=== PATIENT | female | born 1950 | race African-American/Black ===

== ENCOUNTER 2017-06-13 06:32 | Inpatient (IN) | payer OTHER ==
[~2017-06-13] VITALS: Ht 160 cm; Wt 68.0 kg
[~2017-06-13 06:32] MED LIST: ALLO300T PO; ASCO500T2 PO; CHOL400T2 PO; CIPR500T94 PO; FOLI1TAB16 PO; GABA-585 PO; LISI1TAB3 PO; OMEP20CA9 PO; OMEP40CA5 PO; VITA400C36 PO
[2017-06-13] MEDS ORDERED: IV NORMAL SALINE 1000ML BAG 1,000 ML IV SCH (06:44)
[2017-06-13] MEDS ORDERED: ONDANSETRON PF 4 MG/2 ML VIAL. IV ONE (06:45)
[2017-06-13 07:00] LABS: BASO % 0 % (0-3); EOS % 0 % (0-3); HEMATOCRIT 40.3 % (36.0-47.0); HEMOGLOBIN 14.3 g/dL (12.0-15.5); LYMPH # 0.4 x10^3/uL (1.0-4.8); LYMPH % 5 % (24-48); MEAN CORPUSCULAR HEMOGLOBIN 34 pg (25-35); MEAN CORPUSCULAR HGB CONC 36 g/dL (31-37); MEAN CORPUSCULAR VOLUME 96 fL (79-100); MONO % 9 % (0-9); NEUT % 85 % (31-73); PLATELET COUNT 353 x10^3/uL (140-400); RED BLOOD COUNT 4.21 x10^6/uL (3.50-5.40); RED CELL DISTRIBUTION WIDTH 14.7 % (11.5-14.5); WHITE BLOOD COUNT 8.3 x10^3/uL (4.0-11.0)
[2017-06-13] MEDS: fentaNYL PF VIAL 100 MCG/2 ML VIAL IV PRN ×6 (07:07→15:23)
[2017-06-13 07:26] LABS: CALCIUM 9.6 mg/dL (8.5-10.1); GFR 67.5; POTASSIUM 3.6 mmol/L (3.5-5.1)
[2017-06-13 07:38] LABS: ALBUMIN 3.7 g/dL (3.4-5.0); ALBUMIN/GLOBULIN RATIO 0.8 (1.0-1.7); TOTAL BILIRUBIN 0.6 mg/dL (0.2-1.0); TOTAL PROTEIN 8.3 g/dL (6.4-8.2)
[2017-06-13] MEDS ORDERED: IOHEXOL 300 MG/ML 75 ML VIAL IV ONE (07:45)
[2017-06-13] MEDS ORDERED: CONTRAST GIVEN MC PRN (08:00)
--- NOTE | 2017-06-13 08:15 | PHYS DOC ---
Past Medical History Past Medical History: Anemia, GERD, Hypertension, Unknown Additional Past Medical Histor: ULCERS, NEUROPATHY Past Surgical History: Hysterectomy Additional Past Surgical Histo: LAP Alcohol Use: Occasionally Drug Use: None Adult General Chief Complaint Chief Complaint: ABDOMINAL PAIN HPI HPI Patient is a 66 year old female brought to the ED by EMS from home with the complaint of abdominal pain and nausea and vomiting. Patient attributes this to eating [place] food. She doesn't remember when she ate it, she thinks yesterday for lunch. She thinks her stomach started hurting first. She has vomited about 3 times. No blood in the vomit. She's had no diarrhea "but I feel it coming on" . Patient had an episode like this once before and was hospitalized here [place]. It has not been a recurrent problem for her. She has no history of bowel obstruction. Patient does have a history of laparotomy for a perforated ulcer in the past. She has had a hysterectomy but she still has her gallbladder and appendix. In terms of alcohol, the patient states she does drink beer. She is not able to quantify how much better she drinks but they buy it in 30 packs. The patient states she wakes up about 11:00 and she has her first beer about 11:30 and she drinks off and on all day long but doesn't get drunk. PCP in [place] Review of Systems Review of Systems Constitutional: Denies fever or chills [] Respiratory: Denies cough or shortness of breath [] Cardiovascular: No additional information not addressed in HPI [] GI: As in history of present illness : Denies dysuria or hematuria [] Musculoskeletal: Denies back pain or joint pain [] Integument: Denies rash or skin lesions [] Current Medications Current Medications Current Medications Medications (Trade) Dose Ordered Sig/Suhas Start Time Stop Time Status Last Admin Dose Admin Fentanyl Citrate (Fentanyl 2ml Vial) 50 mcg PRN Q15MIN PRN 06/13/17 06:45 06/14/17 06:44 06/13/17 08:29 50 MCG Info (Do NOT chart on this entry -- for MONITORING) 1 each PRN DAILY PRN 06/13/17 08:00 06/15/17 07:59 Iohexol (Omnipaque 300 Mg/ml) 75 ml 1X ONCE 06/13/17 07:45 06/13/17 07:47 DC 06/13/17 07:53 75 ML Ondansetron HCl (Zofran) 4 mg 1X ONCE 06/13/17 06:45 06/13/17 06:48 DC 06/13/17 07:05 4 MG Sodium Chloride 1,000 ml @ 1,000 mls/hr Q1H 06/13/17 06:44 06/13/17 07:43 DC 06/13/17 07:05 1,000 MLS/HR Allergies Allergies Allergies Coded Allergies Type Severity Reaction Last Updated Verified No Known Medication Allergies Allergy Unknown 02/16/16 Yes aspirin Adverse Reaction Intermediate HX OF PERFORATED ULCERS 02/16/16 Yes Physical Exam Physical Exam Constitutional: Well developed, well nourished, alert, mentating normally, warm and dry, appears uncomfortable, writhing about on the cart. HENT: Normocephalic, atraumatic, bilateral external ears normal, nose normal. [ ] Eyes: conjunctiva normal, no discharge. [] Neck: Normal range of motion, no stridor. [] Cardiovascular:Heart rate regular rhythm, no murmur [] Lungs & Thorax: Bilateral breath sounds clear to auscultation [] Abdomen: Soft, nondistended, no increased tympany. Bowel sounds are present. The abdomen is diffusely tender to light palpation. Most tenderness is periumbilical and supraumbilical. No rebound or guarding. No mass, no pulsatile mass. Skin: Warm, dry, no erythema, no rash. [] Extremities: No tenderness, no cyanosis, no clubbing, ROM intact, no edema. [] Neurologic: Alert and oriented X 3, normal motor function, no focal deficits noted. [] Current Patient Data Vital Signs Vital Signs Date Time Temp Pulse Resp B/P (MAP) Pulse Ox O2 Delivery O2 Flow Rate FiO2 06/13/17 08:00 82 206/103 (137) 06/13/17 07:30 15 92 Room Air 06/13/17 06:37 98.2 98.2 Lab Values Laboratory Tests Test 06/13/17 06:50 White Blood Count 8.3 x10^3/uL (4.0-11.0) Red Blood Count 4.21 x10^6/uL (3.50-5.40) Hemoglobin 14.3 g/dL (12.0-15.5) Hematocrit 40.3 % (36.0-47.0) Mean Corpuscular Volume 96 fL (79-100) Mean Corpuscular Hemoglobin 34 pg (25-35) Mean Corpuscular Hemoglobin Concent 36 g/dL (31-37) Red Cell Distribution Width 14.7 % (11.5-14.5) H Platelet Count 353 x10^3/uL (140-400) Neutrophils (%) (Auto) 85 % (31-73) H Lymphocytes (%) (Auto) 5 % (24-48) L Monocytes (%) (Auto) 9 % (0-9) Eosinophils (%) (Auto) 0 % (0-3) Basophils (%) (Auto) 0 % (0-3) Neutrophils # (Auto) 7.1 x10^3uL (1.8-7.7) Lymphocytes # (Auto) 0.4 x10^3/uL (1.0-4.8) L Monocytes # (Auto) 0.7 x10^3/uL (0.0-1.1) Eosinophils # (Auto) 0.0 x10^3/uL (0.0-0.7) Basophils # (Auto) 0.0 x10^3/uL (0.0-0.2) Platelet Estimate Pending Sodium Level 121 mmol/L (136-145) L Potassium Level 3.6 mmol/L (3.5-5.1) Chloride Level 82 mmol/L (98-107) L Carbon Dioxide Level 29 mmol/L (21-32) Anion Gap 10 (6-14) Blood Urea Nitrogen 10 mg/dL (7-20) Creatinine 1.0 mg/dL (0.6-1.0) Estimated GFR (Cockcroft-Gault) 67.5 BUN/Creatinine Ratio 10 (6-20) Glucose Level 158 mg/dL (70-99) H Calcium Level 9.6 mg/dL (8.5-10.1) Total Bilirubin 0.6 mg/dL (0.2-1.0) Aspartate Amino Transferase (AST) 22 U/L (15-37) Alanine Aminotransferase (ALT) 28 U/L (14-59) Alkaline Phosphatase 169 U/L (46-116) H Total Protein 8.3 g/dL (6.4-8.2) H Albumin 3.7 g/dL (3.4-5.0) Albumin/Globulin Ratio 0.8 (1.0-1.7) L Lipase 1721 U/L (73-393) H Laboratory Tests 06/13/17 06:50 Laboratory Tests 06/13/17 06:50 EKG EKG [] Radiology/Procedures Radiology/Procedures [] Course & Med Decision Making Course & Med Decision Making Pertinent Labs and Imaging studies reviewed. (See chart for details) 66-year-old female who is in good general health presents with acute onset yesterday of abdominal pain with 3 episodes of vomiting. I discussed with the patient we will start some IV fluids, IV pain and nausea medication. She is agreeable to that plan. I reviewed her chart. She was seen here last year for similar episode and recovered quickly. At that time her lipase was just above the upper limit of normal. There is a possible pancreas abnormality on the CT scan that recommended follow-up with her primary care physician. I discussed with the patient and she states that she has had a couple of scan since then. They check it about every 6 months. As far she know she believes it is stable. Today, she has acute pancreatitis. Also hyponatremia. I discussed the case with Dr. Liang, [facility]. He will admit the patient. I wrote bridge orders. [] Dragon Disclaimer Dragon Disclaimer This electronic medical record was generated, in whole or in part, using a voice recognition dictation system. Departure Departure Impression: Primary Impression: Acute pancreatitis Disposition: ADMITTED INPATIENT Admitting Physician: Yelena Liang Condition: STABLE Referrals: JENARO TOWNSEND (PCP) REG QURESHI MD Jun 13, 2017 08:15
[2017-06-13] MEDS ORDERED: ONDANSETRON PF 4 MG/2 ML VIAL. IV PRN (08:30)
--- NOTE | 2017-06-13 08:47 | RAD ---
CT of the abdomen and pelvis with contrast, 06/13/2017: History: Abdominal pain, nausea and vomiting Multidetector CT imaging was performed following an IV bolus injection of iodinated contrast material. No oral contrast material was administered for this study. Comparison is made to a study from 02/17/2016. There are mild streaky opacities in both lung bases compatible with atelectasis. There is no evidence of a hepatic mass or bile duct dilatation. The gallbladder is unremarkable. The pancreatic head cannot be clearly from the unopacified duodenum, however, it appears to be mildly enlarged. It demonstrates heterogeneously decreased density relative to the pancreatic body. On the previous study there was a cystic lesion at this level, no longer visible. There is a new 3 cm cystic structure related to the pancreatic tail adjacent to the splenic hilum. There was no mass or unusual cystic structure in this region on the previous CT study. There is minimal streaky increased density in the adjacent pancreatic compatible with inflammation. The findings suggest chronic or recurrent pancreatitis with pseudocyst formation. The spleen shows no intrinsic abnormality. There is a small adjacent accessory splenule. There are several small cysts in the kidneys. The kidneys show no evidence of obstruction. There is moderate aortoiliac calcific plaquing with slight unchanged dilatation of the infrarenal abdominal aorta. The uterus is surgically absent. No abdominal or pelvic adenopathy is detected. The bowel loops are not dilated. A portion of the appendix is visualized and it shows no abnormality. There appears to be mild mural thickening involving the distal aspect of the stomach, although lack of gastric distention may be contributing to this appearance. No free air is present in the abdomen. There is a small amount of free fluid in the deep pelvis, increased since the previous study. Again noted is a small ventral hernia along superior aspect of the umbilicus, containing only fat. IMPRESSION: 1. Abnormal pancreas with a new cyst in the pancreatic tail and mild adjacent peripancreatic inflammation. The previously seen cyst in the pancreatic head has resolved with residual abnormal heterogeneity in the pancreatic head. The findings suggest recurrent anchored tightness with pseudocyst formation. A pancreatic head neoplasm cannot be entirely excluded and follow-up imaging is suggested. 2. Mild mural thickening involving the distal stomach suggesting nonspecific gastritis. 3. Small amount of free fluid in the pelvis. 4. Ventral hernia containing only fat. PQRS Compliance Statement: One or more of the following individualized dose reduction techniques were utilized for this examination: 1. Automated exposure control 2. Adjustment of the mA and/or kV according to patient size 3. Use of iterative reconstruction technique
[2017-06-13 09:36] LABS: PLT ESTIMATE ADEQUATE (ADEQUATE)
[2017-06-13] MEDS ORDERED: cloNIDine HCL 0.2 MG TABLET PO PRN (10:00)
[2017-06-13] MEDS ORDERED: cloNIDine HCL 0.3 MG TABLET PO STA (10:03)
[2017-06-13] MEDS: IV NORMAL SALINE 1000ML BAG 1,000 ML IV SCH ×2 (10:26→21:56)
--- NOTE | 2017-06-13 11:22 | HP ---
ADMIT DATE: 06/13/2017 CHIEF COMPLAINT: Abdominal pain. HISTORY OF PRESENT ILLNESS: The patient is a pleasant 66-year-old female who presents to the ER with abdominal pain. We checked some enzymes, her lipase is high. We suspect she has pancreatitis. She rates her symptoms at 9/10, worse with food, better with sitting still. I discussed the case with the ER physician. We are going to admit the patient with alcoholic pancreatitis. PAST MEDICAL HISTORY: Probable alcoholism. She states she drinks beer daily, anemia, GERD, hypertension, peptic ulcer disease, neuropathy, laparoscopic exploration. ALLERGIES: ASPIRIN. FAMILY HISTORY: Diabetes. SOCIAL HISTORY: She does smoke and she drinks daily. MEDICATIONS: Reviewed. REVIEW OF SYSTEMS: GENERAL: No history of weight change, weakness or fevers. SKIN: No bruising, hair changes or rashes. EYES: No blurred, double or loss of vision. NOSE AND THROAT: No history of nosebleeds, hoarseness or sore throat. HEART: No history of palpitations, chest pain or shortness of breath on exertion. LUNGS: Denies cough, hemoptysis, wheezing or shortness of breath. GASTROINTESTINAL: She complains of abdominal pain. GENITOURINARY: No history of frequency, urgency, hesitancy or nocturia. NEUROLOGIC: Denies history of numbness, tingling, tremor or weakness. PSYCHIATRIC: No history of panic, anxiety or depression. ENDOCRINE: No history of heat or cold intolerance, polyuria or polydipsia. EXTREMITIES: Denies muscle weakness, joint pain, pain on walking or stiffness. PHYSICAL EXAMINATION: VITAL SIGNS: Temperature afebrile, pulse 74, respirations 18, blood pressure 217/90. GENERAL: She is alert, cooperative. HEART: Normal S1, S2. LUNGS: Clear. ABDOMEN: Soft. Decreased bowel sounds, tender. EXTREMITIES: No edema. SKIN: No rashes. PSYCHIATRIC: She is depressed. VASCULAR: Good capillary refill. ENDOCRINE: No thyromegaly. LYMPHATICS: No cervical nodes. HEMATOPOIETIC: No bruising. LABORATORY DATA: Reviewed. ASSESSMENT AND PLAN: Alcoholic pancreatitis and hypertensive emergency. The patient is being admitted. We will give her p.r.n. , alcohol withdrawal protocol, n.p.o., IV fluids. Continue home medicines. YEISONL Jose Alfredo UPTON DO DR: Elizabeth JOB#: [id number] / [id number]
[2017-06-13 11:26] VITALS: BP 179/90
[2017-06-13] MEDS ORDERED: MULT1TAB52 PO (11:28)
[2017-06-13] MEDS ORDERED: COD1CAPS2 PO (11:28)
[2017-06-13] MEDS ORDERED: CYAN1TAB50 SL (11:28)
[2017-06-13] MEDS ORDERED: LISI1TAB7 PO (11:28)
[2017-06-13] MEDS ORDERED: BLAC80CA PO (11:28)
[2017-06-13] MEDS ORDERED: BIOT5000 PO (11:28)
[2017-06-13] MEDS ORDERED: MULT-658 PO (11:28)
[2017-06-13 11:31] VITALS: BP 179/90
[2017-06-13 11:59] LABS: BARBITURATES NEG (NEG); BENZODIAZEPINES NEG (NEG); CANNABINOIDS NEG (NEG); COCAINE NEG (NEG); METHADONE NEG (NEG); OPIATES NEG (NEG); PHENCYCLIDINE NEG (NEG)
[2017-06-13] MEDS: FAMOTIDINE 20 MG/2 ML VIAL IVP SCH ×2 (12:20→21:56)
--- NOTE | 2017-06-13 12:50 | PDOC2 ---
GI CONSULT Reason For Consult: Acute pancreatitis HPI: HPI: 66 y/o female admitted through ER. Tripped and fell on 06/09, has had some upper abd and chest pain since then; however pain became worse and complicated w / nausea after eating [place] food a few times over the weekend (first at the buffet, then leftovers at home). Thinks she has food poisoning. No vomiting or diarrhea. H/o GERD controlled w/ omeprazole QD, additional h/o gastric ulcer (thought to be NSAID related) requiring laparotomy (). Unclear if has had EGD since. No diarrhea, constipation, hematochezia, or melena. Last colonoscopy >10 years ago, recalls as normal. Had previous admission for abd pain and borderline elevated lipase. No gallbladder or liver history although drinks significantly, currently 8 beers daily. No NSAIDs. Workup here shows elevated lipase and abnormal CT w/ abnormal pancreas w/ new cyst in pancreatic tail and mild adjacent peripancreatic inflammation. Tox screen neg, Alk Phos 169, Na 121. RN called earlier - pt requesting omeprazole; was started on IV H2 jason. PMH: PMH: HTN, peripheral neuropathy, GERD, PUD, pancreatitis, OA, gout, UTIs, hysterectomy, laparotomy for FH: Family History: Cancer (leukemia), CVA, DM, Hypertension, Thyroid dysfunction Social History: Smoke: <1 pack per day ALCOHOL: heavy (currently about 8 cans of beer daily) Drugs: None ROS: GEN: Denies fevers, chills, sweats HEENT: Denies blurred vision, sore throat CV: Denies chest pain RESP: Denies shortness of air, cough GI: Per HPI : Denies hematuria, dysuria ENDO: Denies weight changes NEURO: Denies confusion, dizziness MSK: Denies weakness, joint pain/swelling SKIN: Denies jaundice, pruritus Vitals: Vitals: Vital Signs Date Time Temp Pulse Resp B/P (MAP) Pulse Ox O2 Delivery O2 Flow Rate FiO2 06/13/17 11:54 96 06/13/17 11:31 98.6 74 179/90 (119) 98.6 06/13/17 11:26 19 Room Air Labs: Labs: Laboratory Tests Test 06/13/17 06:50 06/13/17 08:21 White Blood Count 8.3 x10^3/uL (4.0-11.0) Red Blood Count 4.21 x10^6/uL (3.50-5.40) Hemoglobin 14.3 g/dL (12.0-15.5) Hematocrit 40.3 % (36.0-47.0) Mean Corpuscular Volume 96 fL (79-100) Mean Corpuscular Hemoglobin 34 pg (25-35) Mean Corpuscular Hemoglobin Concent 36 g/dL (31-37) Red Cell Distribution Width 14.7 % (11.5-14.5) Platelet Count 353 x10^3/uL (140-400) Neutrophils (%) (Auto) 85 % (31-73) Lymphocytes (%) (Auto) 5 % (24-48) Monocytes (%) (Auto) 9 % (0-9) Eosinophils (%) (Auto) 0 % (0-3) Basophils (%) (Auto) 0 % (0-3) Neutrophils # (Auto) 7.1 x10^3uL (1.8-7.7) Lymphocytes # (Auto) 0.4 x10^3/uL (1.0-4.8) Monocytes # (Auto) 0.7 x10^3/uL (0.0-1.1) Eosinophils # (Auto) 0.0 x10^3/uL (0.0-0.7) Basophils # (Auto) 0.0 x10^3/uL (0.0-0.2) Segmented Neutrophils % 92 % (35-66) Lymphocytes % 5 % (24-48) Monocytes % 3 % (0-10) Platelet Estimate Adequate (ADEQUATE) Sodium Level 121 mmol/L (136-145) Potassium Level 3.6 mmol/L (3.5-5.1) Chloride Level 82 mmol/L (98-107) Carbon Dioxide Level 29 mmol/L (21-32) Anion Gap 10 (6-14) Blood Urea Nitrogen 10 mg/dL (7-20) Creatinine 1.0 mg/dL (0.6-1.0) Estimated GFR (Cockcroft-Gault) 67.5 BUN/Creatinine Ratio 10 (6-20) Glucose Level 158 mg/dL (70-99) Calcium Level 9.6 mg/dL (8.5-10.1) Total Bilirubin 0.6 mg/dL (0.2-1.0) Aspartate Amino Transf (AST/SGOT) 22 U/L (15-37) Alanine Aminotransferase (ALT/SGPT) 28 U/L (14-59) Alkaline Phosphatase 169 U/L (46-116) Total Protein 8.3 g/dL (6.4-8.2) Albumin 3.7 g/dL (3.4-5.0) Albumin/Globulin Ratio 0.8 (1.0-1.7) Lipase 1721 U/L (73-393) Urine Opiates Screen Neg (NEG) Urine Methadone Screen Neg (NEG) Urine Barbiturates Neg (NEG) Urine Phencyclidine Screen Neg (NEG) Urine Amphetamine/Methamphetamine Neg (NEG) Urine Benzodiazepines Screen Neg (NEG) Urine Cocaine Screen Neg (NEG) Urine Cannabinoids Screen Neg (NEG) Urine Ethyl Alcohol Neg (NEG) Allergies: Coded Allergies: No Known Medication Allergies (Verified Allergy, Unknown, 02/16/16) aspirin (Verified Adverse Reaction, Intermediate, HX OF PERFORATED ULCERS , 02/16/16) Medications: Current Medications Medications (Trade) Dose Ordered Sig/Suhas Route PRN Reason Start Time Stop Time Status Last Admin Dose Admin Fentanyl Citrate (Fentanyl 2ml Vial) 50 mcg PRN Q15MIN PRN IV PAIN GREATER THAN 3/10 06/13/17 06:45 06/14/17 06:44 06/13/17 09:26 Sodium Chloride 1,000 ml @ 1,000 mls/hr Q1H IV 06/13/17 06:44 06/13/17 07:43 DC 06/13/17 07:05 Ondansetron HCl (Zofran) 4 mg 1X ONCE IV 06/13/17 06:45 06/13/17 06:48 DC 06/13/17 07:05 Iohexol (Omnipaque 300 Mg/ml) 75 ml 1X ONCE IV 06/13/17 07:45 06/13/17 07:47 DC 06/13/17 07:53 Ondansetron HCl (Zofran) 4 mg PRN Q8HRS PRN IV NAUSEA/VOMITING 06/13/17 08:30 06/14/17 08:29 06/13/17 10:26 Fentanyl Citrate (Fentanyl 2ml Vial) 50 mcg PRN Q2HR PRN IV PAIN 06/13/17 08:30 06/14/17 08:29 06/13/17 10:27 Sodium Chloride 1,000 ml @ 125 mls/hr Q8H IV 06/13/17 08:16 06/14/17 08:15 06/13/17 10:26 Clonidine HCl (Catapres) 0.3 mg 1X STAT PO 06/13/17 10:03 06/13/17 10:04 DC 06/13/17 10:22 Famotidine (Pepcid) 20 mg BID IVP 06/13/17 12:30 06/13/17 12:20 Imaging: Imaging: CT A/P IMPRESSION: 1. Abnormal pancreas with a new cyst in the pancreatic tail and mild adjacent peripancreatic inflammation. The previously seen cyst in the pancreatic head has resolved with residual abnormal heterogeneity in the pancreatic head. The findings suggest recurrent anchored tightness with pseudocyst formation. A pancreatic head neoplasm cannot be entirely excluded and follow-up imaging is suggested. 2. Mild mural thickening involving the distal stomach suggesting nonspecific gastritis. 3. Small amount of free fluid in the pelvis. 4. Ventral hernia containing only fat. PE: GEN: looks uncomfortable HEENT: Atraumatic, PERRL LUNGS: CTAB HEART: RRR ABD: epigastric and RUQ pain worst, some periumbilical, BS+ EXTREMITY: No edema SKIN: No rashes, no jaundice NEURO/PSYCH: A & O 3 A/P: A/P: Upper abd and chest pain, nausea Elevated lipase (1721), h/o pancreatitis, heavy alcohol use, abnormal CT -abnormal pancreas w/ new cyst in pancreatic tail and mild adjacent peripancreatic inflammation GERD, h/o requiring laparotomy -on PPI QD CRC screen -colonoscopy >10 years ago HTN Hyponatremia -- Likely alcohol-induced pancreatitis. NPO, supportive care. Empiric IV H2 jason. Defer hyponatremia to primary. Recent fall - ?CXR GLORIA KOHLI Jun 13, 2017 12:50
[2017-06-13 13:04] LABS: BILIRUBIN,URINE NEGATIVE (NEG); GLUCOSE,URINE 100 mg/dL (NEG); NITRITE,URINE NEGATIVE (NEG); PROTEIN,URINE NEGATIVE (NEG-TRACE); UROBILINOGEN,URINE 0.2 mg/dL (0.2 mg/dL)
[2017-06-13 13:27] LABS: BACTERIA,URINE FEW /HPF (0-FEW); RBC,URINE OCC /HPF (0-2); SQUAMOUS EPITHELIAL CELL,UR FEW /LPF; WBC,URINE OCC /HPF (0-4)
[2017-06-13 15:23] VITALS: BP 173/87
[2017-06-13 19:49] VITALS: BP 185/95
[2017-06-13 23:52] VITALS: BP 182/88
[2017-06-14 03:25] VITALS: BP 175/81
[2017-06-14 06:52] VITALS: BP 171/92
[2017-06-14] MEDS: FAMOTIDINE 20 MG/2 ML VIAL IVP SCH ×2 (09:18→20:26)
--- NOTE | 2017-06-14 09:49 | PDOC ---
Subjective: Subjective: Abd feels better, would like to try drinking. Biggest complaint is chest wall pain w/ breathing and moving. Feels SOA. Objective: Vital Signs: Vital Signs Date Time Temp Pulse Resp B/P (MAP) Pulse Ox O2 Delivery O2 Flow Rate FiO2 06/14/17 06:52 98.6 89 20 171/92 (118) 98 Room Air 98.6 Labs: No labs today. PE: GEN: NAD, sitting up in bed, was talking on phone LUNGS: clear HEART: chest wall tenderness ABD: less discomfort NEURO/PSYCH: A & O 3 A/P: Chest wall pain, SOA -fell last week at home Abd pain, nausea - improved Elevated lipase (1721), h/o pancreatitis, heavy alcohol use, abnormal CT -abnormal pancreas w/ new cyst in pancreatic tail and mild adjacent peripancreatic inflammation GERD, h/o requiring laparotomy -on PPI QD Hyponatremia -- Recheck basic labs and lipase. Try clears. Defer chest pain to primary. GLORIA KOHLI Jun 14, 2017 09:49
[2017-06-14 10:06] LABS: BASO % 0 % (0-3); EOS % 0 % (0-3); HEMATOCRIT 40.3 % (36.0-47.0); HEMOGLOBIN 13.8 g/dL (12.0-15.5); LYMPH # 0.6 x10^3/uL (1.0-4.8); LYMPH % 6 % (24-48); MEAN CORPUSCULAR HEMOGLOBIN 34 pg (25-35); MEAN CORPUSCULAR HGB CONC 34 g/dL (31-37); MEAN CORPUSCULAR VOLUME 99 fL (79-100); MONO % 13 % (0-9); NEUT % 81 % (31-73); PLATELET COUNT 322 x10^3/uL (140-400); RED BLOOD COUNT 4.08 x10^6/uL (3.50-5.40); WHITE BLOOD COUNT 10.8 x10^3/uL (4.0-11.0)
[2017-06-14 10:25] LABS: ALBUMIN 3.5 g/dL (3.4-5.0); ALBUMIN/GLOBULIN RATIO 0.9 (1.0-1.7); CALCIUM 9.1 mg/dL (8.5-10.1); CREATININE 1.1 mg/dL (0.6-1.0); GFR 60.5; POTASSIUM 3.4 mmol/L (3.5-5.1); TOTAL BILIRUBIN 0.7 mg/dL (0.2-1.0); TOTAL PROTEIN 7.4 g/dL (6.4-8.2)
--- NOTE | 2017-06-14 10:55 | PDOC ---
PROGRESS NOTES Chief Complaint Chief Complaint Abdominal pain Pancreatitis PMH: Alcoholism Anemia HTN GERD PUD Neuropathy History of Present Illness History of Present Illness Pt was laying in bed and conversant. She was pleasant and making jokes. She appears to be in mild pain but no new other complaints. She repeatedly mentions she will no longer be drinking any alcohol. Discussed plan of care including letting her pancreas rest and supportive measures. GI - alcoholic pancreatitis -NPO, supportive measures, H2 jason -Possible CXR due to recent fall CT abdomen - abnormal pancreas with new cyst located in the pancreatic tail Vitals Vitals Vital Signs Date Time Temp Pulse Resp B/P (MAP) Pulse Ox O2 Delivery O2 Flow Rate FiO2 06/14/17 06:52 98.6 89 20 171/92 (118) 98 Room Air 98.6 Physical Exam General: Alert, Oriented X3, Cooperative, mild distress Heart: Regular rate, Normal S1, Normal S2 Lungs: Clear Abdomen: Normal bowel sounds, Other (TTP) Extremities: No clubbing, No cyanosis Skin: No rashes, No breakdown Labs LABS Laboratory Tests Test 06/14/17 09:23 White Blood Count 10.8 x10^3/uL (4.0-11.0) Red Blood Count 4.08 x10^6/uL (3.50-5.40) Hemoglobin 13.8 g/dL (12.0-15.5) Hematocrit 40.3 % (36.0-47.0) Mean Corpuscular Volume 99 fL (79-100) Mean Corpuscular Hemoglobin 34 pg (25-35) Mean Corpuscular Hemoglobin Concent 34 g/dL (31-37) Red Cell Distribution Width 15.0 % (11.5-14.5) Platelet Count 322 x10^3/uL (140-400) Neutrophils (%) (Auto) 81 % (31-73) Lymphocytes (%) (Auto) 6 % (24-48) Monocytes (%) (Auto) 13 % (0-9) Eosinophils (%) (Auto) 0 % (0-3) Basophils (%) (Auto) 0 % (0-3) Neutrophils # (Auto) 8.8 x10^3uL (1.8-7.7) Lymphocytes # (Auto) 0.6 x10^3/uL (1.0-4.8) Monocytes # (Auto) 1.4 x10^3/uL (0.0-1.1) Eosinophils # (Auto) 0.0 x10^3/uL (0.0-0.7) Basophils # (Auto) 0.0 x10^3/uL (0.0-0.2) Sodium Level 126 mmol/L (136-145) Potassium Level 3.4 mmol/L (3.5-5.1) Chloride Level 88 mmol/L (98-107) Carbon Dioxide Level 29 mmol/L (21-32) Anion Gap 9 (6-14) Blood Urea Nitrogen 11 mg/dL (7-20) Creatinine 1.1 mg/dL (0.6-1.0) Estimated GFR (Cockcroft-Gault) 60.5 BUN/Creatinine Ratio 10 (6-20) Glucose Level 110 mg/dL (70-99) Calcium Level 9.1 mg/dL (8.5-10.1) Total Bilirubin 0.7 mg/dL (0.2-1.0) Aspartate Amino Transf (AST/SGOT) 17 U/L (15-37) Alanine Aminotransferase (ALT/SGPT) 22 U/L (14-59) Alkaline Phosphatase 138 U/L (46-116) Total Protein 7.4 g/dL (6.4-8.2) Albumin 3.5 g/dL (3.4-5.0) Albumin/Globulin Ratio 0.9 (1.0-1.7) Lipase 1331 U/L (73-393) Review of Systems Review of Systems Pt complains of ab pain Pt fatigued Assessment and Plan Assessmemt and Plan Problems Medical Problems: (1) Acute pancreatitis Status: Acute Abdominal pain Pancreatitis PMH: Alcoholism Anemia HTN GERD PUD Neuropathy Plan: NPO IVF pain management possible CXR - per GI Appreciate subspecialists input recheck labs PT/OT Problems: Comment Review of Relevant I have reviewed the following items patrizia (where applicable) has been applied. Labs Laboratory Tests Test 06/13/17 06:50 06/13/17 08:21 06/14/17 09:23 White Blood Count 8.3 x10^3/uL (4.0-11.0) 10.8 x10^3/uL (4.0-11.0) Red Blood Count 4.21 x10^6/uL (3.50-5.40) 4.08 x10^6/uL (3.50-5.40) Hemoglobin 14.3 g/dL (12.0-15.5) 13.8 g/dL (12.0-15.5) Hematocrit 40.3 % (36.0-47.0) 40.3 % (36.0-47.0) Mean Corpuscular Volume 96 fL (79-100) 99 fL (79-100) Mean Corpuscular Hemoglobin 34 pg (25-35) 34 pg (25-35) Mean Corpuscular Hemoglobin Concent 36 g/dL (31-37) 34 g/dL (31-37) Red Cell Distribution Width 14.7 % (11.5-14.5) 15.0 % (11.5-14.5) Platelet Count 353 x10^3/uL (140-400) 322 x10^3/uL (140-400) Neutrophils (%) (Auto) 85 % (31-73) 81 % (31-73) Lymphocytes (%) (Auto) 5 % (24-48) 6 % (24-48) Monocytes (%) (Auto) 9 % (0-9) 13 % (0-9) Eosinophils (%) (Auto) 0 % (0-3) 0 % (0-3) Basophils (%) (Auto) 0 % (0-3) 0 % (0-3) Neutrophils # (Auto) 7.1 x10^3uL (1.8-7.7) 8.8 x10^3uL (1.8-7.7) Lymphocytes # (Auto) 0.4 x10^3/uL (1.0-4.8) 0.6 x10^3/uL (1.0-4.8) Monocytes # (Auto) 0.7 x10^3/uL (0.0-1.1) 1.4 x10^3/uL (0.0-1.1) Eosinophils # (Auto) 0.0 x10^3/uL (0.0-0.7) 0.0 x10^3/uL (0.0-0.7) Basophils # (Auto) 0.0 x10^3/uL (0.0-0.2) 0.0 x10^3/uL (0.0-0.2) Segmented Neutrophils % 92 % (35-66) Lymphocytes % 5 % (24-48) Monocytes % 3 % (0-10) Platelet Estimate Adequate (ADEQUATE) Sodium Level 121 mmol/L (136-145) 126 mmol/L (136-145) Potassium Level 3.6 mmol/L (3.5-5.1) 3.4 mmol/L (3.5-5.1) Chloride Level 82 mmol/L (98-107) 88 mmol/L (98-107) Carbon Dioxide Level 29 mmol/L (21-32) 29 mmol/L (21-32) Anion Gap 10 (6-14) 9 (6-14) Blood Urea Nitrogen 10 mg/dL (7-20) 11 mg/dL (7-20) Creatinine 1.0 mg/dL (0.6-1.0) 1.1 mg/dL (0.6-1.0) Estimated GFR (Cockcroft-Gault) 67.5 60.5 BUN/Creatinine Ratio 10 (6-20) 10 (6-20) Glucose Level 158 mg/dL (70-99) 110 mg/dL (70-99) Calcium Level 9.6 mg/dL (8.5-10.1) 9.1 mg/dL (8.5-10.1) Total Bilirubin 0.6 mg/dL (0.2-1.0) 0.7 mg/dL (0.2-1.0) Aspartate Amino Transf (AST/SGOT) 22 U/L (15-37) 17 U/L (15-37) Alanine Aminotransferase (ALT/SGPT) 28 U/L (14-59) 22 U/L (14-59) Alkaline Phosphatase 169 U/L (46-116) 138 U/L (46-116) Total Protein 8.3 g/dL (6.4-8.2) 7.4 g/dL (6.4-8.2) Albumin 3.7 g/dL (3.4-5.0) 3.5 g/dL (3.4-5.0) Albumin/Globulin Ratio 0.8 (1.0-1.7) 0.9 (1.0-1.7) Lipase 1721 U/L (73-393) 1331 U/L (73-393) Urine Collection Type Unknown Urine Color Yellow Urine Clarity Clear Urine pH 7.0 Urine Specific [place] 1.020 Urine Protein Negative mg/dL (NEG-TRACE) Urine Glucose (UA) 100 mg/dL (NEG) Urine Ketones (Stick) Trace mg/dL (NEG) Urine Blood Negative (NEG) Urine Nitrite Negative (NEG) Urine Bilirubin Negative (NEG) Urine Urobilinogen Dipstick 0.2 mg/dL (0.2 mg/dL) Urine Leukocyte Esterase Negative (NEG) Urine RBC Occ /HPF (0-2) Urine WBC Occ /HPF (0-4) Urine Squamous Epithelial Cells Few /LPF Urine Bacteria Few /HPF (0-FEW) Urine Hyaline Casts Few /HPF Urine Opiates Screen Neg (NEG) Urine Methadone Screen Neg (NEG) Urine Barbiturates Neg (NEG) Urine Phencyclidine Screen Neg (NEG) Urine Amphetamine/Methamphetamine Neg (NEG) Urine Benzodiazepines Screen Neg (NEG) Urine Cocaine Screen Neg (NEG) Urine Cannabinoids Screen Neg (NEG) Urine Ethyl Alcohol Neg (NEG) Laboratory Tests Test 06/14/17 09:23 White Blood Count 10.8 x10^3/uL (4.0-11.0) Red Blood Count 4.08 x10^6/uL (3.50-5.40) Hemoglobin 13.8 g/dL (12.0-15.5) Hematocrit 40.3 % (36.0-47.0) Mean Corpuscular Volume 99 fL (79-100) Mean Corpuscular Hemoglobin 34 pg (25-35) Mean Corpuscular Hemoglobin Concent 34 g/dL (31-37) Red Cell Distribution Width 15.0 % (11.5-14.5) Platelet Count 322 x10^3/uL (140-400) Neutrophils (%) (Auto) 81 % (31-73) Lymphocytes (%) (Auto) 6 % (24-48) Monocytes (%) (Auto) 13 % (0-9) Eosinophils (%) (Auto) 0 % (0-3) Basophils (%) (Auto) 0 % (0-3) Neutrophils # (Auto) 8.8 x10^3uL (1.8-7.7) Lymphocytes # (Auto) 0.6 x10^3/uL (1.0-4.8) Monocytes # (Auto) 1.4 x10^3/uL (0.0-1.1) Eosinophils # (Auto) 0.0 x10^3/uL (0.0-0.7) Basophils # (Auto) 0.0 x10^3/uL (0.0-0.2) Sodium Level 126 mmol/L (136-145) Potassium Level 3.4 mmol/L (3.5-5.1) Chloride Level 88 mmol/L (98-107) Carbon Dioxide Level 29 mmol/L (21-32) Anion Gap 9 (6-14) Blood Urea Nitrogen 11 mg/dL (7-20) Creatinine 1.1 mg/dL (0.6-1.0) Estimated GFR (Cockcroft-Gault) 60.5 BUN/Creatinine Ratio 10 (6-20) Glucose Level 110 mg/dL (70-99) Calcium Level 9.1 mg/dL (8.5-10.1) Total Bilirubin 0.7 mg/dL (0.2-1.0) Aspartate Amino Transf (AST/SGOT) 17 U/L (15-37) Alanine Aminotransferase (ALT/SGPT) 22 U/L (14-59) Alkaline Phosphatase 138 U/L (46-116) Total Protein 7.4 g/dL (6.4-8.2) Albumin 3.5 g/dL (3.4-5.0) Albumin/Globulin Ratio 0.9 (1.0-1.7) Lipase 1331 U/L (73-393) Medications Current Medications Fentanyl Citrate (Fentanyl 2ml Vial) 50 mcg PRN Q15MIN PRN IV PAIN GREATER THAN 3/10 Last administered on 06/13/17 09:26; Start 06/13/17 at 06:45; Stop 06/14/17 at 06:44; Status DC Sodium Chloride 1,000 ml @ 1,000 mls/hr Q1H IV Last administered on 06/13/17 07:05; Start 06/13/17 at 06:44; Stop 06/13/17 at 07:43; Status DC Ondansetron HCl (Zofran) 4 mg 1X ONCE IV Last administered on 06/13/17 07:05 ; Start 06/13/17 at 06:45; Stop 06/13/17 at 06:48; Status DC Iohexol (Omnipaque 300 Mg/ml) 75 ml 1X ONCE IV Last administered on 06/13/17 07:53; Start 06/13/17 at 07:45; Stop 06/13/17 at 07:47; Status DC Info (Do NOT chart on this entry -- for MONITORING) 1 each PRN DAILY PRN MC SEE COMMENTS; Start 06/13/17 at 08:00; Stop 06/15/17 at 07:59 Ondansetron HCl (Zofran) 4 mg PRN Q8HRS PRN IV NAUSEA/VOMITING Last administered on 06/13/17 10:26; Start 06/13/17 at 08:30; Stop 06/14/17 at 08:29 ; Status DC Fentanyl Citrate (Fentanyl 2ml Vial) 50 mcg PRN Q2HR PRN IV PAIN Last administered on 06/13/17 15:23; Start 06/13/17 at 08:30; Stop 06/14/17 at 08:29 ; Status DC Sodium Chloride 1,000 ml @ 125 mls/hr Q8H IV Last administered on 06/13/17 21 :56; Start 06/13/17 at 08:16; Stop 06/14/17 at 08:15; Status DC Clonidine HCl (Catapres) 0.3 mg 1X STAT PO Last administered on 06/13/17 10: 22; Start 06/13/17 at 10:03; Stop 06/13/17 at 10:04; Status DC Clonidine HCl (Catapres) 0.2 mg PRN Q4HRS PRN PO ELEVATED BP, SEE COMMENTS; Start 06/13/17 at 10:00 Famotidine (Pepcid) 20 mg BID IVP Last administered on 06/14/17 09:18; Start 06/13/17 at 12:30 Active Scripts Active Omeprazole 40 Mg Capsule. 1 Cap PO DAILY Reported Cod Liver Oil 1 Each Capsule 1 Each PO DAILY Biotin 5,000 Mcg Tab.rapdis 5,000 Mcg PO DAILY Black Cohosh Extract (Black Cohosh Root Extract) 80 Mg Capsule 40 Mg PO PRN PRN Centrum Silver Tablet (Multivits-Min/Fa/Lycopene/Lut) 1 Each Tablet 1 Each PO DAILY Vitamin B-12 5,000 Mcg Tab Sl (Cyanocobalamin/Cobamamide) 1 Each Tab.subl 1 Each SL Multivitamins (Multivitamin) 1 Each Tablet 1 Tab PO DAILY Lisinopril-Hctz 20-25 Mg Tab (Lisinopril/Hydrochlorothiazide) 1 Each Tablet 1 Tab PO DAILY Vitamin E (Vitamin E Mixed) 400 Unit Capsule 400 Unit PO DAILY Vitamin C (Ascorbic Acid) 500 Mg Tablet 500 Mg PO DAILY Vitamin D3 (Cholecalciferol (Vitamin D3)) 400 Unit Tablet 400 Unit PO DAILY Folic Acid 1 Mg Tablet 1 Tab PO DAILY Gabapentin 100 Mg Capsule 300 Mg PO BID Vitals/I & O Vital Sign - Last 24 Hours 06/13/17 06/13/17 06/13/17 06/13/17 11:16 11:26 11:31 11:53 Temp 98.6 98.6 98.6 98.6 Pulse 74 74 Resp 19 B/P (MAP) 179/90 (119) 179/90 (119) Pulse Ox 96 96 96 O2 Delivery Room Air Room Air 06/13/17 06/13/17 06/13/17 06/13/17 12:37 15:23 15:23 17:11 Temp 98.3 98.3 Pulse 72 Resp 19 B/P (MAP) 173/87 (115) Pulse Ox 96 96 96 96 O2 Delivery Room Air Room Air Room Air Room Air 06/13/17 06/13/17 06/13/17 06/14/17 19:49 20:00 23:52 03:25 Temp 98.1 98.3 98.2 98.1 98.3 98.2 Pulse 77 75 68 Resp 18 18 16 B/P (MAP) 185/95 (125) 182/88 (119) 175/81 (112) Pulse Ox 100 100 97 O2 Delivery Room Air Room Air Room Air Room Air 06/14/17 06:52 Temp 98.6 98.6 Pulse 89 Resp 20 B/P (MAP) 171/92 (118) Pulse Ox 98 O2 Delivery Room Air IRMA UPTON III DO Jun 14, 2017 10:55
[2017-06-14 10:58] VITALS: BP 153/83
[2017-06-14] MEDS: IV NORMAL SALINE 1000ML BAG 1,000 ML IV SCH (14:16)
[2017-06-14 14:41] VITALS: BP 129/90
[2017-06-14 19:41] VITALS: BP 163/85
[2017-06-14 23:07] VITALS: BP 125/68
[2017-06-15 03:26] VITALS: BP 127/67
[2017-06-15 07:16] LABS: BASO % 0 % (0-3); EOS % 0 % (0-3); HEMATOCRIT 34.4 % (36.0-47.0); HEMOGLOBIN 11.5 g/dL (12.0-15.5); LYMPH % 9 % (24-48); MEAN CORPUSCULAR HEMOGLOBIN 33 pg (25-35); MEAN CORPUSCULAR HGB CONC 34 g/dL (31-37); MEAN CORPUSCULAR VOLUME 99 fL (79-100); MONO % 15 % (0-9); NEUT % 76 % (31-73); PLATELET COUNT 220 x10^3/uL (140-400); RED BLOOD COUNT 3.47 x10^6/uL (3.50-5.40); RED CELL DISTRIBUTION WIDTH 14.8 % (11.5-14.5); WHITE BLOOD COUNT 11.4 x10^3/uL (4.0-11.0)
[2017-06-15 07:26] LABS: CALCIUM 9.2 mg/dL (8.5-10.1); CREATININE 0.9 mg/dL (0.6-1.0); GFR 76.3; POTASSIUM 3.3 mmol/L (3.5-5.1)
[2017-06-15 07:32] VITALS: BP 116/64
[2017-06-15] MEDS ORDERED: [UNRECOGNIZED DRUG - OTHER] PO PRN (08:15)
[2017-06-15] MEDS ORDERED: ACETAMINOPHEN 325 MG TABLET. PO PRN (08:30)
[2017-06-15] MEDS ORDERED: POTASSIUM CHLORIDE 20MEQ 50 ML IV SCH (08:45)
[2017-06-15] MEDS ORDERED: NON FORMULARY ITEM (Biotin 5,000 MCG) PO SCH (09:00)
[2017-06-15] MEDS ORDERED: NON FORMULARY ITEM (Multivits-Min/Fa/Lycopene/Lut (Centrum Silver Tablet) 1 EACH) PO SCH (09:00)
[2017-06-15] MEDS ORDERED: NON FORMULARY ITEM (Cod Liver Oil 1 EACH) PO SCH (09:00)
[2017-06-15] MEDS: MULTIVITAMIN with MINERAL TABLET. PO SCH (09:26)
[2017-06-15] MEDS: PANTOPRAZOLE 40 MG TABLET.DR. PO SCH (09:26)
[2017-06-15] MEDS: CHOLECALCIFEROL (VITAMIN D3) 1,000 UNIT TABLET PO SCH (09:27)
[2017-06-15] MEDS: LISINOPRIL 20 MG TABLET PO SCH (09:27)
[2017-06-15] MEDS: GABAPENTIN 300 MG CAPSULE. PO SCH ×2 (09:27→20:40)
[2017-06-15] MEDS: ASCORBIC ACID 500 MG TABLET PO SCH (09:28)
[2017-06-15] MEDS: FOLIC ACID 1 MG TABLET. PO SCH (09:28)
[2017-06-15] MEDS: FAMOTIDINE 20 MG/2 ML VIAL IVP SCH (09:28)
[2017-06-15] MEDS: hydroCHLOROthiazide 25 MG TABLET PO SCH (09:28)
[2017-06-15] MEDS: VITAMIN E 200 UNIT CAPSULE. PO SCH (09:35)
[2017-06-15] MEDS: POTASSIUM CHLORIDE 10MEQ 100 ML IV SCH ×4 (09:36→13:38)
[2017-06-15] MEDS ORDERED: IV NORMAL SALINE 1000ML BAG 1,000 ML IV SCH (10:15)
--- NOTE | 2017-06-15 10:41 | PDOC ---
Objective: Objective: Tmax 100.4, some tachycardia Vital Signs: Vital Signs Date Time Temp Pulse Resp B/P (MAP) Pulse Ox O2 Delivery O2 Flow Rate FiO2 06/15/17 09:27 78 116/64 06/15/17 08:00 Room Air 06/15/17 07:32 99.0 18 95 99.0 Labs: Laboratory Tests Test 06/15/17 06:50 White Blood Count 11.4 x10^3/uL Red Blood Count 3.47 x10^6/uL Hemoglobin 11.5 g/dL Hematocrit 34.4 % Mean Corpuscular Volume 99 fL Mean Corpuscular Hemoglobin 33 pg Mean Corpuscular Hemoglobin Concent 34 g/dL Red Cell Distribution Width 14.8 % Platelet Count 220 x10^3/uL Neutrophils (%) (Auto) 76 % Lymphocytes (%) (Auto) 9 % Monocytes (%) (Auto) 15 % Eosinophils (%) (Auto) 0 % Basophils (%) (Auto) 0 % Neutrophils # (Auto) 8.7 x10^3uL Lymphocytes # (Auto) 1.0 x10^3/uL Monocytes # (Auto) 1.7 x10^3/uL Eosinophils # (Auto) 0.0 x10^3/uL Basophils # (Auto) 0.0 x10^3/uL Sodium Level 126 mmol/L Potassium Level 3.3 mmol/L Chloride Level 91 mmol/L Carbon Dioxide Level 27 mmol/L Anion Gap 8 Blood Urea Nitrogen 14 mg/dL Creatinine 0.9 mg/dL Estimated GFR (Cockcroft-Gault) 76.3 Glucose Level 81 mg/dL Calcium Level 9.2 mg/dL Lipase 377 U/L PE: GEN: NAD HEENT: Atraumatic, PERRLA LUNGS: CTAB HEART: RRR, no murmurs ABD: NABS, S/ND/NT, no masses EXTREMITY: No edema SKIN: No rashes, no jaundice NEURO/PSYCH: A & O 3 A/P: Abd pain, nausea - resolved Pancreatitis (lipase now WNL) -some leukocytosis, mild fever, tachycardia GERD, h/o requiring laparotomy -on PPI QD -- ADAT. Stop IV H2 jason. Continue PPI. Hyponatremia per primary. GLORIA KOHLI Jun 15, 2017 10:40
[2017-06-15 10:47] VITALS: BP 117/64
--- NOTE | 2017-06-15 11:46 | PDOC ---
PROGRESS NOTES Chief Complaint Chief Complaint Abdominal pain Pancreatitis PMH: Alcoholism Anemia HTN GERD PUD Neuropathy History of Present Illness History of Present Illness Pt seen at bedside. She appears well and is in no acute distress. She continues to improve. Lipase down to 377. Fever overnight at 104 down to 99 this AM. Will continue to monitor. Will continue to advance diet as tolerated. She reports that her abd pain is improving. No nausea or vomiting at this time. No acute complaints. Will continue to monitor for now. Appreciate subspecialty input. CT abdomen - abnormal pancreas with new cyst located in the pancreatic tail Vitals Vitals Vital Signs Date Time Temp Pulse Resp B/P (MAP) Pulse Ox O2 Delivery O2 Flow Rate FiO2 06/15/17 10:47 98.5 68 18 117/64 (81) 94 Room Air 98.5 Physical Exam General: Alert, Oriented X3, Cooperative, No acute distress Heart: Regular rate, Normal S1, Normal S2 Lungs: Clear Abdomen: Normal bowel sounds, No masses, Other (mild epigastric TTP) Extremities: No clubbing, No cyanosis, Normal pulses Skin: No rashes, No breakdown Labs LABS Laboratory Tests Test 06/15/17 06:50 White Blood Count 11.4 x10^3/uL (4.0-11.0) Red Blood Count 3.47 x10^6/uL (3.50-5.40) Hemoglobin 11.5 g/dL (12.0-15.5) Hematocrit 34.4 % (36.0-47.0) Mean Corpuscular Volume 99 fL (79-100) Mean Corpuscular Hemoglobin 33 pg (25-35) Mean Corpuscular Hemoglobin Concent 34 g/dL (31-37) Red Cell Distribution Width 14.8 % (11.5-14.5) Platelet Count 220 x10^3/uL (140-400) Neutrophils (%) (Auto) 76 % (31-73) Lymphocytes (%) (Auto) 9 % (24-48) Monocytes (%) (Auto) 15 % (0-9) Eosinophils (%) (Auto) 0 % (0-3) Basophils (%) (Auto) 0 % (0-3) Neutrophils # (Auto) 8.7 x10^3uL (1.8-7.7) Lymphocytes # (Auto) 1.0 x10^3/uL (1.0-4.8) Monocytes # (Auto) 1.7 x10^3/uL (0.0-1.1) Eosinophils # (Auto) 0.0 x10^3/uL (0.0-0.7) Basophils # (Auto) 0.0 x10^3/uL (0.0-0.2) Sodium Level 126 mmol/L (136-145) Potassium Level 3.3 mmol/L (3.5-5.1) Chloride Level 91 mmol/L (98-107) Carbon Dioxide Level 27 mmol/L (21-32) Anion Gap 8 (6-14) Blood Urea Nitrogen 14 mg/dL (7-20) Creatinine 0.9 mg/dL (0.6-1.0) Estimated GFR (Cockcroft-Gault) 76.3 Glucose Level 81 mg/dL (70-99) Calcium Level 9.2 mg/dL (8.5-10.1) Lipase 377 U/L (73-393) Review of Systems Review of Systems Gen: + fevers, + chills, + fatigue CV: No CP or palpitations Resp: No SOB or wheezing GI: + mild epigastric pain, No N/V/D Assessment and Plan Assessmemt and Plan Problems Medical Problems: (1) Acute pancreatitis Status: Acute Assessment: Pancreatitis EtOH abuse Hyponatremia Hypokalemia HTN GERD PUD Neuropathy Plan: Ordered NS @ 75 cc/hr IV Potassium Advancing diet at tolerating recheck labs reviewed imaging prn pain control PT/OT GI following Probable d/c to home tomorrow if afebrile and cleared by subspecialty Problems: Comment Review of Relevant I have reviewed the following items patrizia (where applicable) has been applied. Labs Laboratory Tests Test 06/14/17 09:23 06/15/17 06:50 White Blood Count 10.8 x10^3/uL (4.0-11.0) 11.4 x10^3/uL (4.0-11.0) Red Blood Count 4.08 x10^6/uL (3.50-5.40) 3.47 x10^6/uL (3.50-5.40) Hemoglobin 13.8 g/dL (12.0-15.5) 11.5 g/dL (12.0-15.5) Hematocrit 40.3 % (36.0-47.0) 34.4 % (36.0-47.0) Mean Corpuscular Volume 99 fL (79-100) 99 fL (79-100) Mean Corpuscular Hemoglobin 34 pg (25-35) 33 pg (25-35) Mean Corpuscular Hemoglobin Concent 34 g/dL (31-37) 34 g/dL (31-37) Red Cell Distribution Width 15.0 % (11.5-14.5) 14.8 % (11.5-14.5) Platelet Count 322 x10^3/uL (140-400) 220 x10^3/uL (140-400) Neutrophils (%) (Auto) 81 % (31-73) 76 % (31-73) Lymphocytes (%) (Auto) 6 % (24-48) 9 % (24-48) Monocytes (%) (Auto) 13 % (0-9) 15 % (0-9) Eosinophils (%) (Auto) 0 % (0-3) 0 % (0-3) Basophils (%) (Auto) 0 % (0-3) 0 % (0-3) Neutrophils # (Auto) 8.8 x10^3uL (1.8-7.7) 8.7 x10^3uL (1.8-7.7) Lymphocytes # (Auto) 0.6 x10^3/uL (1.0-4.8) 1.0 x10^3/uL (1.0-4.8) Monocytes # (Auto) 1.4 x10^3/uL (0.0-1.1) 1.7 x10^3/uL (0.0-1.1) Eosinophils # (Auto) 0.0 x10^3/uL (0.0-0.7) 0.0 x10^3/uL (0.0-0.7) Basophils # (Auto) 0.0 x10^3/uL (0.0-0.2) 0.0 x10^3/uL (0.0-0.2) Sodium Level 126 mmol/L (136-145) 126 mmol/L (136-145) Potassium Level 3.4 mmol/L (3.5-5.1) 3.3 mmol/L (3.5-5.1) Chloride Level 88 mmol/L (98-107) 91 mmol/L (98-107) Carbon Dioxide Level 29 mmol/L (21-32) 27 mmol/L (21-32) Anion Gap 9 (6-14) 8 (6-14) Blood Urea Nitrogen 11 mg/dL (7-20) 14 mg/dL (7-20) Creatinine 1.1 mg/dL (0.6-1.0) 0.9 mg/dL (0.6-1.0) Estimated GFR (Cockcroft-Gault) 60.5 76.3 BUN/Creatinine Ratio 10 (6-20) Glucose Level 110 mg/dL (70-99) 81 mg/dL (70-99) Calcium Level 9.1 mg/dL (8.5-10.1) 9.2 mg/dL (8.5-10.1) Total Bilirubin 0.7 mg/dL (0.2-1.0) Aspartate Amino Transf (AST/SGOT) 17 U/L (15-37) Alanine Aminotransferase (ALT/SGPT) 22 U/L (14-59) Alkaline Phosphatase 138 U/L (46-116) Total Protein 7.4 g/dL (6.4-8.2) Albumin 3.5 g/dL (3.4-5.0) Albumin/Globulin Ratio 0.9 (1.0-1.7) Lipase 1331 U/L (73-393) 377 U/L (73-393) Laboratory Tests Test 06/15/17 06:50 White Blood Count 11.4 x10^3/uL (4.0-11.0) Red Blood Count 3.47 x10^6/uL (3.50-5.40) Hemoglobin 11.5 g/dL (12.0-15.5) Hematocrit 34.4 % (36.0-47.0) Mean Corpuscular Volume 99 fL (79-100) Mean Corpuscular Hemoglobin 33 pg (25-35) Mean Corpuscular Hemoglobin Concent 34 g/dL (31-37) Red Cell Distribution Width 14.8 % (11.5-14.5) Platelet Count 220 x10^3/uL (140-400) Neutrophils (%) (Auto) 76 % (31-73) Lymphocytes (%) (Auto) 9 % (24-48) Monocytes (%) (Auto) 15 % (0-9) Eosinophils (%) (Auto) 0 % (0-3) Basophils (%) (Auto) 0 % (0-3) Neutrophils # (Auto) 8.7 x10^3uL (1.8-7.7) Lymphocytes # (Auto) 1.0 x10^3/uL (1.0-4.8) Monocytes # (Auto) 1.7 x10^3/uL (0.0-1.1) Eosinophils # (Auto) 0.0 x10^3/uL (0.0-0.7) Basophils # (Auto) 0.0 x10^3/uL (0.0-0.2) Sodium Level 126 mmol/L (136-145) Potassium Level 3.3 mmol/L (3.5-5.1) Chloride Level 91 mmol/L (98-107) Carbon Dioxide Level 27 mmol/L (21-32) Anion Gap 8 (6-14) Blood Urea Nitrogen 14 mg/dL (7-20) Creatinine 0.9 mg/dL (0.6-1.0) Estimated GFR (Cockcroft-Gault) 76.3 Glucose Level 81 mg/dL (70-99) Calcium Level 9.2 mg/dL (8.5-10.1) Lipase 377 U/L (73-393) Medications Current Medications Fentanyl Citrate (Fentanyl 2ml Vial) 50 mcg PRN Q15MIN PRN IV PAIN GREATER THAN 3/10 Last administered on 06/13/17 09:26; Start 06/13/17 at 06:45; Stop 06/14/17 at 06:44; Status DC Sodium Chloride 1,000 ml @ 1,000 mls/hr Q1H IV Last administered on 06/13/17 07:05; Start 06/13/17 at 06:44; Stop 06/13/17 at 07:43; Status DC Ondansetron HCl (Zofran) 4 mg 1X ONCE IV Last administered on 06/13/17 07:05 ; Start 06/13/17 at 06:45; Stop 06/13/17 at 06:48; Status DC Iohexol (Omnipaque 300 Mg/ml) 75 ml 1X ONCE IV Last administered on 06/13/17 07:53; Start 06/13/17 at 07:45; Stop 06/13/17 at 07:47; Status DC Info (Do NOT chart on this entry -- for MONITORING) 1 each PRN DAILY PRN MC SEE COMMENTS; Start 06/13/17 at 08:00; Stop 06/15/17 at 07:59; Status DC Ondansetron HCl (Zofran) 4 mg PRN Q8HRS PRN IV NAUSEA/VOMITING Last administered on 06/13/17 10:26; Start 06/13/17 at 08:30; Stop 06/14/17 at 08:29 ; Status DC Fentanyl Citrate (Fentanyl 2ml Vial) 50 mcg PRN Q2HR PRN IV PAIN Last administered on 06/13/17 15:23; Start 06/13/17 at 08:30; Stop 06/14/17 at 08:29 ; Status DC Sodium Chloride 1,000 ml @ 125 mls/hr Q8H IV Last administered on 06/14/17 14 :16; Start 06/13/17 at 08:16; Stop 06/14/17 at 08:15; Status DC Clonidine HCl (Catapres) 0.3 mg 1X STAT PO Last administered on 06/13/17 10: 22; Start 06/13/17 at 10:03; Stop 06/13/17 at 10:04; Status DC Clonidine HCl (Catapres) 0.2 mg PRN Q4HRS PRN PO ELEVATED BP, SEE COMMENTS Last administered on 06/14/17 20:20; Start 06/13/17 at 10:00 Famotidine (Pepcid) 20 mg BID IVP Last administered on 06/15/17 09:28; Start 06/13/17 at 12:30; Stop 06/15/17 at 10:40; Status DC Ascorbic Acid (Vitamin C) 500 mg DAILY PO Last administered on 06/15/17 09:28 ; Start 06/15/17 at 09:00 Folic Acid (Folic Acid) 1 mg DAILY PO Last administered on 06/15/17 09:28; Start 06/15/17 at 09:00 Gabapentin (Neurontin) 300 mg BID PO Last administered on 06/15/17 09:27; Start 06/15/17 at 09:00 Non-Formulary Medication 5,000 mcg DAILY PO ; Start 06/15/17 at 09:00; Status UNV Non-Formulary Medication 40 mg PRN PRN PO SHIVERING; Start 06/15/17 at 08:15; Status UNV Vitamin D (Vitamin D3) 500 unit DAILY PO Last administered on 06/15/17 09:27; Start 06/15/17 at 09:00 Non-Formulary Medication 1 each DAILY PO ; Start 06/15/17 at 09:00; Status UNV Lisinopril (Prinivil) 20 mg DAILY PO Last administered on 06/15/17 09:27; Start 06/15/17 at 09:00 Multivitamins (Thera M Plus) 1 tab DAILY PO Last administered on 06/15/17 09: 26; Start 06/15/17 at 09:00 Non-Formulary Medication 1 each DAILY PO ; Start 06/15/17 at 09:00; Status UNV Pantoprazole Sodium (Protonix) 40 mg DAILYAC PO Last administered on 06/15/17 09:26; Start 06/15/17 at 09:00 Vitamin E 400 unit DAILY PO Last administered on 06/15/17 09:35; Start at 09:00 Hydrochlorothiazide (Hydrodiuril) 25 mg DAILY PO Last administered on 09:28; Start 06/15/17 at 09:00 Acetaminophen (Tylenol) 650 mg PRN Q6HRS PRN PO FEVER Last administered on 06/15 09:26; Start 06/15/17 at 08:30 Potassium Chloride 50 ml @ 50 mls/hr Q1H IV ; Start 06/15/17 at 08:45; Stop 06/15/17 at 10:44; Status UNV Potassium Chloride 100 ml @ 100 mls/hr Q1H IV Last administered on 06/15/17 11:11; Start 06/15/17 at 09:00; Stop 06/15/17 at 12:59 Sodium Chloride 1,000 ml @ 125 mls/hr Q8H IV Last administered on 06/15/17 10 :15; Start 06/15/17 at 10:15 Active Scripts Active Omeprazole 40 Mg Capsule.dr 1 Cap PO DAILY Reported Cod Liver Oil 1 Each Capsule 1 Each PO DAILY Biotin 5,000 Mcg Tab.rapdis 5,000 Mcg PO DAILY Black Cohosh Extract (Black Cohosh Root Extract) 80 Mg Capsule 40 Mg PO PRN PRN Centrum Silver Tablet (Multivits-Min/Fa/Lycopene/Lut) 1 Each Tablet 1 Each PO DAILY Vitamin B-12 5,000 Mcg Tab Sl (Cyanocobalamin/Cobamamide) 1 Each Tab.subl 1 Each SL Multivitamins (Multivitamin) 1 Each Tablet 1 Tab PO DAILY Lisinopril-Hctz 20-25 Mg Tab (Lisinopril/Hydrochlorothiazide) 1 Each Tablet 1 Tab PO DAILY Vitamin E (Vitamin E Mixed) 400 Unit Capsule 400 Unit PO DAILY Vitamin C (Ascorbic Acid) 500 Mg Tablet 500 Mg PO DAILY Vitamin D3 (Cholecalciferol (Vitamin D3)) 400 Unit Tablet 400 Unit PO DAILY Folic Acid 1 Mg Tablet 1 Tab PO DAILY Gabapentin 100 Mg Capsule 300 Mg PO BID Vitals/I & O Vital Sign - Last 24 Hours 06/14/17 06/14/17 06/14/17 06/14/17 14:41 19:41 20:00 20:20 Temp 98.9 100.4 98.9 100.4 Pulse 77 78 78 Resp 20 18 B/P (MAP) 129/90 (103) 163/85 (111) 163/85 Pulse Ox 94 94 O2 Delivery Room Air Room Air Room Air 06/14/17 06/15/17 06/15/17 06/15/17 23:07 03:26 07:32 08:00 Temp 99.8 99.9 99.0 99.8 99.9 99.0 Pulse 85 94 78 Resp 18 18 18 B/P (MAP) 125/68 (87) 127/67 (87) 116/64 (81) Pulse Ox 94 94 95 O2 Delivery Room Air Room Air Room Air Room Air 06/15/17 06/15/17 09:27 10:47 Temp 98.5 98.5 Pulse 78 68 Resp 18 B/P (MAP) 116/64 117/64 (81) Pulse Ox 94 O2 Delivery Room Air IRMA UPTON III DO Jun 15, 2017 11:46
[2017-06-15] MEDS: IV NORMAL SALINE 1000ML BAG 1,000 ML IV SCH (13:38)
[2017-06-15 14:35] VITALS: BP 135/71
[2017-06-15 19:49] VITALS: BP 119/65
[2017-06-15 23:27] VITALS: BP 138/69
[2017-06-16] MEDS: IV NORMAL SALINE 1000ML BAG 1,000 ML IV SCH (01:20)
[2017-06-16 03:31] VITALS: BP 108/61
[2017-06-16 07:05] VITALS: BP 146/90
[2017-06-16] MEDS: GABAPENTIN 300 MG CAPSULE. PO SCH ×2 (08:18→20:09)
[2017-06-16] MEDS: hydroCHLOROthiazide 25 MG TABLET PO SCH (08:18)
[2017-06-16] MEDS: PANTOPRAZOLE 40 MG TABLET.DR. PO SCH (08:19)
[2017-06-16] MEDS: ASCORBIC ACID 500 MG TABLET PO SCH (08:19)
[2017-06-16] MEDS: CHOLECALCIFEROL (VITAMIN D3) 1,000 UNIT TABLET PO SCH (08:19)
[2017-06-16] MEDS: LISINOPRIL 20 MG TABLET PO SCH (08:20)
[2017-06-16] MEDS: VITAMIN E 200 UNIT CAPSULE. PO SCH (08:20)
[2017-06-16] MEDS: FOLIC ACID 1 MG TABLET. PO SCH (08:20)
[2017-06-16] MEDS: MULTIVITAMIN with MINERAL TABLET. PO SCH (08:20)
--- NOTE | 2017-06-16 09:07 | PDOC ---
PROGRESS NOTES Chief Complaint Chief Complaint Abdominal pain Pancreatitis ASSESSMENT AND PLAN: 1. Pancreatitis: resolved by sx and labs. 2. Hyponatremia: worsening with NS IVF. suspect med ASE vs SIADH. stop HCTZ , fluid restriction, urine lytes 3. Hypokalemia: replete orally. check Mg 4. Alcoholism: no signs of W/D 5. GERD?PUD: on PPI 6. Anemia: mild, macrocytic; 2/2 EtOH. check B12 7. HTN: well controlled on current regimen 8. Neuropathy: on gabapentin History of Present Illness History of Present Illness feels fine, eager to go home. denies Abd pain, nausea, tremors, agitation Vitals Vitals Vital Signs Date Time Temp Pulse Resp B/P (MAP) Pulse Ox O2 Delivery O2 Flow Rate FiO2 06/16/17 08:22 Room Air 06/16/17 08:20 71 146/90 06/16/17 07:05 98.4 18 96 98.4 Physical Exam General: Alert, Oriented X3, Cooperative, No acute distress Heart: Regular rate Lungs: Clear Abdomen: Normal bowel sounds, Soft, No tenderness Extremities: No clubbing, No edema Skin: No rashes JUAN ADORNO MD Jun 16, 2017 09:07
[2017-06-16 10:16] LABS: BASO % 1 % (0-3); EOS % 0 % (0-3); HEMATOCRIT 34.6 % (36.0-47.0); HEMOGLOBIN 11.5 g/dL (12.0-15.5); LYMPH # 0.7 x10^3/uL (1.0-4.8); LYMPH % 8 % (24-48); MEAN CORPUSCULAR HEMOGLOBIN 33 pg (25-35); MEAN CORPUSCULAR HGB CONC 33 g/dL (31-37); MEAN CORPUSCULAR VOLUME 100 fL (79-100); MONO % 15 % (0-9); NEUT % 77 % (31-73); PLATELET COUNT 241 x10^3/uL (140-400); RED BLOOD COUNT 3.47 x10^6/uL (3.50-5.40); RED CELL DISTRIBUTION WIDTH 14.4 % (11.5-14.5); WHITE BLOOD COUNT 9.4 x10^3/uL (4.0-11.0)
[2017-06-16 10:32] VITALS: BP 132/73
[2017-06-16 10:35] LABS: CALCIUM 8.8 mg/dL (8.5-10.1); GFR 67.5; POTASSIUM 3.1 mmol/L (3.5-5.1)
--- NOTE | 2017-06-16 10:46 | PDOC ---
Subjective: Subjective: Feeling much better. No issues w/ eating. Denies abd pain. Objective: Objective: Tmax 99.9 Vital Signs: Vital Signs Date Time Temp Pulse Resp B/P (MAP) Pulse Ox O2 Delivery O2 Flow Rate FiO2 06/16/17 10:32 98.2 57 18 132/73 (92) 100 Room Air 98.2 Labs: Laboratory Tests Test 06/16/17 10:05 White Blood Count 9.4 x10^3/uL Red Blood Count 3.47 x10^6/uL Hemoglobin 11.5 g/dL Hematocrit 34.6 % Mean Corpuscular Volume 100 fL Mean Corpuscular Hemoglobin 33 pg Mean Corpuscular Hemoglobin Concent 33 g/dL Red Cell Distribution Width 14.4 % Platelet Count 241 x10^3/uL Neutrophils (%) (Auto) 77 % Lymphocytes (%) (Auto) 8 % Monocytes (%) (Auto) 15 % Eosinophils (%) (Auto) 0 % Basophils (%) (Auto) 1 % Neutrophils # (Auto) 7.2 x10^3uL Lymphocytes # (Auto) 0.7 x10^3/uL Monocytes # (Auto) 1.4 x10^3/uL Eosinophils # (Auto) 0.0 x10^3/uL Basophils # (Auto) 0.0 x10^3/uL Sodium Level 124 mmol/L Potassium Level 3.1 mmol/L Chloride Level 90 mmol/L Carbon Dioxide Level 28 mmol/L Anion Gap 6 Blood Urea Nitrogen 14 mg/dL Creatinine 1.0 mg/dL Estimated GFR (Cockcroft-Gault) 67.5 Glucose Level 151 mg/dL Calcium Level 8.8 mg/dL PE: GEN: NAD LUNGS: clear HEART: RRR ABD: S/ND/NT NEURO/PSYCH: A & O 3 A/P: Abd pain, nausea - resolved Pancreatitis (lipase now WNL) GERD, h/o requiring laparotomy -on PPI QD Leukocytosis (resolved), hyponatremia (persists), hypokalemia -per primary -- GI-mclaughlin is improved. Continue PPI, avoid alcohol. TSH pending. GLORIA KOHLI Jun 16, 2017 10:46
[2017-06-16 11:20] LABS: ALBUMIN 2.6 g/dL (3.4-5.0); ALBUMIN/GLOBULIN RATIO 0.6 (1.0-1.7); CALCIUM 8.9 mg/dL (8.5-10.1); GFR 67.5; MAGNESIUM 1.4 mg/dL (1.8-2.4); POTASSIUM 3.1 mmol/L (3.5-5.1); TOTAL BILIRUBIN 0.4 mg/dL (0.2-1.0); TOTAL PROTEIN 6.7 g/dL (6.4-8.2)
[2017-06-16 11:28] LABS: VITAMIN-B12 1759 pg/mL (247-911)
[2017-06-16] MEDS ORDERED: POTASSIUM CHLORIDE 20 MEQ TABLET.ER. PO ONE (11:30)
[2017-06-16 11:34] LABS: FOLATE > 24.00 ng/ml (3.2-20.0)
[2017-06-16 14:49] VITALS: BP 142/66
[2017-06-16] MEDS: POLYETHYLENE GLYCOL 3350 17 GM PACKET. PO SCH (17:30)
[2017-06-16 19:00] VITALS: BP 166/79
[2017-06-16 23:05] VITALS: BP 164/68
[2017-06-17 03:05] VITALS: BP 144/71
[2017-06-17 06:38] LABS: BASO % 0 % (0-3); EOS % 1 % (0-3); HEMATOCRIT 33.7 % (36.0-47.0); HEMOGLOBIN 11.4 g/dL (12.0-15.5); LYMPH # 0.8 x10^3/uL (1.0-4.8); LYMPH % 10 % (24-48); MEAN CORPUSCULAR HEMOGLOBIN 33 pg (25-35); MEAN CORPUSCULAR HGB CONC 34 g/dL (31-37); MEAN CORPUSCULAR VOLUME 98 fL (79-100); MONO % 20 % (0-9); NEUT % 68 % (31-73); PLATELET COUNT 257 x10^3/uL (140-400); RED BLOOD COUNT 3.43 x10^6/uL (3.50-5.40); RED CELL DISTRIBUTION WIDTH 14.6 % (11.5-14.5); WHITE BLOOD COUNT 7.8 x10^3/uL (4.0-11.0)
[2017-06-17 07:00] VITALS: BP 153/80
[2017-06-17 07:51] LABS: CALCIUM 9.4 mg/dL (8.5-10.1); CREATININE 0.8 mg/dL (0.6-1.0); GFR 87.4; POTASSIUM 3.8 mmol/L (3.5-5.1)
[2017-06-17] MEDS: GABAPENTIN 300 MG CAPSULE. PO SCH (09:07)
[2017-06-17] MEDS: PANTOPRAZOLE 40 MG TABLET.DR. PO SCH (09:07)
[2017-06-17] MEDS: ASCORBIC ACID 500 MG TABLET PO SCH (09:09)
[2017-06-17] MEDS: LISINOPRIL 20 MG TABLET PO SCH (09:09)
[2017-06-17] MEDS: POLYETHYLENE GLYCOL 3350 17 GM PACKET. PO SCH (09:09)
[2017-06-17] MEDS: VITAMIN E 200 UNIT CAPSULE. PO SCH (09:09)
[2017-06-17] MEDS: MULTIVITAMIN with MINERAL TABLET. PO SCH (09:09)
[2017-06-17] MEDS: FOLIC ACID 1 MG TABLET. PO SCH (09:09)
[2017-06-17] MEDS: CHOLECALCIFEROL (VITAMIN D3) 1,000 UNIT TABLET PO SCH (09:17)
[2017-06-17 10:14] LABS: % EOS 2 % (0-5); PLT ESTIMATE ADEQUATE (ADEQUATE)
[2017-06-17 10:48] VITALS: BP 144/75
[2017-06-17] MEDS ORDERED: LISI-334 PO (12:08)
[2017-06-17 21:09] LABS: SODIUM, URINE <60 mmol/L (Not Estab.)
--- NOTE | 2017-06-19 16:19 | DS ---
DATE OF DISCHARGE: 06/17/2017 CHIEF COMPLAINT: Pancreatitis. HOSPITAL COURSE: The patient is a 66-year-old woman with alcoholism who presented with mid abdominal pain, which was diagnosed as pancreatitis by labs and x-rays. She was admitted to the hospital with bowel rest. With improvement in her symptoms, p.o. intake was initiated with clear fluids and advanced as tolerated. The patient actually recovered very quickly. Holding up her discharge was severe hyponatremia, which actually worsened during hospitalization. Her hydrochlorothiazide was held with improvement of her numbers. She was therefore discharged to home with advice to follow up with PCP for lab work LEON. PHYSICAL EXAMINATION: VITAL SIGNS: Show blood pressure of 144/75, heart rate of 89, respiratory rate at 18. She is afebrile. GENERAL: This is a well-nourished 66-year-old woman, alert and oriented, no acute distress. LUNGS: Clear. HEART: Regular rate and rhythm. ABDOMEN: Has positive bowel sounds, soft, nontender. EXTREMITIES: Show no edema. DISCHARGE DATE: 06/17/2017. DISCHARGE DIAGNOSES: Pancreatitis, hypokalemia. DISCHARGE DISPOSITION: To home. DISCHARGE CONDITION: Improved. DISCHARGE MEDICATIONS: Please refer to MAR. DISCHARGE INSTRUCTIONS: The patient will follow up with PCP in 1 week for lab draw. JUAN ADORNO MD DR: SOHEILA/nts JOB#: [id number] / [id number] JENARO Singletary
== END 2017-06-17 12:30 | disposition home or self-care (01) | DRG 304 ==
LOC: ER 06:32 → 6 SOUTH 08:10
PROVIDERS: ADMIT Internal Medicine; ATTEND Internal Medicine
DX: I16.1 Hypertensive emergency (principal); K85.20 Alcohol induced acute pancreatitis without necrosis or infection; E87.1 Hypo-osmolality and hyponatremia; G62.9 Polyneuropathy, unspecified; K86.0 Alcohol-induced chronic pancreatitis; F10.288 Alcohol dependence with other alcohol-induced disorder; K27.9 Peptic ulcer, site unspecified, unspecified as acute or chronic, without hemorrhage or perforation; I10 Essential (primary) hypertension; D64.9 Anemia, unspecified; E87.6 Hypokalemia; F17.210 Nicotine dependence, cigarettes, uncomplicated; K21.9 Gastro-esophageal reflux disease without esophagitis; K43.9 Ventral hernia without obstruction or gangrene; M10.9 Gout, unspecified; Z80.6 Family history of leukemia; Z82.3 Family history of stroke; Z82.49 Family history of ischemic heart disease and other diseases of the circulatory system; Z83.3 Family history of diabetes mellitus; Z87.11 Personal history of peptic ulcer disease; Z90.710 Acquired absence of both cervix and uterus; Z88.8 Allergy status to other drugs, medicaments and biological substances; R07.89 Other chest pain
CPT/HCPCS: 36415; 74177; 80048; 80053; 80307; 81001; 82436; 82607; 82746; 83690; 83735; 84133; 84300; 84443; 85007; 85025; 96361; 96374; 96375; 96376; J2405; J3010; J3480; J7030; Q9967; S0028; 97116; 97535; 99285-25; G0479

== ENCOUNTER 2017-07-03 11:36 | Inpatient (IN) | payer OTHER ==
[~2017-07-03] VITALS: Ht 162.6 cm; Wt 69.5 kg
[~2017-07-03 11:36] MED LIST changes: +BIOT5000 PO; +BLAC80CA PO; +COD1CAPS2 PO; +CYAN1TAB50 SL; +LISI-334 PO; +LISI1TAB7 PO; +MULT-658 PO; +MULT1TAB52 PO
[2017-07-03] MEDS ORDERED: IV NORMAL SALINE 1000ML BAG 1,000 ML IV SCH (11:56)
[2017-07-03] MEDS ORDERED: 0.9 % SODIUM CHLORIDE 10 ML DISP.SYRIN. IV PRN (12:00)
[2017-07-03] MEDS ORDERED: ONDANSETRON PF 4 MG/2 ML VIAL. IV ONE (12:00)
[2017-07-03] MEDS ORDERED: HYDROmorphone 2 MG/ML VIAL IV/SQ PRN (12:00)
--- NOTE | 2017-07-03 12:07 | PHYS DOC ---
Past Medical History Past Medical History: Anemia, GERD, Hypertension, Unknown Additional Past Medical Histor: ULCERS, NEUROPATHY Past Surgical History: Hysterectomy Additional Past Surgical Histo: LAP Smoking: Cigarettes, Greater than 1 pack/day Alcohol Use: Occasionally Drug Use: None Adult General Chief Complaint Chief Complaint: ABDOMINAL PAIN HPI HPI This patient is a pleasant 66-year-old female with a known history of hypertension and prior history of pancreatitis secondary to alcohol consumption presents with chest pain and abdominal pain that began yesterday. Patient was at rest watching Rogelio again having chest pain of her left breast. There is described as dull and achy with radiation to the back. It is not radiating to the shoulder or arm or neck. She described lasting for about 15 -20 minutes while at rest and it did return ever so slightly with exertion across the room when she walked. Patient denies any shortness of breath or cough , URI symptoms or fevers. Does admit she's had nausea without vomiting only retching. She also has had one episode of loose stool yesterday. She believes she was exposed to her grandchildren who had similar symptoms yesterday and she is coming down with the same symptoms. She admits she's never had chest pain like this in the past. sHe admits she actually had a fall where she accidentally landed on a toy on her chest wall and the left chest wall where she is complaining of discomfort with this chest pain he experiences new. She denies any lightheaded dizziness with this chest pain. Denies any recent change in medications, travel outside the country, or changes in pain with chest wall movement or arm movement. Patient also complains of abdominal pain that began yesterday as well in the epigastric region she is worried she is having another episode of pancreatitis. She admits that she's been in trying to abstain from alcohol for the last 3 weeks since her last pancreatic attack but admits she's been cheating. She has had some nausea without vomiting no diarrhea or loose stools save one episode today. She denies any dark tarry stools or melena she has grandchildren with similar symptoms and she believes this with their calls from. Review of Systems Review of Systems Constitutional: Denies fever or chills [] Eyes: Denies change in visual acuity, redness, or eye pain [] HENT: Denies nasal congestion or sore throat [] Respiratory: Denies cough or shortness of breath [] Cardiovascular: No additional information not addressed in HPI [] GI: She does live abdominal pain with nausea and diarrhea and retching without vomiting or bloody stools : Denies dysuria or hematuria [] Musculoskeletal: Denies back pain or joint pain [] Integument: Denies rash or skin lesions [] Neurologic: Denies headache, focal weakness or sensory changes [] Endocrine: Denies polyuria or polydipsia [] Current Medications Current Medications Current Medications Medications (Trade) Dose Ordered Sig/Suhas Start Time Stop Time Status Last Admin Dose Admin Acetaminophen (Tylenol) 650 mg PRN Q4HRS PRN 07/03/17 14:45 07/04/17 14:44 Fentanyl Citrate (Fentanyl 2ml Vial) 50 mcg PRN Q1HR PRN 07/03/17 14:45 07/04/17 14:44 Hydromorphone HCl (Dilaudid) 1 mg PRN Q15MIN PRN 07/03/17 12:00 07/04/17 11:59 07/03/17 12:29 1 MG Ondansetron HCl (Zofran) 4 mg PRN Q8HRS PRN 07/03/17 14:45 07/04/17 14:44 Sodium Chloride 1,000 ml @ 1,435 mls/hr Q42M 07/03/17 15:00 07/03/17 16:00 Sodium Chloride (Normal Saline Flush) 10 ml QSHIFT PRN 07/03/17 12:00 Allergies Allergies Allergies Coded Allergies Type Severity Reaction Last Updated Verified No Known Medication Allergies Allergy Unknown 07/03/17 Yes aspirin Adverse Reaction Intermediate HX OF PERFORATED ULCERS 07/03/17 Yes Physical Exam Physical Exam Vital signs recorded on the chart they're within normal limits Constitutional: Well developed, well nourished, patient obviously uncomfortable but nontoxic in appearance HENT: Normocephalic, atraumatic, bilateral external ears normal, mucous membranes are dry, no oral exudates, nose normal. [] Eyes: PERRLA, EOMI, conjunctiva normal, no discharge. [] Neck: Normal range of motion, no tenderness, supple, no stridor. [] Cardiovascular: Regular irregular heart rhythm with no murmurs Rubs. Lungs & Thorax: Bilateral breath sounds clear to auscultation she does have marked chest wall tenderness to palpation over the left breast with no obvious signs of deformity fractures or abnormal chest wall movement. Abdomen: Bowel sounds normal, soft, she does have tenderness over the epigastric region and the right upper quadrant with some increased reaction to pressure. Patient has no guarding rebound or organomegaly no Fay's or McBurney's point tenderness to palpation Skin: Warm, dry, no erythema, no rash. [] Back: No tenderness, no CVA tenderness. [] Extremities: No tenderness, no cyanosis, no clubbing, ROM intact, no edema. [] Neurologic: Alert and oriented X 3, normal motor function, normal sensory function, no focal deficits noted. [] Psychologic: Patient mildly anxious but has normal judgment Current Patient Data Vital Signs Vital Signs Date Time Temp Pulse Resp B/P (MAP) Pulse Ox O2 Delivery O2 Flow Rate FiO2 07/03/17 14:00 84 24 118/59 (78) 93 Room Air 07/03/17 12:00 98.3 98.3 Lab Values Laboratory Tests Test 07/03/17 12:25 White Blood Count 15.8 x10^3/uL (4.0-11.0) H Red Blood Count 3.37 x10^6/uL (3.50-5.40) L Hemoglobin 11.4 g/dL (12.0-15.5) L Hematocrit 33.0 % (36.0-47.0) L Mean Corpuscular Volume 98 fL (79-100) Mean Corpuscular Hemoglobin 34 pg (25-35) Mean Corpuscular Hemoglobin Concent 34 g/dL (31-37) Red Cell Distribution Width 15.1 % (11.5-14.5) H Platelet Count 397 x10^3/uL (140-400) Neutrophils (%) (Auto) 81 % (31-73) H Lymphocytes (%) (Auto) 6 % (24-48) L Monocytes (%) (Auto) 13 % (0-9) H Eosinophils (%) (Auto) 0 % (0-3) Basophils (%) (Auto) 0 % (0-3) Neutrophils # (Auto) 12.8 x10^3uL (1.8-7.7) H Lymphocytes # (Auto) 0.9 x10^3/uL (1.0-4.8) L Monocytes # (Auto) 2.1 x10^3/uL (0.0-1.1) H Eosinophils # (Auto) 0.0 x10^3/uL (0.0-0.7) Basophils # (Auto) 0.1 x10^3/uL (0.0-0.2) Segmented Neutrophils % 79 % (35-66) H Band Neutrophils % 2 % (0-9) Lymphocytes % 9 % (24-48) L Monocytes % 10 % (0-10) Toxic Vacuolation Slight Platelet Estimate Adequate (ADEQUATE) Giant Platelets Occ Polychromasia Slight Anisocytosis Slight Sodium Level 133 mmol/L (136-145) L Potassium Level 3.4 mmol/L (3.5-5.1) L Chloride Level 95 mmol/L (98-107) L Carbon Dioxide Level 29 mmol/L (21-32) Anion Gap 9 (6-14) Blood Urea Nitrogen 17 mg/dL (7-20) Creatinine 1.0 mg/dL (0.6-1.0) Estimated GFR (Cockcroft-Gault) 67.5 BUN/Creatinine Ratio 17 (6-20) Glucose Level 126 mg/dL (70-99) H Calcium Level 9.3 mg/dL (8.5-10.1) Magnesium Level 1.8 mg/dL (1.8-2.4) Total Bilirubin 0.5 mg/dL (0.2-1.0) Aspartate Amino Transferase (AST) 13 U/L (15-37) L Alanine Aminotransferase (ALT) 10 U/L (14-59) L Alkaline Phosphatase 121 U/L (46-116) H Creatine Kinase 23 U/L (26-192) L Creatine Kinase MB (Mass) < 0.5 ng/mL (0.0-3.6) Creatine Kinase MB Relative Index % (0-4) Troponin I Quantitative < 0.017 ng/mL (0.000-0.055) UB-Exf-T-Type Natriuretic Peptide 318 pg/mL (0-124) H Total Protein 7.6 g/dL (6.4-8.2) Albumin 2.6 g/dL (3.4-5.0) L Albumin/Globulin Ratio 0.5 (1.0-1.7) L Lipase 1310 U/L (73-393) H Thyroid Stimulating Hormone (TSH) 0.383 uIU/mL (0.358-3.74) Laboratory Tests 07/03/17 12:25 Laboratory Tests 07/03/17 12:25 EKG EKG EKG timed 11:54 AM 07/03/2017 read by me demonstrated P Lyly QRS normal sinus rhythm with a heart rate of 93. Intervals normal at 124 QRS interval was 84 2 normal QTC which is 438 which is also normal. Patient has some T-wave inversions in V1 and V2 no evidence of ST segment or T-wave changes consistent with acute cardiac ischemia does have occasional PVC as well[] Radiology/Procedures Radiology/Procedures [] [facility] [address] [place] [address] IMAGING REPORT Signed PATIENT: JOCELYNE HARRIS ACCOUNT: [id number] : 1950 LOCATION: ER AGE: 66 SEX: F EXAM STATUS: REG ER ORD. PHYSICIAN: KAYLA JOHNSON MD REASON: ab pain epigastrim PROCEDURE: CT ABDOMEN PELVIS WO CONTRAST INDICATION: Abdominal pain and nausea COMPARISON: 06/13/2017 TECHNIQUE: Axial CT images were obtained through the abdomen and pelvis without intravenous contrast. Coronal reformations were processed. FINDINGS: Mild cystic changes at partially visualized lung bases. Linear opacity left lung base. Trace pericardial fluid. Moderate calcific atherosclerosis. No definite intrahepatic bile duct dilation. Edema with infiltration of fat adjacent to the pancreatic body/tail. At the pancreatic tail there is a fluid collection identified measuring up to about 51 x 41 mm. This is increased in size from prior. Spleen is not grossly enlarged. Fullness in the left suprarenal region appears increased from prior measuring up to about 23 x 47 mm. Low-attenuation lesions of the bilateral kidneys again seen. These were better evaluated on prior CT with contrast. No definite hydronephrosis. Urinary bladder is largely decompressed. Colonic diverticulosis. Fat-containing ventral abdominal wall hernia. Multilevel degenerative changes of the spine with disc protrusions and facet hypertrophy with central canal and neural foraminal stenosis IMPRESSION: 1. Inflammatory changes as well as a small amount of free fluid is seen adjacent to the pancreatic tail and body. Could be from pancreatitis. In addition the previously identified cystic lesion at the pancreatic tail appears increased in size from prior. Could be secondary to interval increase in pseudocyst formation but a fluid collection is also within the differential. Given the interim increase would also consider obtaining a follow-up examination at a later time to ensure that this decreases in size to ensure that there is not an alternative cystic neoplastic etiology. 2. Fullness in the left suprarenal region. A portion of this is likely secondary to an adrenal nodule and a portion could be secondary to inflammatory changes or enlarged lymph nodes given the adjacent pancreatic process. 3. Low-density lesions of the bilateral kidneys are again seen and not well evaluated on this noncontrast examination. PQRS Compliance Statement: One or more of the following individualized dose reduction techniques were utilized for this examination: 1. Automated exposure control 2. Adjustment of the mA and/or kV according to patient size 3. Use of iterative reconstruction technique DICTATED and SIGNED BY: AMY OROZCO MD DATE: 07/03/17 1233 CC: KAYLA JOHNSON MD; JENARO TOWNSEND Course & Med Decision Making Course & Med Decision Making Pertinent Labs and Imaging studies reviewed. (See chart for details) She presents with a new onset of chest pain that is short in nature but unfortunate with her comorbidities is concerning for possible cardiac source of chest pain. Differential diagnosis for chest pain: Pericarditis, myocarditis, endocarditis, pneumothorax, pneumonia, aortic dissection, esophageal spasm, esophagitis, peptic ulcer disease, acute coronary syndrome, mediastinitis, Boerhaave syndrome, musculoskeletal chest wall pain, costochondritis, intercostal strain, rib fracture, pulmonary contusion, pneumonitis, pleural effusion, pericardial effusion, pericardial tamponode, and pleurisy. Was considered when this patient first arrived and EKG was performed immediately. There is no obvious signs of acute coronary syndrome at that time patient had a chest x-ray also completed. Time is now 1 PM patient feels markedly better awaiting laboratory work. Patient began fluids antiemetics and IV pain medications without aspirin as she is allergic to aspirin. Time is now 1:50 PM patient's laboratory work were completed patient demonstrates evidence of pancreatic tightness. Her lipase is 1300 her white blood cell count is 15,800 she shows mild anemia with an H&H of 11 and 33. Patient is put the count of 397 which is normal, BUn and CR, troponin negative , CK-MB negative. . Laboratory Tests Test 07/03/17 12:25 White Blood Count 15.8 x10^3/uL (4.0-11.0) Red Blood Count 3.37 x10^6/uL (3.50-5.40) Hemoglobin 11.4 g/dL (12.0-15.5) Hematocrit 33.0 % (36.0-47.0) Mean Corpuscular Volume 98 fL (79-100) Mean Corpuscular Hemoglobin 34 pg (25-35) Mean Corpuscular Hemoglobin Concent 34 g/dL (31-37) Red Cell Distribution Width 15.1 % (11.5-14.5) Platelet Count 397 x10^3/uL (140-400) Neutrophils (%) (Auto) 81 % (31-73) Lymphocytes (%) (Auto) 6 % (24-48) Monocytes (%) (Auto) 13 % (0-9) Eosinophils (%) (Auto) 0 % (0-3) Basophils (%) (Auto) 0 % (0-3) Neutrophils # (Auto) 12.8 x10^3uL (1.8-7.7) Lymphocytes # (Auto) 0.9 x10^3/uL (1.0-4.8) Monocytes # (Auto) 2.1 x10^3/uL (0.0-1.1) Eosinophils # (Auto) 0.0 x10^3/uL (0.0-0.7) Basophils # (Auto) 0.1 x10^3/uL (0.0-0.2) Segmented Neutrophils % 79 % (35-66) Band Neutrophils % 2 % (0-9) Lymphocytes % 9 % (24-48) Monocytes % 10 % (0-10) Toxic Vacuolation Slight Platelet Estimate Adequate (ADEQUATE) Giant Platelets Occ Polychromasia Slight Anisocytosis Slight Sodium Level 133 mmol/L (136-145) Chloride Level 95 mmol/L (98-107) Carbon Dioxide Level 29 mmol/L (21-32) Anion Gap 9 (6-14) Blood Urea Nitrogen 17 mg/dL (7-20) Estimated GFR (Cockcroft-Gault) 67.5 BUN/Creatinine Ratio 17 (6-20) Glucose Level 126 mg/dL (70-99) Calcium Level 9.3 mg/dL (8.5-10.1) Total Bilirubin 0.5 mg/dL (0.2-1.0) Aspartate Amino Transf (AST/SGOT) 13 U/L (15-37) Alkaline Phosphatase 121 U/L (46-116) Creatine Kinase 23 U/L (26-192) Creatine Kinase MB (Mass) < 0.5 ng/mL (0.0-3.6) Creatine Kinase MB Relative Index % (0-4) Troponin I Quantitative < 0.017 ng/mL (0.000-0.055) Total Protein 7.6 g/dL (6.4-8.2) Albumin 2.6 g/dL (3.4-5.0) Albumin/Globulin Ratio 0.5 (1.0-1.7) Lipase 1310 U/L (73-393) []Carding Utility Tender note: Medicine service paged to a 2:05 PM Carding Utility Tender called at of the service returned at 2:09 PM Consult called back at Discussed the case I presented and they agreed with admission. Time of acceptance 2:09 PM Impression: Chest pain unclear etiology we'll continue to evaluate with serial troponins and EKGs. Impression: Pancreatic tightness likely secondary to alcohol consumption will continue with fluid therapy antiemetics and pain control keep the patient nothing by mouth. At this point she has not exhibited any vomiting in the ER and no nasal gastric tube was placed Dragon Disclaimer Dragon Disclaimer This electronic medical record was generated, in whole or in part, using a voice recognition dictation system. Departure Departure Impression: Primary Impression: Chest pain Additional Impression: Pancreatitis Disposition: ADMITTED INPATIENT Admitting Physician: Daysi Hidalgo Condition: GUARDED Referrals: JENARO TOWNSEND (PCP) Problem Qualifiers KAYLA JOHNSON MD Jul 03, 2017 12:07
[2017-07-03 12:40] LABS: BASO # 0.1 x10^3/uL (0.0-0.2); BASO % 0 % (0-3); EOS % 0 % (0-3); HEMOGLOBIN 11.4 g/dL (12.0-15.5); LYMPH # 0.9 x10^3/uL (1.0-4.8); LYMPH % 6 % (24-48); MEAN CORPUSCULAR HEMOGLOBIN 34 pg (25-35); MEAN CORPUSCULAR HGB CONC 34 g/dL (31-37); MEAN CORPUSCULAR VOLUME 98 fL (79-100); MONO % 13 % (0-9); NEUT % 81 % (31-73); PLATELET COUNT 397 x10^3/uL (140-400); RED BLOOD COUNT 3.37 x10^6/uL (3.50-5.40); RED CELL DISTRIBUTION WIDTH 15.1 % (11.5-14.5); WHITE BLOOD COUNT 15.8 x10^3/uL (4.0-11.0)
[2017-07-03 12:54] LABS: MAGNESIUM 1.8 mg/dL (1.8-2.4)
--- NOTE | 2017-07-03 12:56 | RAD ---
INDICATION: Abdominal pain and nausea COMPARISON: 06/13/2017 TECHNIQUE: Axial CT images were obtained through the abdomen and pelvis without intravenous contrast. Coronal reformations were processed. FINDINGS: Mild cystic changes at partially visualized lung bases. Linear opacity left lung base. Trace pericardial fluid. Moderate calcific atherosclerosis. No definite intrahepatic bile duct dilation. Edema with infiltration of fat adjacent to the pancreatic body/tail. At the pancreatic tail there is a fluid collection identified measuring up to about 51 x 41 mm. This is increased in size from prior. Spleen is not grossly enlarged. Fullness in the left suprarenal region appears increased from prior measuring up to about 23 x 47 mm. Low-attenuation lesions of the bilateral kidneys again seen. These were better evaluated on prior CT with contrast. No definite hydronephrosis. Urinary bladder is largely decompressed. Colonic diverticulosis. Fat-containing ventral abdominal wall hernia. Multilevel degenerative changes of the spine with disc protrusions and facet hypertrophy with central canal and neural foraminal stenosis IMPRESSION: 1. Inflammatory changes as well as a small amount of free fluid is seen adjacent to the pancreatic tail and body. Could be from pancreatitis. In addition the previously identified cystic lesion at the pancreatic tail appears increased in size from prior. Could be secondary to interval increase in pseudocyst formation but a fluid collection is also within the differential. Given the interim increase would also consider obtaining a follow-up examination at a later time to ensure that this decreases in size to ensure that there is not an alternative cystic neoplastic etiology. 2. Fullness in the left suprarenal region. A portion of this is likely secondary to an adrenal nodule and a portion could be secondary to inflammatory changes or enlarged lymph nodes given the adjacent pancreatic process. 3. Low-density lesions of the bilateral kidneys are again seen and not well evaluated on this noncontrast examination. PQRS Compliance Statement: One or more of the following individualized dose reduction techniques were utilized for this examination: 1. Automated exposure control 2. Adjustment of the mA and/or kV according to patient size 3. Use of iterative reconstruction technique
[2017-07-03 13:01] LABS: ALBUMIN 2.6 g/dL (3.4-5.0); ALBUMIN/GLOBULIN RATIO 0.5 (1.0-1.7); CALCIUM 9.3 mg/dL (8.5-10.1); GFR 67.5; POTASSIUM 3.4 mmol/L (3.5-5.1); TOTAL BILIRUBIN 0.5 mg/dL (0.2-1.0); TOTAL PROTEIN 7.6 g/dL (6.4-8.2)
[2017-07-03 13:21] LABS: CREATINE KINASE 23 U/L (26-192)
[2017-07-03 13:22] LABS: CKMB MASS < 0.5 ng/mL (0.0-3.6)
[2017-07-03 13:23] LABS: ANISOCYTOSIS SLIGHT; PLT ESTIMATE ADEQUATE (ADEQUATE); POLYCHROMASIA SLIGHT; TOXIC VACUOLATION SLIGHT
--- NOTE | 2017-07-03 13:24 | RAD ---
INDICATION: chest pain COMPARISON: None. FINDINGS: Single view of chest obtained. Mild linear opacity left lung base without definite focal airspace consolidation elsewhere in the lungs. Calcific atherosclerosis. Degenerative changes spine. IMPRESSION: Mild linear opacity left lung base. Given the morphology this could be secondary to a region of atelectasis but if there is high clinical concern for infection an early infiltrate is not excluded.
[2017-07-03] MEDS ORDERED: IV NORMAL SALINE 1000ML BAG 1,000 ML IV STA (14:35)
[2017-07-03] MEDS ORDERED: ACETAMINOPHEN 325 MG TABLET. PO PRN ×2 (14:45→15:15)
[2017-07-03] MEDS ORDERED: ONDANSETRON PF 4 MG/2 ML VIAL. IV PRN ×2 (14:45→15:15)
[2017-07-03] MEDS ORDERED: fentaNYL PF VIAL 100 MCG/2 ML VIAL IV PRN (14:45)
--- NOTE | 2017-07-03 14:54 | EKG ---
[facility] [address] [place] [address] Test Date: 2017-07-03 Test Time: 11:54:57 Pat Name: JOCELYNE HARRIS Department: Room: Gender: F Medical Staff Credentialing Coordinator: : 1950 Requested By: KAYLA JOHNSON Order Number: [id number] Reading MD: Crystal Daley Measurements Intervals [place] Rate: 93 P: 26 SD: 124 QRS: 17 QRSD: 84 T: 54 QT: 350 QTc: 438 Interpretive Statements SINUS RHYTHM ATRIAL PREMATURE COMPLEX(ES) QRS(T) CONTOUR ABNORMALITY CONSIDER ANTEROSEPTAL MYOCARDIAL DAMAGE Electronically Signed On 07-04-2017 19:31:17 CDT by Crystal Daley
[2017-07-03] MEDS: IV NORMAL SALINE 1000ML BAG 1,000 ML IV SCH ×3 (15:00→17:24)
[2017-07-03] MEDS ORDERED: DOCUSATE SODIUM 100 MG CAPSULE. PO PRN (15:15)
[2017-07-03] MEDS ORDERED: hydrALAZINE 20 MG/ML VIAL. IVP PRN (15:15)
[2017-07-03] MEDS ORDERED: ALBUTEROL SULFATE 2.5 MG/3 ML NEBU. NEB PRN (15:15)
[2017-07-03] MEDS ORDERED: MORPHINE SULFATE 2 MG/ML DISP.SYRIN. IV PRN (15:15)
--- NOTE | 2017-07-03 15:31 | PDOC1 ---
History and Physical Date of Admission Date of Admission 07/03/17 Identification/Chief Complaint Chief Complaint chest pain, abd pain Problems: Source Source: Chart review, Patient History of Present Illness History of Present Illness HPI This patient is a pleasant 66-year-old female with a known history of hypertension and prior history of pancreatitis secondary to alcohol consumption presents with chest pain and abdominal pain. i didnot know she was just DCed from here 2 weeks ago till i came back to check previous notes. pt said last time drinking was 2 weeks ago 4-5 cans of beer, denies daily drink. 2 days after drinking, she started to have abd pain, intermittent, no radiation , with some nausea, no vomiting, no fever, chills, till yesterday, feels the abd pain got worse, 06/20. also had one time loose BM, not bloody. She started to fell left side chest pain last night, squeeze like, severe, lasting for hours, but never goes away, with some sob, no diaphoresis, no radiation, now is better. She actually was hit by her grand grand kid's toy to her middle chest pain, with severe tenderness. Troponin, EKG neg for now. She dose smoke, has some cough, no sputum. as per ERP, she was still drinking after dc 2 weeks ago, but when i asked her, she denies. CT showed At the pancreatic tail there is a fluid collection identified measuring up to about 51 x 41 mm. This is increased in size from prior. Fullness in the left suprarenal region appears increased from prior measuring up to about 23 x 47 mm. Past Medical History Cardiovascular: HTN CENTRAL NERVOUS SYSTEM: Periperal neuropathy Rheumatologic: Gout Infectious disease: Other Past Surgical History Past Surgical History: Hysterectomy, Other Family History Family History: Cancer, Diabetes, Hypertension, Stroke, Other Social History Smoke: <1 pack per day ALCOHOL: heavy Drugs: None Current Problem List Problem List Problems Medical Problems: (1) Chest pain Status: Acute (2) Pancreatitis Status: Acute Current Medications Current Medications Current Medications Medications (Trade) Dose Ordered Sig/Suhas Start Time Stop Time Status Last Admin Dose Admin Acetaminophen (Tylenol) 650 mg PRN Q6HRS PRN 07/03/17 15:15 UNV Albuterol Sulfate (Ventolin Neb Soln) 2.5 mg PRN Q4HRS PRN 07/03/17 15:15 UNV Docusate Sodium (Colace) 100 mg PRN DAILY PRN 07/03/17 15:15 UNV Fentanyl Citrate (Fentanyl 2ml Vial) 50 mcg PRN Q1HR PRN 07/03/17 14:45 07/04/17 14:44 Folic Acid (Folic Acid) 1 mg DAILY 07/04/17 09:00 UNV Gabapentin (Neurontin) 300 mg BID 07/03/17 21:00 UNV Guaifenesin (Robitussin) 200 mg PRN Q4HRS PRN 07/03/17 15:15 UNV Hydralazine HCl (Apresoline Inj) 10 mg PRN Q4HRS PRN 07/03/17 15:15 UNV Hydromorphone HCl (Dilaudid) 1 mg PRN Q15MIN PRN 07/03/17 12:00 07/04/17 11:59 07/03/17 12:29 1 MG Lisinopril (Prinivil) 20 mg DAILY 07/04/17 09:00 UNV Morphine Sulfate 2 mg PRN Q2HR PRN 07/03/17 15:15 UNV Non-Formulary Medication 1 cap DAILY 07/04/17 09:00 UNV Ondansetron HCl (Zofran) 4 mg PRN Q6HRS PRN 07/03/17 15:15 UNV Sodium Chloride 1,000 ml @ 125 mls/hr DAILY 07/03/17 16:00 UNV Sodium Chloride (Normal Saline Flush) 10 ml QSHIFT PRN 07/03/17 12:00 Tramadol HCl (Ultram) 50 mg PRN Q6HRS PRN 07/03/17 15:15 UNV Allergies Allergies Allergies Coded Allergies Type Severity Reaction Last Updated Verified No Known Medication Allergies Allergy Unknown 07/03/17 Yes aspirin Adverse Reaction Intermediate HX OF PERFORATED ULCERS 07/03/17 Yes ROS Review of System CONSTITUTIONAL: No fever or chills EYES: No recent changes SKIN: No rash or itching CARDIOVASCULAR: No chest pain, syncope, palpitations, or edema RESPIRATORY: No SOB or cough GASTROINTESTINAL: No nausea, vomiting or abdominal pain NEUROLOGICAL: No headaches or weakness ENDOCRINE: No cold or heat intolerance GENITOURINARY: No urgency or frequency of urination MUSCULOSKELETAL: No back pain or joint pain LYMPHATICS: No enlarged lymph nodes PSYCHIATRIC: No anxiety or depression Physical Exam Physical Exam GEN.: No apparent distress. Alert and oriented. HEENT: Head is normocephalic, atraumatic NECK: Supple. LUNGS: Clear to auscultation. chest wall tenderness HEART: RRR, S1, S2 present. Peripheral pulses intact ABDOMEN: Soft, Positive bowel sounds. middle abd moderate tenderness EXTREMITIES: Without any cyanosis. NEUROLOGIC: Normal speech, normal tone PSYCHIATRIC: Normal affect, normal mood. SKIN: No ulcerations Vitals Vitals Vital Signs Date Time Temp Pulse Resp B/P (MAP) Pulse Ox O2 Delivery O2 Flow Rate FiO2 07/03/17 14:00 84 24 118/59 (78) 93 Room Air 07/03/17 12:00 98.3 98.3 Labs Labs Laboratory Tests Test 07/03/17 12:25 White Blood Count 15.8 x10^3/uL (4.0-11.0) Red Blood Count 3.37 x10^6/uL (3.50-5.40) Hemoglobin 11.4 g/dL (12.0-15.5) Hematocrit 33.0 % (36.0-47.0) Mean Corpuscular Volume 98 fL (79-100) Mean Corpuscular Hemoglobin 34 pg (25-35) Mean Corpuscular Hemoglobin Concent 34 g/dL (31-37) Red Cell Distribution Width 15.1 % (11.5-14.5) Platelet Count 397 x10^3/uL (140-400) Neutrophils (%) (Auto) 81 % (31-73) Lymphocytes (%) (Auto) 6 % (24-48) Monocytes (%) (Auto) 13 % (0-9) Eosinophils (%) (Auto) 0 % (0-3) Basophils (%) (Auto) 0 % (0-3) Neutrophils # (Auto) 12.8 x10^3uL (1.8-7.7) Lymphocytes # (Auto) 0.9 x10^3/uL (1.0-4.8) Monocytes # (Auto) 2.1 x10^3/uL (0.0-1.1) Eosinophils # (Auto) 0.0 x10^3/uL (0.0-0.7) Basophils # (Auto) 0.1 x10^3/uL (0.0-0.2) Segmented Neutrophils % 79 % (35-66) Band Neutrophils % 2 % (0-9) Lymphocytes % 9 % (24-48) Monocytes % 10 % (0-10) Toxic Vacuolation Slight Platelet Estimate Adequate (ADEQUATE) Giant Platelets Occ Polychromasia Slight Anisocytosis Slight Sodium Level 133 mmol/L (136-145) Potassium Level 3.4 mmol/L (3.5-5.1) Chloride Level 95 mmol/L (98-107) Carbon Dioxide Level 29 mmol/L (21-32) Anion Gap 9 (6-14) Blood Urea Nitrogen 17 mg/dL (7-20) Creatinine 1.0 mg/dL (0.6-1.0) Estimated GFR (Cockcroft-Gault) 67.5 BUN/Creatinine Ratio 17 (6-20) Glucose Level 126 mg/dL (70-99) Calcium Level 9.3 mg/dL (8.5-10.1) Magnesium Level 1.8 mg/dL (1.8-2.4) Total Bilirubin 0.5 mg/dL (0.2-1.0) Aspartate Amino Transf (AST/SGOT) 13 U/L (15-37) Alanine Aminotransferase (ALT/SGPT) 10 U/L (14-59) Alkaline Phosphatase 121 U/L (46-116) Creatine Kinase 23 U/L (26-192) Creatine Kinase MB (Mass) < 0.5 ng/mL (0.0-3.6) Creatine Kinase MB Relative Index % (0-4) Troponin I Quantitative < 0.017 ng/mL (0.000-0.055) VE-Gtz-X-Type Natriuretic Peptide 318 pg/mL (0-124) Total Protein 7.6 g/dL (6.4-8.2) Albumin 2.6 g/dL (3.4-5.0) Albumin/Globulin Ratio 0.5 (1.0-1.7) Lipase 1310 U/L (73-393) Thyroid Stimulating Hormone (TSH) 0.383 uIU/mL (0.358-3.74) Laboratory Tests Test 07/03/17 12:25 White Blood Count 15.8 x10^3/uL (4.0-11.0) Red Blood Count 3.37 x10^6/uL (3.50-5.40) Hemoglobin 11.4 g/dL (12.0-15.5) Hematocrit 33.0 % (36.0-47.0) Mean Corpuscular Volume 98 fL (79-100) Mean Corpuscular Hemoglobin 34 pg (25-35) Mean Corpuscular Hemoglobin Concent 34 g/dL (31-37) Red Cell Distribution Width 15.1 % (11.5-14.5) Platelet Count 397 x10^3/uL (140-400) Neutrophils (%) (Auto) 81 % (31-73) Lymphocytes (%) (Auto) 6 % (24-48) Monocytes (%) (Auto) 13 % (0-9) Eosinophils (%) (Auto) 0 % (0-3) Basophils (%) (Auto) 0 % (0-3) Neutrophils # (Auto) 12.8 x10^3uL (1.8-7.7) Lymphocytes # (Auto) 0.9 x10^3/uL (1.0-4.8) Monocytes # (Auto) 2.1 x10^3/uL (0.0-1.1) Eosinophils # (Auto) 0.0 x10^3/uL (0.0-0.7) Basophils # (Auto) 0.1 x10^3/uL (0.0-0.2) Segmented Neutrophils % 79 % (35-66) Band Neutrophils % 2 % (0-9) Lymphocytes % 9 % (24-48) Monocytes % 10 % (0-10) Toxic Vacuolation Slight Platelet Estimate Adequate (ADEQUATE) Giant Platelets Occ Polychromasia Slight Anisocytosis Slight Sodium Level 133 mmol/L (136-145) Potassium Level 3.4 mmol/L (3.5-5.1) Chloride Level 95 mmol/L (98-107) Carbon Dioxide Level 29 mmol/L (21-32) Anion Gap 9 (6-14) Blood Urea Nitrogen 17 mg/dL (7-20) Creatinine 1.0 mg/dL (0.6-1.0) Estimated GFR (Cockcroft-Gault) 67.5 BUN/Creatinine Ratio 17 (6-20) Glucose Level 126 mg/dL (70-99) Calcium Level 9.3 mg/dL (8.5-10.1) Magnesium Level 1.8 mg/dL (1.8-2.4) Total Bilirubin 0.5 mg/dL (0.2-1.0) Aspartate Amino Transf (AST/SGOT) 13 U/L (15-37) Alanine Aminotransferase (ALT/SGPT) 10 U/L (14-59) Alkaline Phosphatase 121 U/L (46-116) Creatine Kinase 23 U/L (26-192) Creatine Kinase MB (Mass) < 0.5 ng/mL (0.0-3.6) Creatine Kinase MB Relative Index % (0-4) Troponin I Quantitative < 0.017 ng/mL (0.000-0.055) KS-Vfc-Y-Type Natriuretic Peptide 318 pg/mL (0-124) Total Protein 7.6 g/dL (6.4-8.2) Albumin 2.6 g/dL (3.4-5.0) Albumin/Globulin Ratio 0.5 (1.0-1.7) Lipase 1310 U/L (73-393) Thyroid Stimulating Hormone (TSH) 0.383 uIU/mL (0.358-3.74) VTE Prophylaxis Ordered VTE Prophylaxis Devices: Yes VTE Pharmacological Prophylaxi: Yes Assessment/Plan Assessment/Plan chest pain, 2/2 trauma likely with MSK pain abd pain, acute recurrent pancreatitis with a larger cyst 51 x 41 mm recent alcoholic pancreatitis left suprarenal region/adrenal nodule 23 x 47 mm. htn gerd hypokalemmia SIRS, no infection mild malnutrition tobaccoism plan: gi consult cycle CE npo, ivf lipase daily replete K labs tmr dvt, gi ppx drug tox albuterol prn admit 2nights GUY CHRISTIAN MD Jul 03, 2017 15:31
[2017-07-03] MEDS ORDERED: POTASSIUM CHLORIDE 20 MEQ TABLET.ER. PO ONE (16:00)
--- NOTE | 2017-07-03 16:03 | PDOC2 ---
GI CONSULT Reason For Consult: Abd pain HPI: HPI: 66 y/o female who we saw just a few weeks ago for alcoholic pancreatitis. At that time had 3cm cyst in pancreatic tail on CT. After discharge, was able to avoid alcohol completely until about 4-5 days ago when had several beers, says due to family stress (custody issues w/ grandchildren). A couple days later, began having epigastric pain similar to previous episode of pancreatitis. Has also continued to have chest pain related to a fall (tripped over a toy) prior to last admission. No n/v, but "spitting up" clear phlegm. Did have two loose stools (now resolved), mentions family members told her they had the "stomach flu." Denies hematemesis, hematochezia, melena. H/o GERD controlled w/ omeprazole QD, h/o (NSAID-related) requiring laparotomy in . Not clear when last EGD performed, thinks last colonoscopy within a few years. No gallbladder or liver history. No NSAIDs. Labs: WBC 15.8, Hgb 11.4 (stable), Alk Phos 121, Na 133, K 3.4, lipase 1310. CT w/ interval increase in size of pancreatic body/tail cyst (now 4-5cm). PMH: PMH: HTN, peripheral neuropathy, GERD, PUD, alcoholism, pancreatitis, OA, gout, UTIs , hysterectomy, laparotomy for FH: Family History: Cancer (leukemia), CVA, DM, Hypertension, Thyroid dysfunction Social History: Smoke: <1 pack per day ALCOHOL: heavy Drugs: None ROS: GEN: Denies fevers, chills, sweats HEENT: Denies blurred vision, sore throat CV: +chest pain RESP: +cough GI: Per HPI : Denies hematuria, dysuria ENDO: Denies weight changes NEURO: Denies confusion, dizziness MSK: Denies weakness, joint pain/swelling SKIN: Denies jaundice, pruritus Vitals: Vitals: Vital Signs Date Time Temp Pulse Resp B/P (MAP) Pulse Ox O2 Delivery O2 Flow Rate FiO2 07/03/17 14:00 84 24 118/59 (78) 93 Room Air 07/03/17 12:00 98.3 98.3 Labs: Labs: Laboratory Tests Test 07/03/17 12:25 White Blood Count 15.8 x10^3/uL (4.0-11.0) Red Blood Count 3.37 x10^6/uL (3.50-5.40) Hemoglobin 11.4 g/dL (12.0-15.5) Hematocrit 33.0 % (36.0-47.0) Mean Corpuscular Volume 98 fL (79-100) Mean Corpuscular Hemoglobin 34 pg (25-35) Mean Corpuscular Hemoglobin Concent 34 g/dL (31-37) Red Cell Distribution Width 15.1 % (11.5-14.5) Platelet Count 397 x10^3/uL (140-400) Neutrophils (%) (Auto) 81 % (31-73) Lymphocytes (%) (Auto) 6 % (24-48) Monocytes (%) (Auto) 13 % (0-9) Eosinophils (%) (Auto) 0 % (0-3) Basophils (%) (Auto) 0 % (0-3) Neutrophils # (Auto) 12.8 x10^3uL (1.8-7.7) Lymphocytes # (Auto) 0.9 x10^3/uL (1.0-4.8) Monocytes # (Auto) 2.1 x10^3/uL (0.0-1.1) Eosinophils # (Auto) 0.0 x10^3/uL (0.0-0.7) Basophils # (Auto) 0.1 x10^3/uL (0.0-0.2) Segmented Neutrophils % 79 % (35-66) Band Neutrophils % 2 % (0-9) Lymphocytes % 9 % (24-48) Monocytes % 10 % (0-10) Toxic Vacuolation Slight Platelet Estimate Adequate (ADEQUATE) Giant Platelets Occ Polychromasia Slight Anisocytosis Slight Sodium Level 133 mmol/L (136-145) Potassium Level 3.4 mmol/L (3.5-5.1) Chloride Level 95 mmol/L (98-107) Carbon Dioxide Level 29 mmol/L (21-32) Anion Gap 9 (6-14) Blood Urea Nitrogen 17 mg/dL (7-20) Creatinine 1.0 mg/dL (0.6-1.0) Estimated GFR (Cockcroft-Gault) 67.5 BUN/Creatinine Ratio 17 (6-20) Glucose Level 126 mg/dL (70-99) Calcium Level 9.3 mg/dL (8.5-10.1) Magnesium Level 1.8 mg/dL (1.8-2.4) Total Bilirubin 0.5 mg/dL (0.2-1.0) Aspartate Amino Transf (AST/SGOT) 13 U/L (15-37) Alanine Aminotransferase (ALT/SGPT) 10 U/L (14-59) Alkaline Phosphatase 121 U/L (46-116) Creatine Kinase 23 U/L (26-192) Creatine Kinase MB (Mass) < 0.5 ng/mL (0.0-3.6) Creatine Kinase MB Relative Index % (0-4) Troponin I Quantitative < 0.017 ng/mL (0.000-0.055) HJ-Mxn-H-Type Natriuretic Peptide 318 pg/mL (0-124) Total Protein 7.6 g/dL (6.4-8.2) Albumin 2.6 g/dL (3.4-5.0) Albumin/Globulin Ratio 0.5 (1.0-1.7) Lipase 1310 U/L (73-393) Thyroid Stimulating Hormone (TSH) 0.383 uIU/mL (0.358-3.74) Allergies: Coded Allergies: No Known Medication Allergies (Verified Allergy, Unknown, 07/03/17) aspirin (Verified Adverse Reaction, Intermediate, HX OF PERFORATED ULCERS , 07/03/17) Medications: Current Medications Medications (Trade) Dose Ordered Sig/Suhas Route PRN Reason Start Time Stop Time Status Last Admin Dose Admin Hydromorphone HCl (Dilaudid) 1 mg PRN Q15MIN PRN IV/SQ PAIN GREATER THAN 3/10 07/03/17 12:00 07/04/17 11:59 07/03/17 12:29 Sodium Chloride 1,000 ml @ 1,000 mls/hr Q1H IV 07/03/17 11:56 07/03/17 12:55 DC 07/03/17 12:26 Ondansetron HCl (Zofran) 4 mg 1X ONCE IV 07/03/17 12:00 07/03/17 12:01 DC 07/03/17 12:27 Imaging: Imaging: CXR IMPRESSION: Mild linear opacity left lung base. Given the morphology this could be secondary to a region of atelectasis but if there is high clinical concern for CT A/P w/o contrast FINDINGS: Mild cystic changes at partially visualized lung bases. Linear opacity left lung base. Trace pericardial fluid. Moderate calcific atherosclerosis. No definite intrahepatic bile duct dilation. Edema with infiltration of fat adjacent to the pancreatic body/tail. At the pancreatic tail there is a fluid collection identified measuring up to about 51 x 41 mm. This is increased in size from prior. Spleen is not grossly enlarged. Fullness in the left suprarenal region appears increased from prior measuring up to about 23 x 47 mm. Low-attenuation lesions of the bilateral kidneys again seen. These were better evaluated on prior CT with contrast. No definite hydronephrosis. Urinary bladder is largely decompressed. Colonic diverticulosis. Fat-containing ventral abdominal wall hernia. Multilevel degenerative changes of the spine with disc protrusions and facet hypertrophy with central canal and neural foraminal stenosis. IMPRESSION: 1. Inflammatory changes as well as a small amount of free fluid is seen adjacent to the pancreatic tail and body. Could be from pancreatitis. In addition the previously identified cystic lesion at the pancreatic tail appears increased in size from prior. Could be secondary to interval increase in pseudocyst formation but a fluid collection is also within the differential. Given the interim increase would also consider obtaining a follow-up examination at a later time to ensure that this decreases in size to ensure that there is not an alternative cystic neoplastic etiology. 2. Fullness in the left suprarenal region. A portion of this is likely secondary to an adrenal nodule and a portion could be secondary to inflammatory changes or enlarged lymph nodes given the adjacent pancreatic process. 3. Low-density lesions of the bilateral kidneys are again seen and not well evaluated on this noncontrast examination. PE: GEN: NAD HEENT: Atraumatic, PERRL LUNGS: diminished anteriorly HEART: RRR, chest wall tender to light touch ABD: NABS, S/ND, epigastric discomfort to LUQ EXTREMITY: No edema SKIN: No rashes, no jaundice NEURO/PSYCH: A & O 3 A/P: A/P: Recurrent pancreatitis, likely alcohol-induced -second admission this month for upper abd/chest pain -was avoiding alcohol but slipped up 4-[address] w/ enlarging pancreatic cyst GERD, h/o PUD -on PPI CRC screen -last colonoscopy within a few years Leukocytosis, hyponatremia (present last admission - improved), hypokalemia Chest wall pain w/ recent fall -- NPO, supportive care. ?re-image to follow cyst later on Continue PPI. GLORIA KOHLI Jul 03, 2017 16:02
[2017-07-03 17:00] VITALS: BP 124/73
[2017-07-03] MEDS: ENOXAPARIN 40 MG/0.4 ML SYRINGE. SQ SCH (17:24)
[2017-07-03] MEDS ORDERED: GABA-586 PO (17:32)
[2017-07-03 19:00] VITALS: BP 141/77
[2017-07-03] MEDS: GABAPENTIN 300 MG CAPSULE. PO SCH (20:35)
[2017-07-03 20:54] LABS: BILIRUBIN,URINE MODERATE (NEG); GLUCOSE,URINE NEGATIVE (NEG); NITRITE,URINE NEGATIVE (NEG); PH,URINE 5.5; PROTEIN,URINE 30 mg/dL (NEG-TRACE)
[2017-07-03] MEDS ORDERED: GABAPENTIN 300 MG CAPSULE. PO SCH (21:00)
[2017-07-03 21:12] LABS: BARBITURATES NEG (NEG); BENZODIAZEPINES NEG (NEG); CANNABINOIDS POS (NEG); COCAINE NEG (NEG); METHADONE NEG (NEG); OPIATES NEG (NEG); PHENCYCLIDINE NEG (NEG)
[2017-07-03 21:14] LABS: BACTERIA,URINE FEW /HPF (0-FEW); RBC,URINE 0 /HPF (0-2); SQUAMOUS EPITHELIAL CELL,UR MOD /LPF
[2017-07-03 23:09] VITALS: BP 130/68
[2017-07-04] MEDS: IV NORMAL SALINE 1000ML BAG 1,000 ML IV SCH ×2 (01:46→10:30)
[2017-07-04 02:55] VITALS: BP 138/80
[2017-07-04 03:16] LABS: CALCIUM 8.9 mg/dL (8.5-10.1); CREATININE 0.8 mg/dL (0.6-1.0); GFR 87.4
[2017-07-04] MEDS: PANTOPRAZOLE 40 MG TABLET.DR. PO SCH (06:32)
[2017-07-04 07:00] VITALS: BP 121/74
[2017-07-04] MEDS: FOLIC ACID 1 MG TABLET. PO SCH (07:48)
[2017-07-04] MEDS: MULTIVITAMIN with MINERAL TABLET. PO SCH (07:48)
[2017-07-04] MEDS: LISINOPRIL 20 MG TABLET PO SCH (07:48)
[2017-07-04] MEDS: GABAPENTIN 300 MG CAPSULE. PO SCH ×3 (07:48→21:02)
[2017-07-04] MEDS: ENOXAPARIN 40 MG/0.4 ML SYRINGE. SQ SCH (07:49)
[2017-07-04 10:18] LABS: BASO % 0 % (0-3); EOS % 0 % (0-3); HEMATOCRIT 34.3 % (36.0-47.0); HEMOGLOBIN 11.1 g/dL (12.0-15.5); LYMPH # 1.1 x10^3/uL (1.0-4.8); LYMPH % 10 % (24-48); MEAN CORPUSCULAR HEMOGLOBIN 32 pg (25-35); MEAN CORPUSCULAR HGB CONC 32 g/dL (31-37); MEAN CORPUSCULAR VOLUME 99 fL (79-100); MONO % 15 % (0-9); NEUT % 75 % (31-73); PLATELET COUNT 348 x10^3/uL (140-400); RED BLOOD COUNT 3.48 x10^6/uL (3.50-5.40); WHITE BLOOD COUNT 11.8 x10^3/uL (4.0-11.0)
[2017-07-04 11:00] VITALS: BP 138/90
--- NOTE | 2017-07-04 11:23 | PDOC ---
Subjective: Subjective: Still some abd pain but better - would like some jello. Objective: Vital Signs: Vital Signs Date Time Temp Pulse Resp B/P (MAP) Pulse Ox O2 Delivery O2 Flow Rate FiO2 07/04/17 08:00 Room Air 07/04/17 07:48 84 121/74 07/04/17 07:00 98.4 18 96 98.4 Labs: Laboratory Tests Test 07/03/17 11:45 07/03/17 12:25 07/03/17 20:50 07/04/17 02:50 Urine Collection Type Unknown Urine Color [place] Urine Clarity Clear Urine pH 5.5 Urine Specific [place] >=1.030 Urine Protein 30 mg/dL Urine Glucose (UA) Negative mg/dL Urine Ketones (Stick) Trace mg/dL Urine Blood Negative Urine Nitrite Negative Urine Bilirubin Moderate Urine Urobilinogen Dipstick 1.0 mg/dL Urine Leukocyte Esterase Trace Urine RBC 0 /HPF Urine WBC 1-4 /HPF Urine Squamous Epithelial Cells Mod /LPF Urine Amorphous Sediment Present /HPF Urine Bacteria Few /HPF Urine Hyaline Casts Moderate /HPF Urine Mucus Marked /LPF Urine Opiates Screen Neg Urine Methadone Screen Neg Urine Barbiturates Neg Urine Phencyclidine Screen Neg Urine Amphetamine/Methamphetamine Neg Urine Benzodiazepines Screen Neg Urine Cocaine Screen Neg Urine Cannabinoids Screen Pos Urine Ethyl Alcohol Neg White Blood Count 15.8 x10^3/uL Red Blood Count 3.37 x10^6/uL Hemoglobin 11.4 g/dL Hematocrit 33.0 % Mean Corpuscular Volume 98 fL Mean Corpuscular Hemoglobin 34 pg Mean Corpuscular Hemoglobin Concent 34 g/dL Red Cell Distribution Width 15.1 % Platelet Count 397 x10^3/uL Neutrophils (%) (Auto) 81 % Lymphocytes (%) (Auto) 6 % Monocytes (%) (Auto) 13 % Eosinophils (%) (Auto) 0 % Basophils (%) (Auto) 0 % Neutrophils # (Auto) 12.8 x10^3uL Lymphocytes # (Auto) 0.9 x10^3/uL Monocytes # (Auto) 2.1 x10^3/uL Eosinophils # (Auto) 0.0 x10^3/uL Basophils # (Auto) 0.1 x10^3/uL Segmented Neutrophils % 79 % Band Neutrophils % 2 % Lymphocytes % 9 % Monocytes % 10 % Toxic Vacuolation Slight Platelet Estimate Adequate Giant Platelets Occ Polychromasia Slight Anisocytosis Slight Sodium Level 133 mmol/L 135 mmol/L Potassium Level 3.4 mmol/L 4.0 mmol/L Chloride Level 95 mmol/L 101 mmol/L Carbon Dioxide Level 29 mmol/L 26 mmol/L Anion Gap 9 8 Blood Urea Nitrogen 17 mg/dL 15 mg/dL Creatinine 1.0 mg/dL 0.8 mg/dL Estimated GFR (Cockcroft-Gault) 67.5 87.4 BUN/Creatinine Ratio 17 Glucose Level 126 mg/dL 90 mg/dL Calcium Level 9.3 mg/dL 8.9 mg/dL Magnesium Level 1.8 mg/dL Total Bilirubin 0.5 mg/dL Aspartate Amino Transf (AST/SGOT) 13 U/L Alanine Aminotransferase (ALT/SGPT) 10 U/L Alkaline Phosphatase 121 U/L Creatine Kinase 23 U/L Creatine Kinase MB (Mass) < 0.5 ng/mL Creatine Kinase MB Relative Index % Troponin I Quantitative < 0.017 ng/mL < 0.017 ng/mL < 0.017 ng/mL HQ-Dba-Q-Type Natriuretic Peptide 318 pg/mL Total Protein 7.6 g/dL Albumin 2.6 g/dL Albumin/Globulin Ratio 0.5 Lipase 1310 U/L 836 U/L Thyroid Stimulating Hormone (TSH) 0.383 uIU/mL Test 07/04/17 09:15 White Blood Count 11.8 x10^3/uL Red Blood Count 3.48 x10^6/uL Hemoglobin 11.1 g/dL Hematocrit 34.3 % Mean Corpuscular Volume 99 fL Mean Corpuscular Hemoglobin 32 pg Mean Corpuscular Hemoglobin Concent 32 g/dL Red Cell Distribution Width 15.0 % Platelet Count 348 x10^3/uL Neutrophils (%) (Auto) 75 % Lymphocytes (%) (Auto) 10 % Monocytes (%) (Auto) 15 % Eosinophils (%) (Auto) 0 % Basophils (%) (Auto) 0 % Neutrophils # (Auto) 8.8 x10^3uL Lymphocytes # (Auto) 1.1 x10^3/uL Monocytes # (Auto) 1.8 x10^3/uL Eosinophils # (Auto) 0.0 x10^3/uL Basophils # (Auto) 0.0 x10^3/uL PE: GEN: NAD LUNGS: CTAB HEART: RRR ABD: soft, less tender NEURO/PSYCH: A & O 3 A/P: Recurrent pancreatitis, likely alcohol-induced -abnormal CT w/ enlarging pancreatic cyst Leukocytosis (improved), hyponatremia (improved), hypokalemia (resolved) -- Pain improved today. Try clears. Repeat imaging in 4-6 weeks. GLORIA KOHLI Jul 04, 2017 11:23
--- NOTE | 2017-07-04 14:29 | PDOC ---
PROGRESS NOTES Chief Complaint Chief Complaint chest pain, 2/2 trauma likely with MSK pain abd pain, acute recurrent pancreatitis with a larger cyst 51 x 41 mm recent alcoholic pancreatitis left suprarenal region/adrenal nodule 23 x 47 mm. htn gerd hypokalemmia SIRS, no infection mild malnutrition tobaccoism leukocytosis, reactive plan: gi consulted cycle CE start clear liquid, cont ivf lipase daily replete K labs tmr dvt, gi ppx drug tox albuterol prn History of Present Illness History of Present Illness ROS: no fever, chills, sob or chest pain cont having chest pain with tenderness abd pain better to 3/10 lipase better to 835 Vitals Vitals Vital Signs Date Time Temp Pulse Resp B/P (MAP) Pulse Ox O2 Delivery O2 Flow Rate FiO2 07/04/17 08:00 Room Air 07/04/17 07:48 84 121/74 07/04/17 07:00 98.4 18 96 98.4 Physical Exam General: Alert, Oriented X3, Cooperative Heart: Regular rate, Normal S1, Normal S2 Lungs: Clear Abdomen: Normal bowel sounds, Soft, Other (middle abd mild tenderness) Extremities: No clubbing, No cyanosis Skin: No rashes Labs LABS Laboratory Tests Test 07/03/17 20:50 07/04/17 02:50 07/04/17 09:15 Troponin I Quantitative < 0.017 ng/mL (0.000-0.055) < 0.017 ng/mL (0.000-0.055) Sodium Level 135 mmol/L (136-145) Potassium Level 4.0 mmol/L (3.5-5.1) Chloride Level 101 mmol/L (98-107) Carbon Dioxide Level 26 mmol/L (21-32) Anion Gap 8 (6-14) Blood Urea Nitrogen 15 mg/dL (7-20) Creatinine 0.8 mg/dL (0.6-1.0) Estimated GFR (Cockcroft-Gault) 87.4 Glucose Level 90 mg/dL (70-99) Calcium Level 8.9 mg/dL (8.5-10.1) Lipase 836 U/L (73-393) White Blood Count 11.8 x10^3/uL (4.0-11.0) Red Blood Count 3.48 x10^6/uL (3.50-5.40) Hemoglobin 11.1 g/dL (12.0-15.5) Hematocrit 34.3 % (36.0-47.0) Mean Corpuscular Volume 99 fL (79-100) Mean Corpuscular Hemoglobin 32 pg (25-35) Mean Corpuscular Hemoglobin Concent 32 g/dL (31-37) Red Cell Distribution Width 15.0 % (11.5-14.5) Platelet Count 348 x10^3/uL (140-400) Neutrophils (%) (Auto) 75 % (31-73) Lymphocytes (%) (Auto) 10 % (24-48) Monocytes (%) (Auto) 15 % (0-9) Eosinophils (%) (Auto) 0 % (0-3) Basophils (%) (Auto) 0 % (0-3) Neutrophils # (Auto) 8.8 x10^3uL (1.8-7.7) Lymphocytes # (Auto) 1.1 x10^3/uL (1.0-4.8) Monocytes # (Auto) 1.8 x10^3/uL (0.0-1.1) Eosinophils # (Auto) 0.0 x10^3/uL (0.0-0.7) Basophils # (Auto) 0.0 x10^3/uL (0.0-0.2) Assessment and Plan Assessmemt and Plan Problems Medical Problems: (1) Chest pain Status: Acute (2) Pancreatitis Status: Acute Problems: Comment Review of Relevant I have reviewed the following items patrizia (where applicable) has been applied. Labs Laboratory Tests Test 07/03/17 11:45 07/03/17 12:25 07/03/17 20:50 07/04/17 02:50 Urine Collection Type Unknown Urine Color [place] Urine Clarity Clear Urine pH 5.5 Urine Specific [place] >=1.030 Urine Protein 30 mg/dL (NEG-TRACE) Urine Glucose (UA) Negative mg/dL (NEG) Urine Ketones (Stick) Trace mg/dL (NEG) Urine Blood Negative (NEG) Urine Nitrite Negative (NEG) Urine Bilirubin Moderate (NEG) Urine Urobilinogen Dipstick 1.0 mg/dL (0.2 mg/dL) Urine Leukocyte Esterase Trace (NEG) Urine RBC 0 /HPF (0-2) Urine WBC 1-4 /HPF (0-4) Urine Squamous Epithelial Cells Mod /LPF Urine Amorphous Sediment Present /HPF Urine Bacteria Few /HPF (0-FEW) Urine Hyaline Casts Moderate /HPF Urine Mucus Marked /LPF Urine Opiates Screen Neg (NEG) Urine Methadone Screen Neg (NEG) Urine Barbiturates Neg (NEG) Urine Phencyclidine Screen Neg (NEG) Urine Amphetamine/Methamphetamine Neg (NEG) Urine Benzodiazepines Screen Neg (NEG) Urine Cocaine Screen Neg (NEG) Urine Cannabinoids Screen Pos (NEG) Urine Ethyl Alcohol Neg (NEG) White Blood Count 15.8 x10^3/uL (4.0-11.0) Red Blood Count 3.37 x10^6/uL (3.50-5.40) Hemoglobin 11.4 g/dL (12.0-15.5) Hematocrit 33.0 % (36.0-47.0) Mean Corpuscular Volume 98 fL (79-100) Mean Corpuscular Hemoglobin 34 pg (25-35) Mean Corpuscular Hemoglobin Concent 34 g/dL (31-37) Red Cell Distribution Width 15.1 % (11.5-14.5) Platelet Count 397 x10^3/uL (140-400) Neutrophils (%) (Auto) 81 % (31-73) Lymphocytes (%) (Auto) 6 % (24-48) Monocytes (%) (Auto) 13 % (0-9) Eosinophils (%) (Auto) 0 % (0-3) Basophils (%) (Auto) 0 % (0-3) Neutrophils # (Auto) 12.8 x10^3uL (1.8-7.7) Lymphocytes # (Auto) 0.9 x10^3/uL (1.0-4.8) Monocytes # (Auto) 2.1 x10^3/uL (0.0-1.1) Eosinophils # (Auto) 0.0 x10^3/uL (0.0-0.7) Basophils # (Auto) 0.1 x10^3/uL (0.0-0.2) Segmented Neutrophils % 79 % (35-66) Band Neutrophils % 2 % (0-9) Lymphocytes % 9 % (24-48) Monocytes % 10 % (0-10) Toxic Vacuolation Slight Platelet Estimate Adequate (ADEQUATE) Giant Platelets Occ Polychromasia Slight Anisocytosis Slight Sodium Level 133 mmol/L (136-145) 135 mmol/L (136-145) Potassium Level 3.4 mmol/L (3.5-5.1) 4.0 mmol/L (3.5-5.1) Chloride Level 95 mmol/L (98-107) 101 mmol/L (98-107) Carbon Dioxide Level 29 mmol/L (21-32) 26 mmol/L (21-32) Anion Gap 9 (6-14) 8 (6-14) Blood Urea Nitrogen 17 mg/dL (7-20) 15 mg/dL (7-20) Creatinine 1.0 mg/dL (0.6-1.0) 0.8 mg/dL (0.6-1.0) Estimated GFR (Cockcroft-Gault) 67.5 87.4 BUN/Creatinine Ratio 17 (6-20) Glucose Level 126 mg/dL (70-99) 90 mg/dL (70-99) Calcium Level 9.3 mg/dL (8.5-10.1) 8.9 mg/dL (8.5-10.1) Magnesium Level 1.8 mg/dL (1.8-2.4) Total Bilirubin 0.5 mg/dL (0.2-1.0) Aspartate Amino Transf (AST/SGOT) 13 U/L (15-37) Alanine Aminotransferase (ALT/SGPT) 10 U/L (14-59) Alkaline Phosphatase 121 U/L (46-116) Creatine Kinase 23 U/L (26-192) Creatine Kinase MB (Mass) < 0.5 ng/mL (0.0-3.6) Creatine Kinase MB Relative Index % (0-4) Troponin I Quantitative < 0.017 ng/mL (0.000-0.055) < 0.017 ng/mL (0.000-0.055) < 0.017 ng/mL (0.000-0.055) PC-Skp-L-Type Natriuretic Peptide 318 pg/mL (0-124) Total Protein 7.6 g/dL (6.4-8.2) Albumin 2.6 g/dL (3.4-5.0) Albumin/Globulin Ratio 0.5 (1.0-1.7) Lipase 1310 U/L (73-393) 836 U/L (73-393) Thyroid Stimulating Hormone (TSH) 0.383 uIU/mL (0.358-3.74) Test 07/04/17 09:15 White Blood Count 11.8 x10^3/uL (4.0-11.0) Red Blood Count 3.48 x10^6/uL (3.50-5.40) Hemoglobin 11.1 g/dL (12.0-15.5) Hematocrit 34.3 % (36.0-47.0) Mean Corpuscular Volume 99 fL (79-100) Mean Corpuscular Hemoglobin 32 pg (25-35) Mean Corpuscular Hemoglobin Concent 32 g/dL (31-37) Red Cell Distribution Width 15.0 % (11.5-14.5) Platelet Count 348 x10^3/uL (140-400) Neutrophils (%) (Auto) 75 % (31-73) Lymphocytes (%) (Auto) 10 % (24-48) Monocytes (%) (Auto) 15 % (0-9) Eosinophils (%) (Auto) 0 % (0-3) Basophils (%) (Auto) 0 % (0-3) Neutrophils # (Auto) 8.8 x10^3uL (1.8-7.7) Lymphocytes # (Auto) 1.1 x10^3/uL (1.0-4.8) Monocytes # (Auto) 1.8 x10^3/uL (0.0-1.1) Eosinophils # (Auto) 0.0 x10^3/uL (0.0-0.7) Basophils # (Auto) 0.0 x10^3/uL (0.0-0.2) Laboratory Tests Test 07/03/17 20:50 07/04/17 02:50 07/04/17 09:15 Troponin I Quantitative < 0.017 ng/mL (0.000-0.055) < 0.017 ng/mL (0.000-0.055) Sodium Level 135 mmol/L (136-145) Potassium Level 4.0 mmol/L (3.5-5.1) Chloride Level 101 mmol/L (98-107) Carbon Dioxide Level 26 mmol/L (21-32) Anion Gap 8 (6-14) Blood Urea Nitrogen 15 mg/dL (7-20) Creatinine 0.8 mg/dL (0.6-1.0) Estimated GFR (Cockcroft-Gault) 87.4 Glucose Level 90 mg/dL (70-99) Calcium Level 8.9 mg/dL (8.5-10.1) Lipase 836 U/L (73-393) White Blood Count 11.8 x10^3/uL (4.0-11.0) Red Blood Count 3.48 x10^6/uL (3.50-5.40) Hemoglobin 11.1 g/dL (12.0-15.5) Hematocrit 34.3 % (36.0-47.0) Mean Corpuscular Volume 99 fL (79-100) Mean Corpuscular Hemoglobin 32 pg (25-35) Mean Corpuscular Hemoglobin Concent 32 g/dL (31-37) Red Cell Distribution Width 15.0 % (11.5-14.5) Platelet Count 348 x10^3/uL (140-400) Neutrophils (%) (Auto) 75 % (31-73) Lymphocytes (%) (Auto) 10 % (24-48) Monocytes (%) (Auto) 15 % (0-9) Eosinophils (%) (Auto) 0 % (0-3) Basophils (%) (Auto) 0 % (0-3) Neutrophils # (Auto) 8.8 x10^3uL (1.8-7.7) Lymphocytes # (Auto) 1.1 x10^3/uL (1.0-4.8) Monocytes # (Auto) 1.8 x10^3/uL (0.0-1.1) Eosinophils # (Auto) 0.0 x10^3/uL (0.0-0.7) Basophils # (Auto) 0.0 x10^3/uL (0.0-0.2) Medications Current Medications Hydromorphone HCl (Dilaudid) 1 mg PRN Q15MIN PRN IV/SQ PAIN GREATER THAN 3/10 Last administered on 07/03/17 12:29; Start 07/03/17 at 12:00; Stop 07/04/17 at 11:59; Status DC Sodium Chloride 1,000 ml @ 1,000 mls/hr Q1H IV Last administered on 12:26; Start 07/03/17 at 11:56; Stop 07/03/17 at 12:55; Status DC Sodium Chloride (Normal Saline Flush) 10 ml QSHIFT PRN IV AFTER MEDS AND BLOOD DRAWS; Start 07/03/17 at 12:00 Ondansetron HCl (Zofran) 4 mg 1X ONCE IV Last administered on 07/03/17 12:27 ; Start 07/03/17 at 12:00; Stop 07/03/17 at 12:01; Status DC Ondansetron HCl (Zofran) 4 mg PRN Q8HRS PRN IV NAUSEA/VOMITING; Start at 14:45; Stop 07/04/17 at 14:44 Fentanyl Citrate (Fentanyl 2ml Vial) 50 mcg PRN Q1HR PRN IV PAIN; Start at 14:45; Stop 07/04/17 at 14:44 Sodium Chloride 1,000 ml 1435 STAT IV ; Start 07/03/17 at 14:35; Stop at 14:36; Status UNV Acetaminophen (Tylenol) 650 mg PRN Q4HRS PRN PO FEVER; Start 07/03/17 at 14:45 ; Stop 07/04/17 at 14:44 Sodium Chloride 1,000 ml @ 1,435 mls/hr Q42M IV ; Start 07/03/17 at 15:00; Stop 07/03/17 at 16:00; Status DC Folic Acid (Folic Acid) 1 mg DAILY PO Last administered on 07/04/17 07:48; Start 07/04/17 at 09:00 Gabapentin (Neurontin) 300 mg BID PO ; Start 07/03/17 at 21:00; Stop 07/03/17 at 21:00; Status DC Lisinopril (Prinivil) 20 mg DAILY PO Last administered on 07/04/17 07:48; Start 07/04/17 at 09:00 Multivitamins (Thera M Plus) 1 tab DAILY PO Last administered on 07/04/17 07: 48; Start 07/04/17 at 09:00 Pantoprazole Sodium (Protonix) 40 mg DAILYAC PO Last administered on 06:32; Start 07/04/17 at 07:30 Acetaminophen (Tylenol) 650 mg PRN Q6HRS PRN PO FEVER; Start 07/03/17 at 15:15 Ondansetron HCl (Zofran) 4 mg PRN Q6HRS PRN IV NAUSEA/VOMITING; Start at 15:15 Morphine Sulfate 2 mg PRN Q2HR PRN IV PAIN Last administered on 07/04/17 07: 12; Start 07/03/17 at 15:15 Tramadol HCl (Ultram) 50 mg PRN Q6HRS PRN PO PAIN; Start 07/03/17 at 15:15 Hydralazine HCl (Apresoline Inj) 10 mg PRN Q4HRS PRN IVP ELEVATED BP, SEE COMMENTS; Start 07/03/17 at 15:15 Docusate Sodium (Colace) 100 mg PRN DAILY PRN PO CONSTIPATION; Start 07/03/17 at 15:15 Albuterol Sulfate (Ventolin Neb Soln) 2.5 mg PRN Q4HRS PRN NEB SHORTNESS OF BREATH; Start 07/03/17 at 15:15 Guaifenesin (Robitussin) 200 mg PRN Q4HRS PRN PO COUGH; Start 07/03/17 at 15: 15 Sodium Chloride 1,000 ml @ 125 mls/hr DAILY IV Last administered on 10:30; Start 07/03/17 at 16:00 Enoxaparin Sodium (Lovenox 40mg Syringe) 40 mg DAILY SQ Last administered on 07:49; Start 07/03/17 at 18:00 Potassium Chloride (Klor-Con) 40 meq 1X ONCE PO Last administered on 17:24; Start 07/03/17 at 16:00; Stop 07/03/17 at 16:01; Status DC Gabapentin (Neurontin) 300 mg TID PO Last administered on 07/04/17 07:48; Start 07/03/17 at 21:00 Active Scripts Active Lisinopril 20 Mg Tablet 20 Mg PO DAILY Omeprazole 40 Mg Capsule. 1 Cap PO DAILY Reported Gabapentin 300 Mg Capsule 300 Mg PO TID Cod Liver Oil 1 Each Capsule 1 Each PO DAILY Biotin 5,000 Mcg Tab.rapdis 5,000 Mcg PO DAILY Black Cohosh Extract (Black Cohosh Root Extract) 80 Mg Capsule 40 Mg PO PRN PRN Centrum Silver Tablet (Multivits-Min/Fa/Lycopene/Lut) 1 Each Tablet 1 Each PO DAILY Vitamin B-12 5,000 Mcg Tab Sl (Cyanocobalamin/Cobamamide) 1 Each Tab.subl 1 Each SL Multivitamins (Multivitamin) 1 Each Tablet 1 Tab PO DAILY Vitamin E (Vitamin E Mixed) 400 Unit Capsule 400 Unit PO DAILY Vitamin C (Ascorbic Acid) 500 Mg Tablet 500 Mg PO DAILY Vitamin D3 (Cholecalciferol (Vitamin D3)) 400 Unit Tablet 400 Unit PO DAILY Folic Acid 1 Mg Tablet 1 Tab PO DAILY Vitals/I & O Vital Sign - Last 24 Hours 07/03/17 07/03/17 07/03/17 07/03/17 15:00 16:00 17:00 18:26 Temp 98.0 98.0 Pulse 88 82 90 Resp 18 B/P (MAP) 120/56 (77) 120/61 (80) 124/73 (90) Pulse Ox 93 94 94 O2 Delivery Room Air Room Air Room Air Room Air 07/03/17 07/03/17 07/03/17 07/04/17 19:00 20:00 23:09 02:55 Temp 98.9 99.2 98.7 98.9 99.2 98.7 Pulse 93 93 90 Resp 18 18 B/P (MAP) 141/77 (98) 130/68 (88) 138/80 (99) Pulse Ox 95 94 94 O2 Delivery Room Air Room Air Room Air Room Air 07/04/17 07/04/17 07/04/17 07/04/17 07:00 07:12 07:48 07:49 Temp 98.4 98.4 Pulse 84 84 Resp 18 B/P (MAP) 121/74 (90) 121/74 Pulse Ox 96 O2 Delivery Room Air Room Air Room Air 07/04/17 08:00 O2 Delivery Room Air GUY CHRISTIAN MD Jul 04, 2017 14:29
[2017-07-04 15:00] VITALS: BP 176/73
[2017-07-04 19:00] VITALS: BP 167/69
[2017-07-04 23:00] VITALS: BP 157/85
[2017-07-05 03:00] VITALS: BP 184/87
[2017-07-05 04:19] LABS: BASO % 0 % (0-3); EOS % 1 % (0-3); HEMATOCRIT 28.2 % (36.0-47.0); HEMOGLOBIN 9.2 g/dL (12.0-15.5); LYMPH # 1.4 x10^3/uL (1.0-4.8); LYMPH % 15 % (24-48); MEAN CORPUSCULAR HEMOGLOBIN 32 pg (25-35); MEAN CORPUSCULAR HGB CONC 33 g/dL (31-37); MEAN CORPUSCULAR VOLUME 98 fL (79-100); MONO % 18 % (0-9); NEUT % 67 % (31-73); PLATELET COUNT 322 x10^3/uL (140-400); RED BLOOD COUNT 2.87 x10^6/uL (3.50-5.40); RED CELL DISTRIBUTION WIDTH 14.9 % (11.5-14.5); WHITE BLOOD COUNT 9.1 x10^3/uL (4.0-11.0)
[2017-07-05 04:28] LABS: CALCIUM 8.7 mg/dL (8.5-10.1); CREATININE 0.7 mg/dL (0.6-1.0); GFR 101.9; POTASSIUM 3.4 mmol/L (3.5-5.1)
[2017-07-05] MEDS: PANTOPRAZOLE 40 MG TABLET.DR. PO SCH (06:21)
[2017-07-05 07:00] VITALS: BP 169/93
[2017-07-05] MEDS: ENOXAPARIN 40 MG/0.4 ML SYRINGE. SQ SCH (09:00)
[2017-07-05] MEDS: LISINOPRIL 20 MG TABLET PO SCH (09:21)
[2017-07-05] MEDS: MULTIVITAMIN with MINERAL TABLET. PO SCH (09:21)
[2017-07-05] MEDS: traMADol 50 MG TABLET PO PRN (09:21)
[2017-07-05] MEDS: GABAPENTIN 300 MG CAPSULE. PO SCH ×3 (09:21→21:22)
[2017-07-05] MEDS: FOLIC ACID 1 MG TABLET. PO SCH (09:21)
[2017-07-05] MEDS ORDERED: POTASSIUM CHLORIDE 20 MEQ TABLET.ER. PO ONE (09:45)
--- NOTE | 2017-07-05 10:43 | PDOC ---
Subjective: Subjective: No abd pain w/ clears, would like to eat more. Objective: Vital Signs: Vital Signs Date Time Temp Pulse Resp B/P (MAP) Pulse Ox O2 Delivery O2 Flow Rate FiO2 07/05/17 09:21 Room Air 07/05/17 09:21 83 184/87 07/05/17 07:00 98.1 20 97 98.1 Labs: Laboratory Tests Test 07/05/17 03:31 White Blood Count 9.1 x10^3/uL Red Blood Count 2.87 x10^6/uL Hemoglobin 9.2 g/dL Hematocrit 28.2 % Mean Corpuscular Volume 98 fL Mean Corpuscular Hemoglobin 32 pg Mean Corpuscular Hemoglobin Concent 33 g/dL Red Cell Distribution Width 14.9 % Platelet Count 322 x10^3/uL Neutrophils (%) (Auto) 67 % Lymphocytes (%) (Auto) 15 % Monocytes (%) (Auto) 18 % Eosinophils (%) (Auto) 1 % Basophils (%) (Auto) 0 % Neutrophils # (Auto) 6.1 x10^3uL Lymphocytes # (Auto) 1.4 x10^3/uL Monocytes # (Auto) 1.6 x10^3/uL Eosinophils # (Auto) 0.1 x10^3/uL Basophils # (Auto) 0.0 x10^3/uL Sodium Level 137 mmol/L Potassium Level 3.4 mmol/L Chloride Level 103 mmol/L Carbon Dioxide Level 23 mmol/L Anion Gap 11 Blood Urea Nitrogen 8 mg/dL Creatinine 0.7 mg/dL Estimated GFR (Cockcroft-Gault) 101.9 Glucose Level 76 mg/dL Calcium Level 8.7 mg/dL Lipase 652 U/L PE: GEN: NAD LUNGS: CTAB HEART: RRR ABD: S/ND/NT NEURO/PSYCH: A & O 3 A/P: Recurrent pancreatitis, alcohol related -abnormal CT w/ enlarging pancreatic cyst, lipase improving -- Abd pain resolving - ADAT. Follow-up as outpt to repeat imaging in 4-6 weeks. GLORIA KOHLI Jul 05, 2017 10:43
[2017-07-05 11:00] VITALS: BP 171/78
--- NOTE | 2017-07-05 13:51 | PDOC ---
PROGRESS NOTES Chief Complaint Chief Complaint chest pain, 2/2 trauma likely with MSK pain abd pain, acute recurrent pancreatitis with a larger cyst 51 x 41 mm recent alcoholic pancreatitis left suprarenal region/adrenal nodule 23 x 47 mm. htn gerd hypokalemmia SIRS, no infection, with organ dysfunction mild malnutrition tobaccoism leukocytosis, reactive drug abuse with marijuana plan: gi consulted cycle CE advance diet to full liquid, cont NS 100cc/h lipase daily replete K labs tmr dvt, gi ppx drug tox + marijuana CA 199 as per gi albuterol prn hope dc tmr History of Present Illness History of Present Illness ROS: no fever, chills, sob or chest pain cont having chest pain with tenderness + some left flank pain abd pain better to 2/10 lipase better to 652 Vitals Vitals Vital Signs Date Time Temp Pulse Resp B/P (MAP) Pulse Ox O2 Delivery O2 Flow Rate FiO2 07/05/17 11:01 Room Air 07/05/17 11:00 97.5 73 20 171/78 (109) 95 97.5 Physical Exam General: Alert, Oriented X3, Cooperative Heart: Regular rate, Normal S1, Normal S2 Lungs: Clear Abdomen: Normal bowel sounds, Soft, Other (middle abd mild tenderness) Extremities: No clubbing, No cyanosis Skin: No rashes Labs LABS Laboratory Tests Test 07/05/17 03:31 White Blood Count 9.1 x10^3/uL (4.0-11.0) Red Blood Count 2.87 x10^6/uL (3.50-5.40) Hemoglobin 9.2 g/dL (12.0-15.5) Hematocrit 28.2 % (36.0-47.0) Mean Corpuscular Volume 98 fL (79-100) Mean Corpuscular Hemoglobin 32 pg (25-35) Mean Corpuscular Hemoglobin Concent 33 g/dL (31-37) Red Cell Distribution Width 14.9 % (11.5-14.5) Platelet Count 322 x10^3/uL (140-400) Neutrophils (%) (Auto) 67 % (31-73) Lymphocytes (%) (Auto) 15 % (24-48) Monocytes (%) (Auto) 18 % (0-9) Eosinophils (%) (Auto) 1 % (0-3) Basophils (%) (Auto) 0 % (0-3) Neutrophils # (Auto) 6.1 x10^3uL (1.8-7.7) Lymphocytes # (Auto) 1.4 x10^3/uL (1.0-4.8) Monocytes # (Auto) 1.6 x10^3/uL (0.0-1.1) Eosinophils # (Auto) 0.1 x10^3/uL (0.0-0.7) Basophils # (Auto) 0.0 x10^3/uL (0.0-0.2) Sodium Level 137 mmol/L (136-145) Potassium Level 3.4 mmol/L (3.5-5.1) Chloride Level 103 mmol/L (98-107) Carbon Dioxide Level 23 mmol/L (21-32) Anion Gap 11 (6-14) Blood Urea Nitrogen 8 mg/dL (7-20) Creatinine 0.7 mg/dL (0.6-1.0) Estimated GFR (Cockcroft-Gault) 101.9 Glucose Level 76 mg/dL (70-99) Calcium Level 8.7 mg/dL (8.5-10.1) Lipase 652 U/L (73-393) Assessment and Plan Assessmemt and Plan Problems Medical Problems: (1) Chest pain Status: Acute (2) Pancreatitis Status: Acute Problems: Comment Review of Relevant I have reviewed the following items patrizia (where applicable) has been applied. Labs Laboratory Tests Test 07/03/17 20:50 07/04/17 02:50 07/04/17 09:15 07/05/17 03:31 Troponin I Quantitative < 0.017 ng/mL (0.000-0.055) < 0.017 ng/mL (0.000-0.055) Sodium Level 135 mmol/L (136-145) 137 mmol/L (136-145) Potassium Level 4.0 mmol/L (3.5-5.1) 3.4 mmol/L (3.5-5.1) Chloride Level 101 mmol/L (98-107) 103 mmol/L (98-107) Carbon Dioxide Level 26 mmol/L (21-32) 23 mmol/L (21-32) Anion Gap 8 (6-14) 11 (6-14) Blood Urea Nitrogen 15 mg/dL (7-20) 8 mg/dL (7-20) Creatinine 0.8 mg/dL (0.6-1.0) 0.7 mg/dL (0.6-1.0) Estimated GFR (Cockcroft-Gault) 87.4 101.9 Glucose Level 90 mg/dL (70-99) 76 mg/dL (70-99) Calcium Level 8.9 mg/dL (8.5-10.1) 8.7 mg/dL (8.5-10.1) Lipase 836 U/L (73-393) 652 U/L (73-393) White Blood Count 11.8 x10^3/uL (4.0-11.0) 9.1 x10^3/uL (4.0-11.0) Red Blood Count 3.48 x10^6/uL (3.50-5.40) 2.87 x10^6/uL (3.50-5.40) Hemoglobin 11.1 g/dL (12.0-15.5) 9.2 g/dL (12.0-15.5) Hematocrit 34.3 % (36.0-47.0) 28.2 % (36.0-47.0) Mean Corpuscular Volume 99 fL (79-100) 98 fL (79-100) Mean Corpuscular Hemoglobin 32 pg (25-35) 32 pg (25-35) Mean Corpuscular Hemoglobin Concent 32 g/dL (31-37) 33 g/dL (31-37) Red Cell Distribution Width 15.0 % (11.5-14.5) 14.9 % (11.5-14.5) Platelet Count 348 x10^3/uL (140-400) 322 x10^3/uL (140-400) Neutrophils (%) (Auto) 75 % (31-73) 67 % (31-73) Lymphocytes (%) (Auto) 10 % (24-48) 15 % (24-48) Monocytes (%) (Auto) 15 % (0-9) 18 % (0-9) Eosinophils (%) (Auto) 0 % (0-3) 1 % (0-3) Basophils (%) (Auto) 0 % (0-3) 0 % (0-3) Neutrophils # (Auto) 8.8 x10^3uL (1.8-7.7) 6.1 x10^3uL (1.8-7.7) Lymphocytes # (Auto) 1.1 x10^3/uL (1.0-4.8) 1.4 x10^3/uL (1.0-4.8) Monocytes # (Auto) 1.8 x10^3/uL (0.0-1.1) 1.6 x10^3/uL (0.0-1.1) Eosinophils # (Auto) 0.0 x10^3/uL (0.0-0.7) 0.1 x10^3/uL (0.0-0.7) Basophils # (Auto) 0.0 x10^3/uL (0.0-0.2) 0.0 x10^3/uL (0.0-0.2) Laboratory Tests Test 07/05/17 03:31 White Blood Count 9.1 x10^3/uL (4.0-11.0) Red Blood Count 2.87 x10^6/uL (3.50-5.40) Hemoglobin 9.2 g/dL (12.0-15.5) Hematocrit 28.2 % (36.0-47.0) Mean Corpuscular Volume 98 fL (79-100) Mean Corpuscular Hemoglobin 32 pg (25-35) Mean Corpuscular Hemoglobin Concent 33 g/dL (31-37) Red Cell Distribution Width 14.9 % (11.5-14.5) Platelet Count 322 x10^3/uL (140-400) Neutrophils (%) (Auto) 67 % (31-73) Lymphocytes (%) (Auto) 15 % (24-48) Monocytes (%) (Auto) 18 % (0-9) Eosinophils (%) (Auto) 1 % (0-3) Basophils (%) (Auto) 0 % (0-3) Neutrophils # (Auto) 6.1 x10^3uL (1.8-7.7) Lymphocytes # (Auto) 1.4 x10^3/uL (1.0-4.8) Monocytes # (Auto) 1.6 x10^3/uL (0.0-1.1) Eosinophils # (Auto) 0.1 x10^3/uL (0.0-0.7) Basophils # (Auto) 0.0 x10^3/uL (0.0-0.2) Sodium Level 137 mmol/L (136-145) Potassium Level 3.4 mmol/L (3.5-5.1) Chloride Level 103 mmol/L (98-107) Carbon Dioxide Level 23 mmol/L (21-32) Anion Gap 11 (6-14) Blood Urea Nitrogen 8 mg/dL (7-20) Creatinine 0.7 mg/dL (0.6-1.0) Estimated GFR (Cockcroft-Gault) 101.9 Glucose Level 76 mg/dL (70-99) Calcium Level 8.7 mg/dL (8.5-10.1) Lipase 652 U/L (73-393) Medications Current Medications Hydromorphone HCl (Dilaudid) 1 mg PRN Q15MIN PRN IV/SQ PAIN GREATER THAN 3/10 Last administered on 07/03/17 12:29; Start 07/03/17 at 12:00; Stop 07/04/17 at 11:59; Status DC Sodium Chloride 1,000 ml @ 1,000 mls/hr Q1H IV Last administered on 12:26; Start 07/03/17 at 11:56; Stop 07/03/17 at 12:55; Status DC Sodium Chloride (Normal Saline Flush) 10 ml QSHIFT PRN IV AFTER MEDS AND BLOOD DRAWS; Start 07/03/17 at 12:00 Ondansetron HCl (Zofran) 4 mg 1X ONCE IV Last administered on 07/03/17 12:27 ; Start 07/03/17 at 12:00; Stop 07/03/17 at 12:01; Status DC Ondansetron HCl (Zofran) 4 mg PRN Q8HRS PRN IV NAUSEA/VOMITING; Start at 14:45; Stop 07/04/17 at 14:45; Status DC Fentanyl Citrate (Fentanyl 2ml Vial) 50 mcg PRN Q1HR PRN IV PAIN; Start at 14:45; Stop 07/04/17 at 14:45; Status DC Sodium Chloride 1,000 ml 1435 STAT IV ; Start 07/03/17 at 14:35; Stop at 14:36; Status UNV Acetaminophen (Tylenol) 650 mg PRN Q4HRS PRN PO FEVER; Start 07/03/17 at 14:45 ; Stop 07/04/17 at 14:45; Status DC Sodium Chloride 1,000 ml @ 1,435 mls/hr Q42M IV ; Start 07/03/17 at 15:00; Stop 07/03/17 at 16:00; Status DC Folic Acid (Folic Acid) 1 mg DAILY PO Last administered on 07/05/17 09:21; Start 07/04/17 at 09:00 Gabapentin (Neurontin) 300 mg BID PO ; Start 07/03/17 at 21:00; Stop 07/03/17 at 21:00; Status DC Lisinopril (Prinivil) 20 mg DAILY PO Last administered on 07/05/17 09:21; Start 07/04/17 at 09:00 Multivitamins (Thera M Plus) 1 tab DAILY PO Last administered on 07/05/17 09: 21; Start 07/04/17 at 09:00 Pantoprazole Sodium (Protonix) 40 mg DAILYAC PO Last administered on 06:21; Start 07/04/17 at 07:30 Acetaminophen (Tylenol) 650 mg PRN Q6HRS PRN PO FEVER; Start 07/03/17 at 15:15 Ondansetron HCl (Zofran) 4 mg PRN Q6HRS PRN IV NAUSEA/VOMITING; Start at 15:15 Morphine Sulfate 2 mg PRN Q2HR PRN IV PAIN Last administered on 07/04/17 07: 12; Start 07/03/17 at 15:15 Tramadol HCl (Ultram) 50 mg PRN Q6HRS PRN PO PAIN Last administered on 09:21; Start 07/03/17 at 15:15 Hydralazine HCl (Apresoline Inj) 10 mg PRN Q4HRS PRN IVP ELEVATED BP, SEE COMMENTS; Start 07/03/17 at 15:15 Docusate Sodium (Colace) 100 mg PRN DAILY PRN PO CONSTIPATION; Start 07/03/17 at 15:15 Albuterol Sulfate (Ventolin Neb Soln) 2.5 mg PRN Q4HRS PRN NEB SHORTNESS OF BREATH; Start 07/03/17 at 15:15 Guaifenesin (Robitussin) 200 mg PRN Q4HRS PRN PO COUGH; Start 07/03/17 at 15: 15 Sodium Chloride 1,000 ml @ 125 mls/hr DAILY IV Last administered on 10:30; Start 07/03/17 at 16:00 Enoxaparin Sodium (Lovenox 40mg Syringe) 40 mg DAILY SQ Last administered on 07:49; Start 07/03/17 at 18:00 Potassium Chloride (Klor-Con) 40 meq 1X ONCE PO Last administered on 17:24; Start 07/03/17 at 16:00; Stop 07/03/17 at 16:01; Status DC Gabapentin (Neurontin) 300 mg TID PO Last administered on 07/05/17 09:21; Start 07/03/17 at 21:00 Potassium Chloride (Klor-Con) 40 meq 1X ONCE PO Last administered on 11:03; Start 07/05/17 at 09:45; Stop 07/05/17 at 09:46; Status DC Active Scripts Active Lisinopril 20 Mg Tablet 20 Mg PO DAILY Omeprazole 40 Mg Capsule. 1 Cap PO DAILY Reported Gabapentin 300 Mg Capsule 300 Mg PO TID Cod Liver Oil 1 Each Capsule 1 Each PO DAILY Biotin 5,000 Mcg Tab.rapdis 5,000 Mcg PO DAILY Black Cohosh Extract (Black Cohosh Root Extract) 80 Mg Capsule 40 Mg PO PRN PRN Centrum Silver Tablet (Multivits-Min/Fa/Lycopene/Lut) 1 Each Tablet 1 Each PO DAILY Vitamin B-12 5,000 Mcg Tab Sl (Cyanocobalamin/Cobamamide) 1 Each Tab.subl 1 Each SL Multivitamins (Multivitamin) 1 Each Tablet 1 Tab PO DAILY Vitamin E (Vitamin E Mixed) 400 Unit Capsule 400 Unit PO DAILY Vitamin C (Ascorbic Acid) 500 Mg Tablet 500 Mg PO DAILY Vitamin D3 (Cholecalciferol (Vitamin D3)) 400 Unit Tablet 400 Unit PO DAILY Folic Acid 1 Mg Tablet 1 Tab PO DAILY Vitals/I & O Vital Sign - Last 24 Hours 07/04/17 07/04/17 07/04/17 07/04/17 15:00 19:00 19:48 23:00 Temp 97.9 98.6 98.6 97.9 98.6 98.6 Pulse 94 89 89 Resp 18 18 18 B/P (MAP) 176/73 (107) 167/69 (101) 157/85 (109) Pulse Ox 95 96 96 O2 Delivery Room Air Room Air Room Air Room Air 07/05/17 07/05/17 07/05/17 07/05/17 03:00 07:00 08:00 09:21 Temp 98.3 98.1 98.3 98.1 Pulse 83 76 83 Resp 17 20 B/P (MAP) 184/87 (119) 169/93 (118) 184/87 Pulse Ox 97 O2 Delivery Room Air Room Air Room Air 07/05/17 07/05/17 07/05/17 09:21 11:00 11:01 Temp 97.5 97.5 Pulse 73 Resp 20 B/P (MAP) 171/78 (109) Pulse Ox 95 O2 Delivery Room Air Room Air Room Air GUY CHRISTIAN MD Jul 05, 2017 13:51
[2017-07-05 15:00] VITALS: BP 163/89
[2017-07-05 19:00] VITALS: BP 126/78
[2017-07-05 23:00] VITALS: BP 161/87
[2017-07-06 03:53] VITALS: BP 141/81
[2017-07-06 05:47] LABS: BASO % 1 % (0-3); EOS % 1 % (0-3); HEMATOCRIT 28.4 % (36.0-47.0); HEMOGLOBIN 9.5 g/dL (12.0-15.5); LYMPH # 1.6 x10^3/uL (1.0-4.8); LYMPH % 18 % (24-48); MEAN CORPUSCULAR HEMOGLOBIN 33 pg (25-35); MEAN CORPUSCULAR HGB CONC 34 g/dL (31-37); MEAN CORPUSCULAR VOLUME 97 fL (79-100); MONO % 18 % (0-9); NEUT % 62 % (31-73); PLATELET COUNT 338 x10^3/uL (140-400); RED BLOOD COUNT 2.91 x10^6/uL (3.50-5.40); RED CELL DISTRIBUTION WIDTH 15.2 % (11.5-14.5); WHITE BLOOD COUNT 8.6 x10^3/uL (4.0-11.0)
[2017-07-06] MEDS: PANTOPRAZOLE 40 MG TABLET.DR. PO SCH (06:06)
[2017-07-06 06:12] LABS: CALCIUM 8.8 mg/dL (8.5-10.1); CREATININE 0.7 mg/dL (0.6-1.0); GFR 101.9
[2017-07-06 07:00] VITALS: BP 171/84
[2017-07-06] MEDS: IV NORMAL SALINE 1000ML BAG 1,000 ML IV SCH (08:20)
[2017-07-06] MEDS: FOLIC ACID 1 MG TABLET. PO SCH (08:21)
[2017-07-06] MEDS: GABAPENTIN 300 MG CAPSULE. PO SCH ×2 (08:22→13:18)
[2017-07-06] MEDS: MULTIVITAMIN with MINERAL TABLET. PO SCH (08:23)
[2017-07-06] MEDS: ENOXAPARIN 40 MG/0.4 ML SYRINGE. SQ SCH (08:24)
[2017-07-06] MEDS: LISINOPRIL 20 MG TABLET PO SCH (09:14)
[2017-07-06] MEDS: traMADol 50 MG TABLET PO PRN (09:15)
--- NOTE | 2017-07-06 09:16 | PDOC ---
Subjective: Subjective: Feeling well, thinks ready to go home. No abd pain, tolerating regular diet. Objective: Vital Signs: Vital Signs Date Time Temp Pulse Resp B/P (MAP) Pulse Ox O2 Delivery O2 Flow Rate FiO2 07/06/17 07:00 98.1 81 18 171/84 (113) 96 Room Air 98.1 Labs: Laboratory Tests Test 07/06/17 04:45 White Blood Count 8.6 x10^3/uL Red Blood Count 2.91 x10^6/uL Hemoglobin 9.5 g/dL Hematocrit 28.4 % Mean Corpuscular Volume 97 fL Mean Corpuscular Hemoglobin 33 pg Mean Corpuscular Hemoglobin Concent 34 g/dL Red Cell Distribution Width 15.2 % Platelet Count 338 x10^3/uL Neutrophils (%) (Auto) 62 % Lymphocytes (%) (Auto) 18 % Monocytes (%) (Auto) 18 % Eosinophils (%) (Auto) 1 % Basophils (%) (Auto) 1 % Neutrophils # (Auto) 5.3 x10^3uL Lymphocytes # (Auto) 1.6 x10^3/uL Monocytes # (Auto) 1.6 x10^3/uL Eosinophils # (Auto) 0.1 x10^3/uL Basophils # (Auto) 0.0 x10^3/uL Sodium Level 135 mmol/L Potassium Level 4.0 mmol/L Chloride Level 103 mmol/L Carbon Dioxide Level 25 mmol/L Anion Gap 7 Blood Urea Nitrogen 5 mg/dL Creatinine 0.7 mg/dL Estimated GFR (Cockcroft-Gault) 101.9 Glucose Level 93 mg/dL Calcium Level 8.8 mg/dL Lipase 687 U/L PE: GEN: NAD LUNGS: CTAB HEART: RRR ABD: S/ND/NT NEURO/PSYCH: A & O 3 A/P: Recurrent pancreatitis, alcohol related -abnormal CT w/ enlarging pancreatic cyst -- Improved. DC per primary. Abstinence from alcohol. Repeat imaging in 4-6 weeks - she requests our office call her re: this, I will arrange. GLORIA KOHLI Jul 06, 2017 09:16
[2017-07-06 11:00] VITALS: BP 108/81
--- NOTE | 2017-07-06 13:40 | PDOC3 ---
Discharge Summary Visit Information Date of Admission: Jul 03, 2017 Date of Discharge: Jul 06, 2017 Admitting Diagnosis Comment: chest pain, 2/2 trauma likely with MSK pain abd pain, acute recurrent pancreatitis with a larger cyst 51 x 41 mm recent alcoholic pancreatitis left suprarenal region/adrenal nodule 23 x 47 mm. htn gerd hypokalemmia SIRS, no infection, with organ dysfunction mild malnutrition tobaccoism leukocytosis, reactive drug abuse with marijuana Final Diagnosis Problems Medical Problems: (1) Chest pain Status: Acute (2) Pancreatitis Status: Acute Brief Hospital Course Allergies Allergies Coded Allergies Type Severity Reaction Last Updated Verified No Known Medication Allergies Allergy Unknown 07/03/17 Yes aspirin Adverse Reaction Intermediate HX OF PERFORATED ULCERS 07/03/17 Yes Vital Signs Vital Signs Date Time Temp Pulse Resp B/P (MAP) Pulse Ox O2 Delivery O2 Flow Rate FiO2 07/06/17 11:00 98.0 77 18 108/81 (90) 92 Room Air 98.0 Lab Results Laboratory Tests Test 07/05/17 03:31 07/06/17 04:45 White Blood Count 9.1 x10^3/uL (4.0-11.0) 8.6 x10^3/uL (4.0-11.0) Red Blood Count 2.87 x10^6/uL (3.50-5.40) 2.91 x10^6/uL (3.50-5.40) Hemoglobin 9.2 g/dL (12.0-15.5) 9.5 g/dL (12.0-15.5) Hematocrit 28.2 % (36.0-47.0) 28.4 % (36.0-47.0) Mean Corpuscular Volume 98 fL (79-100) 97 fL (79-100) Mean Corpuscular Hemoglobin 32 pg (25-35) 33 pg (25-35) Mean Corpuscular Hemoglobin Concent 33 g/dL (31-37) 34 g/dL (31-37) Red Cell Distribution Width 14.9 % (11.5-14.5) 15.2 % (11.5-14.5) Platelet Count 322 x10^3/uL (140-400) 338 x10^3/uL (140-400) Neutrophils (%) (Auto) 67 % (31-73) 62 % (31-73) Lymphocytes (%) (Auto) 15 % (24-48) 18 % (24-48) Monocytes (%) (Auto) 18 % (0-9) 18 % (0-9) Eosinophils (%) (Auto) 1 % (0-3) 1 % (0-3) Basophils (%) (Auto) 0 % (0-3) 1 % (0-3) Neutrophils # (Auto) 6.1 x10^3uL (1.8-7.7) 5.3 x10^3uL (1.8-7.7) Lymphocytes # (Auto) 1.4 x10^3/uL (1.0-4.8) 1.6 x10^3/uL (1.0-4.8) Monocytes # (Auto) 1.6 x10^3/uL (0.0-1.1) 1.6 x10^3/uL (0.0-1.1) Eosinophils # (Auto) 0.1 x10^3/uL (0.0-0.7) 0.1 x10^3/uL (0.0-0.7) Basophils # (Auto) 0.0 x10^3/uL (0.0-0.2) 0.0 x10^3/uL (0.0-0.2) Sodium Level 137 mmol/L (136-145) 135 mmol/L (136-145) Potassium Level 3.4 mmol/L (3.5-5.1) 4.0 mmol/L (3.5-5.1) Chloride Level 103 mmol/L (98-107) 103 mmol/L (98-107) Carbon Dioxide Level 23 mmol/L (21-32) 25 mmol/L (21-32) Anion Gap 11 (6-14) 7 (6-14) Blood Urea Nitrogen 8 mg/dL (7-20) 5 mg/dL (7-20) Creatinine 0.7 mg/dL (0.6-1.0) 0.7 mg/dL (0.6-1.0) Estimated GFR (Cockcroft-Gault) 101.9 101.9 Glucose Level 76 mg/dL (70-99) 93 mg/dL (70-99) Calcium Level 8.7 mg/dL (8.5-10.1) 8.8 mg/dL (8.5-10.1) Lipase 652 U/L (73-393) 687 U/L (73-393) Laboratory Tests Test 07/06/17 04:45 White Blood Count 8.6 x10^3/uL (4.0-11.0) Red Blood Count 2.91 x10^6/uL (3.50-5.40) Hemoglobin 9.5 g/dL (12.0-15.5) Hematocrit 28.4 % (36.0-47.0) Mean Corpuscular Volume 97 fL (79-100) Mean Corpuscular Hemoglobin 33 pg (25-35) Mean Corpuscular Hemoglobin Concent 34 g/dL (31-37) Red Cell Distribution Width 15.2 % (11.5-14.5) Platelet Count 338 x10^3/uL (140-400) Neutrophils (%) (Auto) 62 % (31-73) Lymphocytes (%) (Auto) 18 % (24-48) Monocytes (%) (Auto) 18 % (0-9) Eosinophils (%) (Auto) 1 % (0-3) Basophils (%) (Auto) 1 % (0-3) Neutrophils # (Auto) 5.3 x10^3uL (1.8-7.7) Lymphocytes # (Auto) 1.6 x10^3/uL (1.0-4.8) Monocytes # (Auto) 1.6 x10^3/uL (0.0-1.1) Eosinophils # (Auto) 0.1 x10^3/uL (0.0-0.7) Basophils # (Auto) 0.0 x10^3/uL (0.0-0.2) Sodium Level 135 mmol/L (136-145) Potassium Level 4.0 mmol/L (3.5-5.1) Chloride Level 103 mmol/L (98-107) Carbon Dioxide Level 25 mmol/L (21-32) Anion Gap 7 (6-14) Blood Urea Nitrogen 5 mg/dL (7-20) Creatinine 0.7 mg/dL (0.6-1.0) Estimated GFR (Cockcroft-Gault) 101.9 Glucose Level 93 mg/dL (70-99) Calcium Level 8.8 mg/dL (8.5-10.1) Lipase 687 U/L (73-393) Brief Hospital Course Ms. Holman is a 66 old AA female, heavy drinker, (beer) admitted for another epsiode acute pancreatitis, lipase 680- on dc, numerous panc episodes in past. CT supports acute panc, Stayed 3 [place], BEtter, tolerating pO< cleared from GI to go home, COunselled on chronic panc - she has the literature. She has insight that she wants to quit time 32 mins > 50 % counselling] Seen and examined Discharge Information Condition at Discharge: Improved, Stable Disposition/Orders: D/C to Home Scheduled Ascorbic Acid (Vitamin C), 500 MG PO DAILY, (Reported) Biotin (Biotin), 5,000 MCG PO DAILY, (Reported) Cholecalciferol (Vitamin D3) (Vitamin D3), 400 UNIT PO DAILY, (Reported) Cod Liver Oil (Cod Liver Oil), 1 EACH PO DAILY, (Reported) Folic Acid (Folic Acid), 1 TAB PO DAILY, (Reported) Gabapentin (Gabapentin), 300 MG PO TID, (Reported) Lisinopril (Lisinopril), 20 MG PO DAILY Multivitamin (Multivitamins), 1 TAB PO DAILY, (Reported) Multivits-Min/Fa/Lycopene/Lut (Centrum Silver Tablet), 1 EACH PO DAILY, ( Reported) Omeprazole (Omeprazole), 1 CAP PO DAILY Vitamin E Mixed (Vitamin E), 400 UNIT PO DAILY, (Reported) Scheduled PRN Black Cohosh Root Extract (Black Cohosh Extract), 40 MG PO PRN PRN for SHIVERING , (Reported) Miscellaneous Medications Cyanocobalamin/Cobamamide (Vitamin B-12 5,000 Mcg Tab Sl), 1 EACH SL, (Reported) Discontinued Medications Gabapentin (Gabapentin), 300 MG PO BID, (Reported) RADHA TANNER MD Jul 06, 2017 13:40
[2017-07-06] MEDS ORDERED: TRAM50TA PO (14:23)
[2017-07-06 15:00] VITALS: BP 149/86
== END 2017-07-06 15:33 | disposition home or self-care (01) | DRG 438 ==
LOC: ER 11:36 → 5 NORTH 15:32
PROVIDERS: ADMIT Internal Medicine; ATTEND Internal Medicine
DX: K85.20 Alcohol induced acute pancreatitis without necrosis or infection (principal); R65.11 Systemic inflammatory response syndrome (SIRS) of non-infectious origin with acute organ dysfunction; E27.8 Other specified disorders of adrenal gland; E44.1 Mild protein-calorie malnutrition; E87.1 Hypo-osmolality and hyponatremia; K86.2 Cyst of pancreas; G62.9 Polyneuropathy, unspecified; K86.0 Alcohol-induced chronic pancreatitis; R07.89 Other chest pain; E87.6 Hypokalemia; F12.10 Cannabis abuse, uncomplicated; F17.210 Nicotine dependence, cigarettes, uncomplicated; I10 Essential (primary) hypertension; K21.9 Gastro-esophageal reflux disease without esophagitis; M10.9 Gout, unspecified; Z68.26 Body mass index [BMI] 26.0-26.9, adult; Z80.6 Family history of leukemia; Z82.3 Family history of stroke; Z82.49 Family history of ischemic heart disease and other diseases of the circulatory system; Z83.3 Family history of diabetes mellitus; Z90.710 Acquired absence of both cervix and uterus; Z88.8 Allergy status to other drugs, medicaments and biological substances; Z87.11 Personal history of peptic ulcer disease; Z87.440 Personal history of urinary (tract) infections
CPT/HCPCS: 36415; 71010; 74176; 80048; 80053; 80307; 81001; 82553; 83690; 83735; 83880; 84443; 84484; 85007; 85025; 86301; 87086; 93005; 94250; J1170; J1650; J2270; J2405; J7030; G0479

== ENCOUNTER 2017-07-22 02:02 | Emergency (ER) | payer OTHER ==
[~2017-07-22] VITALS: Ht 162.6 cm; Wt 68.0 kg
[~2017-07-22 02:02] MED LIST changes: +GABA-586 PO; +TRAM50TA PO
[2017-07-22] MEDS ORDERED: IV NORMAL SALINE 1000ML BAG 1,000 ML IV SCH (02:46)
[2017-07-22 02:56] LABS: BASO % 1 % (0-3); EOS % 0 % (0-3); HEMATOCRIT 28.3 % (36.0-47.0); HEMOGLOBIN 9.4 g/dL (12.0-15.5); LYMPH # 1.1 x10^3/uL (1.0-4.8); LYMPH % 12 % (24-48); MEAN CORPUSCULAR HEMOGLOBIN 31 pg (25-35); MEAN CORPUSCULAR HGB CONC 33 g/dL (31-37); MEAN CORPUSCULAR VOLUME 94 fL (79-100); MONO % 15 % (0-9); NEUT % 73 % (31-73); PLATELET COUNT 438 x10^3/uL (140-400); RED BLOOD COUNT 3.02 x10^6/uL (3.50-5.40); RED CELL DISTRIBUTION WIDTH 15.8 % (11.5-14.5); WHITE BLOOD COUNT 9.4 x10^3/uL (4.0-11.0)
[2017-07-22] MEDS: fentaNYL PF VIAL 100 MCG/2 ML VIAL IV PRN ×2 (03:00→03:20)
[2017-07-22] MEDS ORDERED: FAMOTIDINE 20 MG/2 ML VIAL IVP ONE (03:15)
[2017-07-22] MEDS ORDERED: ONDANSETRON PF 4 MG/2 ML VIAL. IV ONE (03:15)
[2017-07-22 03:18] LABS: ALBUMIN 2.3 g/dL (3.4-5.0); ALBUMIN/GLOBULIN RATIO 0.5 (1.0-1.7); CALCIUM 9.4 mg/dL (8.5-10.1); CREATININE 0.7 mg/dL (0.6-1.0); GFR 101.9; TOTAL BILIRUBIN 0.4 mg/dL (0.2-1.0); TOTAL PROTEIN 7.2 g/dL (6.4-8.2)
[2017-07-22 03:39] LABS: BILIRUBIN,URINE SMALL (NEG); GLUCOSE,URINE NEGATIVE (NEG); NITRITE,URINE NEGATIVE (NEG); PH,URINE 7.5; PROTEIN,URINE 30 mg/dL (NEG-TRACE); UROBILINOGEN,URINE >=8.0 mg/dL (0.2 mg/dL)
[2017-07-22 03:44] LABS: BACTERIA,URINE FEW /HPF (0-FEW); RBC,URINE OCC /HPF (0-2); SQUAMOUS EPITHELIAL CELL,UR FEW /LPF
[2017-07-22] MEDS ORDERED: ONDA4TAB10 SL (04:07)
--- NOTE | 2017-07-22 04:07 | PHYS DOC ---
Past Medical History Past Medical History: Anemia, GERD, Hypertension, Unknown Additional Past Medical Histor: ULCERS, NEUROPATHY Past Surgical History: Hysterectomy Additional Past Surgical Histo: LAP Alcohol Use: Occasionally Drug Use: None Adult General Chief Complaint Chief Complaint: ABDOMINAL PAIN HPI HPI Patient is a 66 year old female who presents with complaint of abdominal pain. Patient states that her symptoms started earlier today. Patient states that the pain is in her left upper quadrant and radiates towards her back. Patient has had history of pancreatitis and was admitted last month for treatment. Patient has history of alcoholism. Patient states that she stopped drinking alcohol after her previous admission. Patient denies any associated fevers. Patient states that she has been taking tramadol at home for her pain but states that she did not take any earlier today upon onset. Patient states she attempted to take the medication later this evening but states that her pain became too severe for to help. Patient denies any associated vomiting or bloody stools. Patient rates her pain as 7 out of 10. Review of Systems Review of Systems Constitutional: Denies fever or chills [] Eyes: Denies change in visual acuity, redness, or eye pain [] HENT: Denies nasal congestion or sore throat [] Respiratory: Denies cough or shortness of breath [] Cardiovascular: Denies chest pain or edema[] GI: Abdominal pain, denies vomiting or diarrhea[] : Denies dysuria or hematuria [] Musculoskeletal: Denies back pain or joint pain [] Integument: Denies rash or skin lesions [] Neurologic: Denies headache, focal weakness or sensory changes [] All other systems were reviewed and found to be within normal limits, except as documented in this note. Current Medications Current Medications Current Medications Medications (Trade) Dose Ordered Sig/Suhas Start Time Stop Time Status Last Admin Dose Admin Acetaminophen/ Hydrocodone Bitart (Lortab 5/325) 1 tab 1X ONCE 07/22/17 04:15 07/22/17 04:16 DC 07/22/17 04:02 1 TAB Famotidine (Pepcid) 20 mg 1X ONCE 07/22/17 03:15 07/22/17 03:16 DC 07/22/17 03:00 20 MG Fentanyl Citrate (Fentanyl 2ml Vial) 50 mcg PRN Q15MIN PRN 07/22/17 03:00 07/23/17 02:59 07/22/17 03:20 50 MCG Ondansetron HCl (Zofran) 4 mg 1X ONCE 07/22/17 03:15 07/22/17 03:16 DC 07/22/17 03:00 4 MG Potassium Chloride (Klor-Con) 40 meq 1X ONCE 07/22/17 04:30 07/22/17 04:31 Sodium Chloride 1,000 ml @ 1,000 mls/hr Q1H 07/22/17 02:46 07/22/17 03:45 DC 07/22/17 03:00 1,000 MLS/HR Allergies Allergies Allergies Coded Allergies Type Severity Reaction Last Updated Verified aspirin Adverse Reaction Intermediate HX OF PERFORATED ULCERS 07/03/17 Yes Physical Exam Physical Exam Constitutional: Alert, afebrile, appears in moderate discomfort. [] HENT: Normocephalic, atraumatic, bilateral external ears normal, oropharynx moist, no oral exudates, nose normal. [] Eyes: PERRLA, EOMI, conjunctiva normal, no discharge. [] Neck: Normal range of motion, no tenderness, supple, no stridor. [] Cardiovascular:Heart rate regular rhythm, no murmur [] Lungs & Thorax: Bilateral breath sounds clear to auscultation [] Abdomen: Bowel sounds normal, soft, left upper quadrant tenderness to palpation with mild guarding, no rebound tenderness, no masses, no pulsatile masses. [] Skin: Warm, dry, no erythema, no rash. [] Back: No tenderness, no CVA tenderness. [] Extremities: No tenderness, no cyanosis, no clubbing, ROM intact, no edema. [] Neurologic: Alert and oriented X 3, normal motor function, normal sensory function, no focal deficits noted. [] Current Patient Data Vital Signs Vital Signs Date Time Temp Pulse Resp B/P (MAP) Pulse Ox O2 Delivery O2 Flow Rate FiO2 07/22/17 02:24 98.7 77 18 173/77 (109) 99 Room Air 98.7 Lab Values Laboratory Tests Test 07/22/17 02:20 07/22/17 03:30 White Blood Count 9.4 x10^3/uL (4.0-11.0) Red Blood Count 3.02 x10^6/uL (3.50-5.40) L Hemoglobin 9.4 g/dL (12.0-15.5) L Hematocrit 28.3 % (36.0-47.0) L Mean Corpuscular Volume 94 fL (79-100) Mean Corpuscular Hemoglobin 31 pg (25-35) Mean Corpuscular Hemoglobin Concent 33 g/dL (31-37) Red Cell Distribution Width 15.8 % (11.5-14.5) H Platelet Count 438 x10^3/uL (140-400) H Neutrophils (%) (Auto) 73 % (31-73) Lymphocytes (%) (Auto) 12 % (24-48) L Monocytes (%) (Auto) 15 % (0-9) H Eosinophils (%) (Auto) 0 % (0-3) Basophils (%) (Auto) 1 % (0-3) Neutrophils # (Auto) 6.8 x10^3uL (1.8-7.7) Lymphocytes # (Auto) 1.1 x10^3/uL (1.0-4.8) Monocytes # (Auto) 1.4 x10^3/uL (0.0-1.1) H Eosinophils # (Auto) 0.0 x10^3/uL (0.0-0.7) Basophils # (Auto) 0.0 x10^3/uL (0.0-0.2) Sodium Level 135 mmol/L (136-145) L Potassium Level 3.0 mmol/L (3.5-5.1) L Chloride Level 97 mmol/L (98-107) L Carbon Dioxide Level 31 mmol/L (21-32) Anion Gap 7 (6-14) Blood Urea Nitrogen 10 mg/dL (7-20) Creatinine 0.7 mg/dL (0.6-1.0) Estimated GFR (Cockcroft-Gault) 101.9 BUN/Creatinine Ratio 14 (6-20) Glucose Level 100 mg/dL (70-99) H Calcium Level 9.4 mg/dL (8.5-10.1) Total Bilirubin 0.4 mg/dL (0.2-1.0) Aspartate Amino Transferase (AST) 13 U/L (15-37) L Alanine Aminotransferase (ALT) 8 U/L (14-59) L Alkaline Phosphatase 82 U/L (46-116) Total Protein 7.2 g/dL (6.4-8.2) Albumin 2.3 g/dL (3.4-5.0) L Albumin/Globulin Ratio 0.5 (1.0-1.7) L Lipase 536 U/L (73-393) H Urine Collection Type Unknown Urine Color Janice Urine Clarity Clear Urine pH 7.5 Urine Specific Withams 1.025 Urine Protein 30 mg/dL (NEG-TRACE) Urine Glucose (UA) Negative mg/dL (NEG) Urine Ketones (Stick) 15 mg/dL (NEG) Urine Blood Negative (NEG) Urine Nitrite Negative (NEG) Urine Bilirubin Small (NEG) Urine Urobilinogen Dipstick >=8.0 mg/dL (0.2 mg/dL) Urine Leukocyte Esterase Negative (NEG) Urine RBC Occ /HPF (0-2) Urine WBC 1-4 /HPF (0-4) Urine Squamous Epithelial Cells Few /LPF Urine Bacteria Few /HPF (0-FEW) Urine Hyaline Casts Occasional /HPF Urine Mucus Mod /LPF Laboratory Tests 07/22/17 02:20 Laboratory Tests 07/22/17 02:20 EKG EKG Interpreted by me: Heart rate 72, sinus rhythm, normal intervals, normal axis, no acute ST/T-wave abnormalities present[] Radiology/Procedures Radiology/Procedures Not performed[] Course & Med Decision Making Course & Med Decision Making Pertinent Labs and Imaging studies reviewed. (See chart for details) Review with IV fluids, Zofran, and fentanyl in the emergency department. Patient noted improvement in symptoms. Patient tolerating oral intake without difficulty. The patient was bridged with oral pain medication therapy in the emergency department for symptoms. Patient's blood work does show mildly elevated lipase levels consistent with ongoing pancreatitis. Advised patient to abstain from any further alcohol use and to continue with oral hydration at home. Recommended follow-up with primary doctor in 3 days for reevaluation and return to emergency department for any worsening symptoms. Patient voiced understanding and in agreement with treatment plan. Dragon Disclaimer Dragon Disclaimer This electronic medical record was generated, in whole or in part, using a voice recognition dictation system. Departure Departure Impression: Primary Impression: Acute pancreatitis Additional Impression: Hypokalemia Disposition: 01 HOME, SELF-CARE Condition: IMPROVED Referrals: JENARO TOWNSEND (PCP) Patient Instructions: Acute Pancreatitis Additional Instructions: Follow-up to primary doctor in 3 days for reevaluation. Return to emergency department for any worsening symptoms. Scripts Ondansetron (ZOFRAN ODT) 4 Mg Tab.rapdis 1 TAB SL Q8HRS Y for NAUSEA/VOMITING, #15 TAB Prov: GALA SILVEIRA MD 07/22/17 Problem Qualifiers Primary Impression: Acute pancreatitis Pancreatitis type: alcohol induced Acute pancreatitis complication: unspecified Qualified Codes: K85.20 - Alcohol induced acute pancreatitis without necrosis or infection GALA SILVEIRA MD Jul 22, 2017 04:07
[2017-07-22] MEDS ORDERED: HYDROcodone/APAP 5/325MG 1 TAB TABLET PO ONE (04:15)
[2017-07-22 04:30] VITALS: BP 144/63
[2017-07-22] MEDS ORDERED: POTASSIUM CHLORIDE 20 MEQ TABLET.ER. PO ONE (04:30)
--- NOTE | 2017-07-22 07:52 | EKG ---
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
== END 2017-07-22 04:57 | disposition home or self-care (01) ==
LOC: ER 02:02
DX: K85.20 Alcohol induced acute pancreatitis without necrosis or infection (principal); E87.6 Hypokalemia; I10 Essential (primary) hypertension; K21.9 Gastro-esophageal reflux disease without esophagitis; G62.9 Polyneuropathy, unspecified; Z90.710 Acquired absence of both cervix and uterus; Z88.6 Allergy status to analgesic agent
CPT/HCPCS: 36415; 80053; 81001; 83690; 85025; 93005; 96361; 96374; 96375; 99285; J2405; J3010; J7030; S0028

== ENCOUNTER 2017-08-06 10:46 | Inpatient (IN) | payer OTHER ==
[~2017-08-06] VITALS: Ht 162.6 cm; Wt 62.6 kg
[~2017-08-06 10:46] MED LIST changes: +ONDA4TAB10 SL
[2017-08-06 11:22] LABS: BASO # 0.1 x10^3/uL (0.0-0.2); BASO % 1 % (0-3); EOS % 0 % (0-3); HEMATOCRIT 31.8 % (36.0-47.0); HEMOGLOBIN 10.3 g/dL (12.0-15.5); LYMPH % 18 % (24-48); MEAN CORPUSCULAR HEMOGLOBIN 30 pg (25-35); MEAN CORPUSCULAR HGB CONC 32 g/dL (31-37); MEAN CORPUSCULAR VOLUME 92 fL (79-100); MONO % 5 % (0-9); NEUT % 76 % (31-73); PLATELET COUNT 481 x10^3/uL (140-400); RED BLOOD COUNT 3.46 x10^6/uL (3.50-5.40); RED CELL DISTRIBUTION WIDTH 16.8 % (11.5-14.5); WHITE BLOOD COUNT 5.7 x10^3/uL (4.0-11.0)
[2017-08-06 11:28] LABS: CALCIUM 9.6 mg/dL (8.5-10.1); CREATININE 0.8 mg/dL (0.6-1.0); GFR 87.4; POTASSIUM 3.2 mmol/L (3.5-5.1)
[2017-08-06 11:33] LABS: ALBUMIN 2.9 g/dL (3.4-5.0); ALBUMIN/GLOBULIN RATIO 0.5 (1.0-1.7); TOTAL BILIRUBIN 0.4 mg/dL (0.2-1.0); TOTAL PROTEIN 8.2 g/dL (6.4-8.2)
[2017-08-06] MEDS ORDERED: ONDANSETRON PF 4 MG/2 ML VIAL. IV ONE (11:45)
[2017-08-06] MEDS ORDERED: fentaNYL PF VIAL 100 MCG/2 ML VIAL IV ONE (11:45)
[2017-08-06] MEDS ORDERED: fentaNYL PF VIAL 100 MCG/2 ML VIAL IV PRN (11:45)
[2017-08-06] MEDS ORDERED: IV NORMAL SALINE 1000ML BAG 1,000 ML IV ONE (11:45)
--- NOTE | 2017-08-06 13:22 | RAD ---
ABDOMEN COMPLETE History:History of pancreatic pseudocyst, pain today Comparison: CT exam 07/03/2017 Findings:Multiple sonographic images of the abdomen are submitted. In the left upper quadrant of the abdomen in the region of the tail of the pancreas, there is a 13 x 8 x 7.8 x 9.8 cm hypoechoic lesion with internal septations versus adjacent multiple cysts. There is much larger than previously, previously on the order of 5 cm. Right kidney measured 9.4 x 4.7 x 4.5 cm. Left kidney measured 10.4 x 4.4 cm. There is no hydronephrosis of either kidney. There is a hypoechoic lesion of the mid right kidney up to 1.4 cm. There are 2 hypoechoic foci of the left kidney, largest up to 1.3 cm and the other more laterally up to 1.1 cm. Gallbladder is present without intraluminal abnormality, wall thickening, pericholecystic fluid. No focal hepatic lesion is demonstrated. Hepatic echotexture is within normal limits. Common bile duct is within normal limits at 0.6 cm. Abdominal aorta is not significantly dilated at up to 2.6 cm although relative ectasia of the mid segment comparing with proximal segment. There is segmental visualization of the inferior vena cava. Right lobe of the liver measured 13.7 cm longitudinal. Spleen measured up to 3.6 x 8.5 x 4 cm. Impression: 1.There is a larger presumable pseudocyst in the left upper quadrant of the abdomen in the region of tail of pancreas with internal septations versus adjacent cysts. 2. There are bilateral renal cysts.
--- NOTE | 2017-08-06 14:18 | PHYS DOC ---
Past Medical History Past Medical History: Anemia, Constipation, GERD, Hypertension, Unknown Additional Past Medical Histor: ULCERS, NEUROPATHY Past Surgical History: , Hysterectomy, Tubal ligation Additional Past Surgical Histo: LAP Alcohol Use: Sober Drug Use: None Adult General Chief Complaint Chief Complaint: ABDOMINAL PAIN HPI HPI Patient is a 66 year old female brought to the ED by her with the complaint of abdominal pain that started this morning. Patient has a history of a couple of episodes of acute pancreatitis. She had been following up with her physician in [place] and describes a worsening pancreatic pseudocyst. 2 days ago she saw what sounds like probably a GI specialist and was making plans for outpatient intervention, sounds like a drainage procedure. She was doing fine until this morning when she suddenly developed severe pain. Her pain is similar to her previous pancreatitis pain. She has had nausea and dry heaves. No diarrhea. No blood in the vomit or tool. No fever or chills. PCP Dr. Chambers in [place] Review of Systems Review of Systems Constitutional: Denies fever or chills [] Eyes: Denies change in visual acuity, redness, or eye pain [] HENT: Denies nasal congestion or sore throat [] Respiratory: Denies cough or shortness of breath [] Cardiovascular: Denies chest pain GI: As in history of present illness : Denies dysuria Musculoskeletal: Denies back pain or joint pain [] Integument: Denies rash or skin lesions [] Neurologic: Denies headache All other systems were reviewed and found to be within normal limits, except as documented in this note. Current Medications Current Medications Current Medications Medications (Trade) Dose Ordered Sig/Suhas Start Time Stop Time Status Last Admin Dose Admin Fentanyl Citrate (Fentanyl 2ml Vial) 50 mcg PRN Q15MIN PRN 08/06/17 11:45 08/07/17 11:44 08/06/17 14:28 50 MCG Ondansetron HCl (Zofran) 8 mg 1X ONCE 08/06/17 11:45 08/06/17 11:46 DC 08/06/17 12:00 8 MG Sodium Chloride 1,000 ml @ 1,000 mls/hr 1X ONCE 08/06/17 11:45 08/06/17 12:44 DC 08/06/17 12:00 1,000 MLS/HR Allergies Allergies Allergies Coded Allergies Type Severity Reaction Last Updated Verified aspirin Adverse Reaction Intermediate HX OF PERFORATED ULCERS 07/03/17 Yes Physical Exam Physical Exam Constitutional: Well developed, well nourished, tearful, very uncomfortable, vital signs stable HENT: Normocephalic, atraumatic, bilateral external ears normal, nose normal. [ ] Eyes: conjunctiva normal, no discharge. [] Neck: Normal range of motion, no stridor. [] Cardiovascular:Heart rate regular rhythm, no murmur [] Lungs & Thorax: Bilateral breath sounds clear to auscultation [] Abdomen: Bowel sounds normal, soft, no masses, no pulsatile masses. Nondistended. Tender to light touch in the epigastrium and upper abdomen, more so in the left upper quadrant. No rebound or guarding. No tenderness below the umbilicus. Skin: Warm, dry, no erythema, no rash. [] Extremities: No tenderness, no cyanosis, no clubbing, ROM intact, no edema. [] Neurologic: Alert and oriented X 3, normal motor function, no focal deficits noted. [] Current Patient Data Vital Signs Vital Signs Date Time Temp Pulse Resp B/P (MAP) Pulse Ox O2 Delivery O2 Flow Rate FiO2 08/06/17 13:59 66 189/93 (125) 95 Room Air 08/06/17 12:29 12 08/06/17 11:00 98.1 98.1 Lab Values Laboratory Tests Test 08/06/17 11:11 White Blood Count 5.7 x10^3/uL (4.0-11.0) Red Blood Count 3.46 x10^6/uL (3.50-5.40) L Hemoglobin 10.3 g/dL (12.0-15.5) L Hematocrit 31.8 % (36.0-47.0) L Mean Corpuscular Volume 92 fL (79-100) Mean Corpuscular Hemoglobin 30 pg (25-35) Mean Corpuscular Hemoglobin Concent 32 g/dL (31-37) Red Cell Distribution Width 16.8 % (11.5-14.5) H Platelet Count 481 x10^3/uL (140-400) H Neutrophils (%) (Auto) 76 % (31-73) H Lymphocytes (%) (Auto) 18 % (24-48) L Monocytes (%) (Auto) 5 % (0-9) Eosinophils (%) (Auto) 0 % (0-3) Basophils (%) (Auto) 1 % (0-3) Neutrophils # (Auto) 4.3 x10^3uL (1.8-7.7) Lymphocytes # (Auto) 1.0 x10^3/uL (1.0-4.8) Monocytes # (Auto) 0.3 x10^3/uL (0.0-1.1) Eosinophils # (Auto) 0.0 x10^3/uL (0.0-0.7) Basophils # (Auto) 0.1 x10^3/uL (0.0-0.2) Sodium Level 138 mmol/L (136-145) Potassium Level 3.2 mmol/L (3.5-5.1) L Chloride Level 100 mmol/L (98-107) Carbon Dioxide Level 28 mmol/L (21-32) Anion Gap 10 (6-14) Blood Urea Nitrogen 7 mg/dL (7-20) Creatinine 0.8 mg/dL (0.6-1.0) Estimated GFR (Cockcroft-Gault) 87.4 BUN/Creatinine Ratio 9 (6-20) Glucose Level 113 mg/dL (70-99) H Calcium Level 9.6 mg/dL (8.5-10.1) Total Bilirubin 0.4 mg/dL (0.2-1.0) Aspartate Amino Transferase (AST) 13 U/L (15-37) L Alanine Aminotransferase (ALT) 10 U/L (14-59) L Alkaline Phosphatase 98 U/L (46-116) Total Protein 8.2 g/dL (6.4-8.2) Albumin 2.9 g/dL (3.4-5.0) L Albumin/Globulin Ratio 0.5 (1.0-1.7) L Lipase 108 U/L (73-393) Laboratory Tests 08/06/17 11:11 Laboratory Tests 08/06/17 11:11 EKG EKG [] Radiology/Procedures Radiology/Procedures Abdominal ultrasound read by the radiologist. Presumable pancreatic pseudocyst in the region of the tail is larger than on previous exam CT scan 07/03. Gallbladder is present without pathology.[] Course & Med Decision Making Course & Med Decision Making Pertinent Labs and Imaging studies reviewed. (See chart for details) 66-year-old female with a history of acute pancreatitis and known pancreatic pseudocyst presents with acute onset of abdominal pain this morning. Her lipase is normal today but ultrasound demonstrates a larger pseudocyst. The patient is in a lot of pain and required IV pain control. She did get some comfort from IV medications. I believe she needs to be admitted for pain control, further evaluation, and intervention for her enlarging pancreatic pseudocyst. Patient is agreeable to that plan. I discussed the case with Dr. Liang, [facility]. He will admit the patient. I wrote bridge orders. [] Dragon Disclaimer Dragon Disclaimer This electronic medical record was generated, in whole or in part, using a voice recognition dictation system. Departure Departure Impression: Primary Impression: Abdominal pain Additional Impression: Pancreatic pseudocyst Disposition: ADMITTED INPATIENT Admitting Physician: Yelena Liang Condition: STABLE Referrals: JENARO TOWNSEND (PCP) Problem Qualifiers REG QURESHI MD Aug 06, 2017 14:18
[2017-08-06] MEDS ORDERED: ONDANSETRON PF 4 MG/2 ML VIAL. IV PRN (14:45)
[2017-08-06 15:50] VITALS: BP 186/89
[2017-08-06 15:53] VITALS: BP 186/89
[2017-08-06] MEDS: IV NORMAL SALINE 1000ML BAG 1,000 ML IV SCH (16:13)
[2017-08-06] MEDS: fentaNYL PF VIAL 100 MCG/2 ML VIAL IV PRN ×3 (16:14→22:38)
[2017-08-06] MEDS: LABETALOL 20 MG/4 ML DISP.SYRIN. IVP PRN (17:08)
--- NOTE | 2017-08-06 19:39 | HP ---
ADMIT DATE: 08/06/2017 CHIEF COMPLAINT: Abdominal pain. HISTORY OF PRESENT ILLNESS: The patient is a pleasant middle-aged -[place] female who used to drink a lot of wine and beer. She states she is kind of gotten away from that now, but she has a residual pseudocyst who was actually scheduled to be drained at another facility this week, but she has not made it. Her tummy pain is worsening, we scanned it and her pseudocyst is getting larger. I discussed the case with the ER physician. We are going to admit the patient and consult GI. She probably will be going for Interventional Radiology drain if GI agrees. PAST MEDICAL HISTORY: Alcohol issues. ALLERGIES: None. FAMILY HISTORY: Diabetes. SOCIAL HISTORY: She used to drink heavily. I think she is trying to quit. No smoking or drugs. She is retired. 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 She is . MEDICATIONS: Reviewed, please refer the MRAD. REVIEW OF SYSTEMS: GENERAL: No history of weight change, weakness or fevers. SKIN: No bruising, hair changes or rashes. EYES: No blurred, double or loss of vision. NOSE AND THROAT: No history of nosebleeds, hoarseness or sore throat. HEART: No history of palpitations, chest pain or shortness of breath on exertion. LUNGS: Denies cough, hemoptysis, wheezing or shortness of breath. GASTROINTESTINAL: She complains of abdominal pain. GENITOURINARY: No history of frequency, urgency, hesitancy or nocturia. NEUROLOGIC: Denies history of numbness, tingling, tremor or weakness. PSYCHIATRIC: No history of panic, anxiety or depression. ENDOCRINE: No history of heat or cold intolerance, polyuria or polydipsia. EXTREMITIES: Denies muscle weakness, joint pain, pain on walking or stiffness. PHYSICAL EXAMINATION: VITAL SIGNS: Temperature afebrile, pulse 98, respirations 18, blood pressure 142/91. GENERAL: She is alert, cooperative. HEART: Normal S1, S2. LUNGS: Clear. ABDOMEN: Soft, positive bowel sounds, deep, tender in the upper quadrants. EXTREMITIES: No edema. SKIN: No rashes. ENDOCRINE: No thyromegaly. LYMPHATICS: No cervical nodes. HEMATOPOIETIC: No bruising. ASSESSMENT AND PLAN: Pancreatitis and pseudocyst. The patient has been admitted. We will consult GI and we might need to have Interventional Radiology drain if GI agrees. N.p.o., IV fluids, p.r.n. narcotics. Continue home medicines. IRMA UPTON DO DR: ISABELLA/marzena JOB#: [id number] / [id number]
[2017-08-06 19:55] VITALS: BP 154/77
[2017-08-06 23:48] VITALS: BP 185/90
[2017-08-07] MEDS: fentaNYL PF VIAL 100 MCG/2 ML VIAL IV PRN ×4 (02:09→10:40)
[2017-08-07 03:02] VITALS: BP 172/79
[2017-08-07] MEDS: IV NORMAL SALINE 1000ML BAG 1,000 ML IV SCH (04:20)
[2017-08-07 06:55] VITALS: BP 180/85
--- NOTE | 2017-08-07 10:17 | PDOC2 ---
GI CONSULT Reason For Consult: Pancreatic pseudocyst HPI: HPI: 66 y/o female who we have seen before. H/o alcoholic pancreatitis w/ enlarging pancreatic tail cyst. Readmitted through ER. History is a bit difficult, seems to have some memory issues this time. Has pain - describes right flank pain wrapping under right breast to epigastrium, also still has left-sided chest wall pain (h/o fall a couple months ago). Unclear when pain recurred, seems over the past couple days. No n/v, diarrhea, constipation, or bleeding. She had a procedure, thinks EGD, as an outpatient at [facility] on Monday. She was "out of it" but says a doctor her fiance she needed a "stent" placed for drainage of pancreatic pseudocyst. H/o GERD controlled w/ omeprazole QD, h/o (NSAID-related) requiring laparotomy in the , reports colonoscopy within a few years. No gallbladder or liver history. Says no alcohol in 1.5 months. US showed enlarging pseudocyst. PMH: PMH: HTN, peripheral neuropathy, GERD, PUD, alcoholism, pancreatitis, OA, gout, UTIs , hysterectomy, laparotomy for FH: Family History: Cancer (leukemia), CVA, DM, Hypertension, Thyroid dysfunction Social History: Smoke: <1 pack per day ALCOHOL: other (h/o alcoholism, sober 1.5 months) Drugs: Marijuana ROS: GEN: Denies fevers, chills, sweats HEENT: Denies blurred vision, sore throat CV: +left chest pain RESP: Denies shortness of air, cough GI: Per HPI : Denies hematuria, dysuria ENDO: Denies weight changes NEURO: +memory problems MSK: Denies weakness, joint pain/swelling SKIN: Denies jaundice, pruritus Vitals: Vitals: Vital Signs Date Time Temp Pulse Resp B/P (MAP) Pulse Ox O2 Delivery O2 Flow Rate FiO2 08/07/17 09:56 97 Room Air 08/07/17 06:55 98.6 72 19 180/85 (116) 98.6 Labs: Labs: Laboratory Tests Test 08/06/17 11:11 White Blood Count 5.7 x10^3/uL (4.0-11.0) Red Blood Count 3.46 x10^6/uL (3.50-5.40) Hemoglobin 10.3 g/dL (12.0-15.5) Hematocrit 31.8 % (36.0-47.0) Mean Corpuscular Volume 92 fL (79-100) Mean Corpuscular Hemoglobin 30 pg (25-35) Mean Corpuscular Hemoglobin Concent 32 g/dL (31-37) Red Cell Distribution Width 16.8 % (11.5-14.5) Platelet Count 481 x10^3/uL (140-400) Neutrophils (%) (Auto) 76 % (31-73) Lymphocytes (%) (Auto) 18 % (24-48) Monocytes (%) (Auto) 5 % (0-9) Eosinophils (%) (Auto) 0 % (0-3) Basophils (%) (Auto) 1 % (0-3) Neutrophils # (Auto) 4.3 x10^3uL (1.8-7.7) Lymphocytes # (Auto) 1.0 x10^3/uL (1.0-4.8) Monocytes # (Auto) 0.3 x10^3/uL (0.0-1.1) Eosinophils # (Auto) 0.0 x10^3/uL (0.0-0.7) Basophils # (Auto) 0.1 x10^3/uL (0.0-0.2) Sodium Level 138 mmol/L (136-145) Potassium Level 3.2 mmol/L (3.5-5.1) Chloride Level 100 mmol/L (98-107) Carbon Dioxide Level 28 mmol/L (21-32) Anion Gap 10 (6-14) Blood Urea Nitrogen 7 mg/dL (7-20) Creatinine 0.8 mg/dL (0.6-1.0) Estimated GFR (Cockcroft-Gault) 87.4 BUN/Creatinine Ratio 9 (6-20) Glucose Level 113 mg/dL (70-99) Calcium Level 9.6 mg/dL (8.5-10.1) Total Bilirubin 0.4 mg/dL (0.2-1.0) Aspartate Amino Transf (AST/SGOT) 13 U/L (15-37) Alanine Aminotransferase (ALT/SGPT) 10 U/L (14-59) Alkaline Phosphatase 98 U/L (46-116) Total Protein 8.2 g/dL (6.4-8.2) Albumin 2.9 g/dL (3.4-5.0) Albumin/Globulin Ratio 0.5 (1.0-1.7) Lipase 108 U/L (73-393) Allergies: Coded Allergies: aspirin (Verified Adverse Reaction, Intermediate, HX OF PERFORATED ULCERS , 07/03/17) Medications: Current Medications Medications (Trade) Dose Ordered Sig/Suhas Route PRN Reason Start Time Stop Time Status Last Admin Dose Admin Fentanyl Citrate (Fentanyl 2ml Vial) 100 mcg 1X ONCE IV 08/06/17 11:45 08/06/17 11:46 DC 08/06/17 12:01 Ondansetron HCl (Zofran) 8 mg 1X ONCE IV 08/06/17 11:45 08/06/17 11:46 DC 08/06/17 12:00 Fentanyl Citrate (Fentanyl 2ml Vial) 50 mcg PRN Q15MIN PRN IV PAIN GREATER THAN 3/10 08/06/17 11:45 08/07/17 11:44 08/06/17 14:28 Sodium Chloride 1,000 ml @ 1,000 mls/hr 1X ONCE IV 08/06/17 11:45 08/06/17 12:44 DC 08/06/17 12:00 Fentanyl Citrate (Fentanyl 2ml Vial) 50 mcg PRN Q2HR PRN IV PAIN 08/06/17 14:45 08/07/17 14:44 08/07/17 08:16 Sodium Chloride 1,000 ml @ 75 mls/hr [id number] IV 08/06/17 15:00 08/07/17 14:59 08/07/17 04:20 Labetalol HCl (Normodyne) 20 mg PRN Q6HRS PRN IVP HYPERTENSION, SEE COMMENTS 08/06/17 16:45 08/06/17 17:08 Imaging: Imaging: Abd US Findings:Multiple sonographic images of the abdomen are submitted. In the left upper quadrant of the abdomen in the region of the tail of the pancreas, there is a 13 x 8 x 7.8 x 9.8 cm hypoechoic lesion with internal septations versus adjacent multiple cysts. There is much larger than previously, previously on the order of 5 cm. Right kidney measured 9.4 x 4.7 x 4.5 cm. Left kidney measured 10.4 x 4.4 cm. There is no hydronephrosis of either kidney. There is a hypoechoic lesion of the mid right kidney up to 1.4 cm. There are 2 hypoechoic foci of the left kidney, largest up to 1.3 cm and the other more laterally up to 1.1 cm. Gallbladder is present without intraluminal abnormality, wall thickening, pericholecystic fluid. No focal hepatic lesion is demonstrated. Hepatic echotexture is within normal limits. Common bile duct is within normal limits at 0.6 cm. Abdominal aorta is not significantly dilated at up to 2.6 cm although relative ectasia of the mid segment comparing with proximal segment. There is segmental visualization of the inferior vena cava. Right lobe of the liver measured 13.7 cm longitudinal. Spleen measured up to 3.6 x 8.5 x 4 cm. Impression: 1.There is a larger presumable pseudocyst in the left upper quadrant of the abdomen in the region of tail of pancreas with internal septations versus adjacent cysts. 2. There are bilateral renal cysts. PE: GEN: NAD HEENT: Atraumatic, PERRL LUNGS: diminished HEART: RRR ABD: BS+, epigastric discomfort, right flank pain toward right breast, tenderness over ribs EXTREMITY: No edema SKIN: No rashes, no jaundice NEURO/PSYCH: A & O 3, different than when I've seen her previously, can't recall certain details of recent events A/P: A/P: Enlarging pancreatic pseudocyst Epigastric pain, right flank/rib pain, left chest wall pain H/o alcohol abuse - sober ~1 month H/o GERD, PUD s/p laparotomy () - ?EGD last week @ [facility], on PPI CRC screen - last colonoscopy several years ago Anemia ?memory loss - new -- Reviewed w/ Dr. Pedro. Difficult history today, alone in room - hopefully fiance/family around later to help. Try to get records from [facility] re: EGD. Repeat CT, ask surgery to see. 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 GLORIA KOHLI Aug 07, 2017 10:16
[2017-08-07 10:24] VITALS: BP 162/75
[2017-08-07] MEDS ORDERED: IOHEXOL 240 MG/ML 50ML VIAL. PO ONE (12:45)
[2017-08-07] MEDS ORDERED: CONTRAST GIVEN MC PRN (12:45)
[2017-08-07] MEDS ORDERED: IOHEXOL 300 MG/ML 100ML VIAL. IV ONE (12:45)
[2017-08-07] MEDS: POTASSIUM CL 30MEQ D5-0.45NACL 1,000 ML IV SCH ×2 (12:48→22:13)
[2017-08-07] MEDS: valACYclovir 500 MG TABLET. PO SCH ×2 (12:49→21:32)
--- NOTE | 2017-08-07 13:06 | PDOC2 ---
TELLO SANCHEZ Susy LOG DATA TECHNICIAN 08/07/17 1306: CONSULT Date of Consult Date of Consult DATE: 08/07/17 TIME: 13:00 Reason for Consult Reason for Consult: pseudocyst Referring Physician Referring Physician: Dr Jurado Identification/Chief Complaint Chief Complaint RUQ/back pain Problems: Source Source: Chart review, Patient History of Present Illness Reason for Visit: RUQ/back pain acute onset yesterday. Today developed rash to that same area. Pain is intense. This is not like her pancreatitis pain. No nausea or emesis. Past Medical History Cardiovascular: HTN CENTRAL NERVOUS SYSTEM: Periperal neuropathy Musculoskeletal: Osteoarthritis Rheumatologic: Gout Infectious disease: Other Past Surgical History Past Surgical History: Hysterectomy, Other Family History Family History: Cancer, Diabetes, Hypertension, Stroke, Other Social History <1 pack per day ALCOHOL: other Drugs: Marijuana Lives: with Family Current Problem List Problem List Problems Medical Problems: (1) Abdominal pain Status: Acute (2) Pancreatic pseudocyst Status: Acute Current Medications Current Medications Current Medications Fentanyl Citrate (Fentanyl 2ml Vial) 100 mcg 1X ONCE IV Last administered on 08/06/17 12:01; Start 08/06/17 at 11:45; Stop 08/06/17 at 11:46; Status DC Ondansetron HCl (Zofran) 8 mg 1X ONCE IV Last administered on 08/06/17 12:00 ; Start 08/06/17 at 11:45; Stop 08/06/17 at 11:46; Status DC Fentanyl Citrate (Fentanyl 2ml Vial) 50 mcg PRN Q15MIN PRN IV PAIN GREATER THAN 3/10 Last administered on 08/06/17 14:28; Start 08/06/17 at 11:45; Stop 08/07/17 at 11:44; Status DC Sodium Chloride 1,000 ml @ 1,000 mls/hr 1X ONCE IV Last administered on 08/06 12:00; Start 08/06/17 at 11:45; Stop 08/06/17 at 12:44; Status DC Ondansetron HCl (Zofran) 4 mg PRN Q8HRS PRN IV NAUSEA/VOMITING; Start at 14:45; Stop 08/07/17 at 14:44 Fentanyl Citrate (Fentanyl 2ml Vial) 50 mcg PRN Q2HR PRN IV PAIN Last administered on 08/07/17 10:40; Start 08/06/17 at 14:45; Stop 08/07/17 at 14 :44 Sodium Chloride 1,000 ml @ 75 mls/hr [id number] IV Last administered on 04:20; Start 08/06/17 at 15:00; Stop 08/07/17 at 11:57; Status DC Labetalol HCl (Normodyne) 20 mg PRN Q6HRS PRN IVP HYPERTENSION, SEE COMMENTS Last administered on 08/06/17 17:08; Start 08/06/17 at 16:45 Potassium Chloride/Dextrose/ Sod Cl 1,000 ml @ 100 mls/hr Q10H IV Last administered on 08/07/17 12:48; Start 08/07/17 at 12:00 Valacyclovir HCl (Valtrex) 1,000 mg BID PO Last administered on 08/07/17 12: 49; Start 08/07/17 at 13:00 Iohexol (Omnipaque 240 Mg/ml) 30 ml 1X ONCE PO ; Start 08/07/17 at 12:45; Stop 08/07/17 at 12:46; Status DC Iohexol (Omnipaque 300 Mg/ml) 75 ml 1X ONCE IV ; Start 08/07/17 at 12:45; Stop 08/07/17 at 12:46; Status DC Info (Do NOT chart on this entry -- for MONITORING) 1 each PRN DAILY PRN MC SEE COMMENTS; Start 08/07/17 at 12:45; Stop 08/09/17 at 12:44 Active Scripts Active Zofran Odt (Ondansetron) 4 Mg Tab.rapdis 1 Tab SL Q8HRS PRN Lisinopril 20 Mg Tablet 20 Mg PO DAILY Omeprazole 40 Mg Capsule. 1 Cap PO DAILY Reported Tramadol Hcl 50 Mg Tablet 1 Tab PO PRN Q6HRS Gabapentin 300 Mg Capsule 300 Mg PO TID Cod Liver Oil 1 Each Capsule 1 Each PO DAILY Biotin 5,000 Mcg Tab.rapdis 5,000 Mcg PO DAILY Black Cohosh Extract (Black Cohosh Root Extract) 80 Mg Capsule 40 Mg PO PRN PRN Centrum Silver Tablet (Multivits-Min/Fa/Lycopene/Lut) 1 Each Tablet 1 Each PO DAILY Vitamin B-12 5,000 Mcg Tab Sl (Cyanocobalamin/Cobamamide) 1 Each Tab.subl 1 Each SL Multivitamins (Multivitamin) 1 Each Tablet 1 Tab PO DAILY Vitamin E (Vitamin E Mixed) 400 Unit Capsule 400 Unit PO DAILY Vitamin C (Ascorbic Acid) 500 Mg Tablet 500 Mg PO DAILY Vitamin D3 (Cholecalciferol (Vitamin D3)) 400 Unit Tablet 400 Unit PO DAILY Folic Acid 1 Mg Tablet 1 Tab PO DAILY Allergies Allergies: Coded Allergies: aspirin (Verified Adverse Reaction, Intermediate, HX OF PERFORATED ULCERS , 07/03/17) ROS General: No: Chills, Other (fevers) PSYCHOLOGICAL ROS: No: Anxiety, Depression Eyes: No Blurry vision, No Double vision HEENT: No: Heacaches, Sore Throat Hematological and Lymphatic: No: Bleeding Problems, Blood Clots Respiratory: No: Cough, Shortness of breath Cardiovascular: No Chest Pain, No Palpitations Gastrointestinal: No Diarrhea Genitourinary: No Dysuria, No Hematuria Musculoskeletal: Yes Other (see hpi) Neurological: No Confusion, No Impaired Coord/balance Skin: Yes Other (see hpi) Physical Exam General: Alert, Oriented X3, Cooperative, No acute distress HEENT: PERRLA, Mucous membr. moist/pink Lungs: Clear to auscultation, Normal air movement Heart: Regular rate, Normal S1, Normal S2, No murmurs Abdomen: Soft, Other (tender over RUQ where vesicles are) Extremities: No clubbing, No cyanosis Skin: Other (vesicles to RUQ/right back--tender to touch, no LUQ pain) Neuro: Normal speech, Sensation intact Psych/Mental Status: Mental status NL, Mood NL MUSCULOSKELETAL: No deformity, No swelling Vitals VITALS Vital Signs Date Time Temp Pulse Resp B/P (MAP) Pulse Ox O2 Delivery O2 Flow Rate FiO2 08/07/17 11:34 99 Room Air 08/07/17 10:24 97.8 58 18 162/75 (104) 97.8 Labs Labs Laboratory Tests Test 08/06/17 11:11 White Blood Count 5.7 x10^3/uL (4.0-11.0) Red Blood Count 3.46 x10^6/uL (3.50-5.40) Hemoglobin 10.3 g/dL (12.0-15.5) Hematocrit 31.8 % (36.0-47.0) Mean Corpuscular Volume 92 fL (79-100) Mean Corpuscular Hemoglobin 30 pg (25-35) Mean Corpuscular Hemoglobin Concent 32 g/dL (31-37) Red Cell Distribution Width 16.8 % (11.5-14.5) Platelet Count 481 x10^3/uL (140-400) Neutrophils (%) (Auto) 76 % (31-73) Lymphocytes (%) (Auto) 18 % (24-48) Monocytes (%) (Auto) 5 % (0-9) Eosinophils (%) (Auto) 0 % (0-3) Basophils (%) (Auto) 1 % (0-3) Neutrophils # (Auto) 4.3 x10^3uL (1.8-7.7) Lymphocytes # (Auto) 1.0 x10^3/uL (1.0-4.8) Monocytes # (Auto) 0.3 x10^3/uL (0.0-1.1) Eosinophils # (Auto) 0.0 x10^3/uL (0.0-0.7) Basophils # (Auto) 0.1 x10^3/uL (0.0-0.2) Sodium Level 138 mmol/L (136-145) Potassium Level 3.2 mmol/L (3.5-5.1) Chloride Level 100 mmol/L (98-107) Carbon Dioxide Level 28 mmol/L (21-32) Anion Gap 10 (6-14) Blood Urea Nitrogen 7 mg/dL (7-20) Creatinine 0.8 mg/dL (0.6-1.0) Estimated GFR (Cockcroft-Gault) 87.4 BUN/Creatinine Ratio 9 (6-20) Glucose Level 113 mg/dL (70-99) Calcium Level 9.6 mg/dL (8.5-10.1) Total Bilirubin 0.4 mg/dL (0.2-1.0) Aspartate Amino Transf (AST/SGOT) 13 U/L (15-37) Alanine Aminotransferase (ALT/SGPT) 10 U/L (14-59) Alkaline Phosphatase 98 U/L (46-116) Total Protein 8.2 g/dL (6.4-8.2) Albumin 2.9 g/dL (3.4-5.0) Albumin/Globulin Ratio 0.5 (1.0-1.7) Lipase 108 U/L (73-393) Assessment/Plan Assessment/Plan RUQ/back pain, rash--appears shingles alcoholic pancreatitis--US showing pseudocyst, no symptoms CT pending YANELI SANTAMARIA MD 08/07/17 1549: CONSULT Allergies Allergies: Coded Allergies: aspirin (Verified Adverse Reaction, Intermediate, HX OF PERFORATED ULCERS , 07/03/17) Assessment/Plan Assessment/Plan Pt seen and examined. Agree with Ms. Sanchez's note Pt with c/o right flank pain, c/w shingles abd soft reviewed CT with radiology would offer cystgastrostomy pending shingles resolution Thanks for consult! TELLO SANCHEZ APRN Aug 07, 2017 13:06 YANELI SANTAMARIA MD Aug 07, 2017 15:49
[2017-08-07 14:56] VITALS: BP 184/83
--- NOTE | 2017-08-07 14:59 | RAD ---
CT abdomen and pelvis with contrast Indication: Hepatic cirrhosis, increased in size. Technique: CT abdomen and pelvis with 75 mL of Omnipaque 300 and by mouth Omnipaque 240 50 mL with multi planar reformats. Comparison: CT abdomen and pelvis from 07/03/2017 Findings: Heart is normal in size. No pericardial effusion. Trace left pleural effusion. Clear lung bases. Liver is normal in morphology without focal hepatic lesion. Spleen is within normal limits. There is a linear lucency through the medial aspect of the spleen which may represent splenic cleft. No radiopaque gallstones. No pericholecystic fluid or gallbladder wall thickening. Adrenal glands show no nodularity. The pancreas is within normal limits. There is a lobulated fluid collection in the left upper quadrant in the lesser sac measuring 9.4 x 5.1 x 11.0 cm (series 2 image 25) (series 4 image 21), previously measuring 5.3 x 3.6 x 3.6 cm. There is significant mass effect on the greater curvature of the stomach. This collection has thick green and central fluid density. The collection extends to the splenic hilum. There is broad interface with the distal splenic artery and vein which are patent. Subcentimeter low attenuating lesions in the kidneys most likely simple cysts. No suspicious enhancing renal lesion or hydronephrosis. No pathologically enlarged retroperitoneal or pelvic adenopathy. No bowel obstruction. Normal appendix. Diffuse atherosclerotic disease of the abdominal aorta and bilateral iliac arteries. Uterus is not visualized likely surgically absent. No solid adnexal lesions. There is within normal limits. Omental fat-containing supraumbilical hernia with neck measuring 1.7 cm. No suspicious bony lesion. Degenerative disc disease noted at T9-T10 level. Impression: Interval increase in the size of pancreatic pseudocyst when compared to previous study from 07/03/2017. PQRS Compliance Statement: One or more of the following individualized dose reduction techniques were utilized for this examination: 1. Automated exposure control 2. Adjustment of the mA and/or kV according to patient size 3. Use of iterative reconstruction technique
--- NOTE | 2017-08-07 15:24 | PDOC ---
PROGRESS NOTES Chief Complaint Chief Complaint back pain shingles, Pancreatitis and pseudocyst. weakness, debility History of Present Illness History of Present Illness back pain, puritis no event Vitals Vitals Vital Signs Date Time Temp Pulse Resp B/P (MAP) Pulse Ox O2 Delivery O2 Flow Rate FiO2 08/07/17 14:56 98.1 69 18 184/83 (116) 97 Room Air 98.1 Physical Exam General: Alert, Oriented X3, Cooperative, No acute distress Heart: Regular rate, Normal S1, Normal S2, No murmurs Lungs: Clear Abdomen: Soft, Other (tender over RUQ where vesicles are) Extremities: No clubbing, No cyanosis Skin: Other (vesicles to RUQ/right back--tender to touch, no LUQ pain) Review of Systems Review of Systems no n.v.d puritis and skin pain to right flank, dermatomal Assessment and Plan Assessmemt and Plan Problems Medical Problems: (1) Abdominal pain Status: Acute (2) Pancreatic pseudocyst Status: Acute Problems: Comment Review of Relevant I have reviewed the following items patrizia (where applicable) has been applied. Labs Laboratory Tests Test 08/06/17 11:11 White Blood Count 5.7 x10^3/uL (4.0-11.0) Red Blood Count 3.46 x10^6/uL (3.50-5.40) Hemoglobin 10.3 g/dL (12.0-15.5) Hematocrit 31.8 % (36.0-47.0) Mean Corpuscular Volume 92 fL (79-100) Mean Corpuscular Hemoglobin 30 pg (25-35) Mean Corpuscular Hemoglobin Concent 32 g/dL (31-37) Red Cell Distribution Width 16.8 % (11.5-14.5) Platelet Count 481 x10^3/uL (140-400) Neutrophils (%) (Auto) 76 % (31-73) Lymphocytes (%) (Auto) 18 % (24-48) Monocytes (%) (Auto) 5 % (0-9) Eosinophils (%) (Auto) 0 % (0-3) Basophils (%) (Auto) 1 % (0-3) Neutrophils # (Auto) 4.3 x10^3uL (1.8-7.7) Lymphocytes # (Auto) 1.0 x10^3/uL (1.0-4.8) Monocytes # (Auto) 0.3 x10^3/uL (0.0-1.1) Eosinophils # (Auto) 0.0 x10^3/uL (0.0-0.7) Basophils # (Auto) 0.1 x10^3/uL (0.0-0.2) Sodium Level 138 mmol/L (136-145) Potassium Level 3.2 mmol/L (3.5-5.1) Chloride Level 100 mmol/L (98-107) Carbon Dioxide Level 28 mmol/L (21-32) Anion Gap 10 (6-14) Blood Urea Nitrogen 7 mg/dL (7-20) Creatinine 0.8 mg/dL (0.6-1.0) Estimated GFR (Cockcroft-Gault) 87.4 BUN/Creatinine Ratio 9 (6-20) Glucose Level 113 mg/dL (70-99) Calcium Level 9.6 mg/dL (8.5-10.1) Total Bilirubin 0.4 mg/dL (0.2-1.0) Aspartate Amino Transf (AST/SGOT) 13 U/L (15-37) Alanine Aminotransferase (ALT/SGPT) 10 U/L (14-59) Alkaline Phosphatase 98 U/L (46-116) Total Protein 8.2 g/dL (6.4-8.2) Albumin 2.9 g/dL (3.4-5.0) Albumin/Globulin Ratio 0.5 (1.0-1.7) Lipase 108 U/L (73-393) Medications Current Medications Fentanyl Citrate (Fentanyl 2ml Vial) 100 mcg 1X ONCE IV Last administered on 08/06/17 12:01; Start 08/06/17 at 11:45; Stop 08/06/17 at 11:46; Status DC Ondansetron HCl (Zofran) 8 mg 1X ONCE IV Last administered on 08/06/17 12:00 ; Start 08/06/17 at 11:45; Stop 08/06/17 at 11:46; Status DC Fentanyl Citrate (Fentanyl 2ml Vial) 50 mcg PRN Q15MIN PRN IV PAIN GREATER THAN 3/10 Last administered on 08/06/17 14:28; Start 08/06/17 at 11:45; Stop 08/07/17 at 11:44; Status DC Sodium Chloride 1,000 ml @ 1,000 mls/hr 1X ONCE IV Last administered on 08/06 12:00; Start 08/06/17 at 11:45; Stop 08/06/17 at 12:44; Status DC Ondansetron HCl (Zofran) 4 mg PRN Q8HRS PRN IV NAUSEA/VOMITING; Start at 14:45; Stop 08/07/17 at 14:44; Status DC Fentanyl Citrate (Fentanyl 2ml Vial) 50 mcg PRN Q2HR PRN IV PAIN Last administered on 08/07/17 10:40; Start 08/06/17 at 14:45; Stop 08/07/17 at 14 :44; Status DC Sodium Chloride 1,000 ml @ 75 mls/hr [id number] IV Last administered on 04:20; Start 08/06/17 at 15:00; Stop 08/07/17 at 11:57; Status DC Labetalol HCl (Normodyne) 20 mg PRN Q6HRS PRN IVP HYPERTENSION, SEE COMMENTS Last administered on 08/06/17 17:08; Start 08/06/17 at 16:45 Potassium Chloride/Dextrose/ Sod Cl 1,000 ml @ 100 mls/hr Q10H IV Last administered on 08/07/17 12:48; Start 08/07/17 at 12:00 Valacyclovir HCl (Valtrex) 1,000 mg BID PO Last administered on 08/07/17 12: 49; Start 08/07/17 at 13:00 Iohexol (Omnipaque 240 Mg/ml) 30 ml 1X ONCE PO Last administered on 12:45; Start 08/07/17 at 12:45; Stop 08/07/17 at 12:46; Status DC Iohexol (Omnipaque 300 Mg/ml) 75 ml 1X ONCE IV Last administered on 14:11; Start 08/07/17 at 12:45; Stop 08/07/17 at 12:46; Status DC Info (Do NOT chart on this entry -- for MONITORING) 1 each PRN DAILY PRN MC SEE COMMENTS; Start 08/07/17 at 12:45; Stop 11/29/17 at 12:44 Active Scripts Active Zofran Odt (Ondansetron) 4 Mg Tab.rapdis 1 Tab SL Q8HRS PRN Lisinopril 20 Mg Tablet 20 Mg PO DAILY Omeprazole 40 Mg Capsule. 1 Cap PO DAILY Reported Tramadol Hcl 50 Mg Tablet 1 Tab PO PRN Q6HRS Gabapentin 300 Mg Capsule 300 Mg PO TID Cod Liver Oil 1 Each Capsule 1 Each PO DAILY Biotin 5,000 Mcg Tab.rapdis 5,000 Mcg PO DAILY Black Cohosh Extract (Black Cohosh Root Extract) 80 Mg Capsule 40 Mg PO PRN PRN Centrum Silver Tablet (Multivits-Min/Fa/Lycopene/Lut) 1 Each Tablet 1 Each PO DAILY Vitamin B-12 5,000 Mcg Tab Sl (Cyanocobalamin/Cobamamide) 1 Each Tab.subl 1 Each SL Multivitamins (Multivitamin) 1 Each Tablet 1 Tab PO DAILY Vitamin E (Vitamin E Mixed) 400 Unit Capsule 400 Unit PO DAILY Vitamin C (Ascorbic Acid) 500 Mg Tablet 500 Mg PO DAILY Vitamin D3 (Cholecalciferol (Vitamin D3)) 400 Unit Tablet 400 Unit PO DAILY Folic Acid 1 Mg Tablet 1 Tab PO DAILY Vitals/I & O Vital Sign - Last 24 Hours 08/06/17 08/06/17 08/06/17 08/06/17 15:50 15:53 16:14 16:44 Temp 98.7 98.7 98.7 98.7 Pulse 110 110 Resp 18 18 16 16 B/P (MAP) 186/89 (121) 186/89 (121) Pulse Ox 97 97 97 O2 Delivery Room Air Room Air Room Air 08/06/17 08/06/17 08/06/17 08/06/17 17:08 19:15 19:55 20:00 Temp 98.0 98.0 Pulse 110 72 Resp 20 B/P (MAP) 186/89 154/77 (102) Pulse Ox 97 94 O2 Delivery Room Air Room Air Room Air 08/06/17 08/06/17 08/07/17 08/07/17 22:38 23:48 02:09 03:02 Temp 98.6 98.6 98.6 98.6 Pulse 74 66 Resp 20 20 B/P (MAP) 185/90 (121) 172/79 (110) Pulse Ox 94 96 96 92 O2 Delivery Room Air Room Air Room Air Room Air 08/07/17 08/07/17 08/07/17 08/07/17 05:51 06:55 08:00 08:16 Temp 98.6 98.6 Pulse 72 Resp 19 B/P (MAP) 180/85 (116) Pulse Ox 92 97 97 O2 Delivery Room Air Room Air Room Air Room Air 08/07/17 08/07/17 08/07/17 08/07/17 10:24 10:40 11:34 14:56 Temp 97.8 98.1 97.8 98.1 Pulse 58 69 Resp 18 18 B/P (MAP) 162/75 (104) 184/83 (116) Pulse Ox 99 99 99 97 O2 Delivery Room Air Room Air Room Air Room Air Intake and Output 08/06/17 08/06/17 08/07/17 15:00 23:00 07:00 Intake Total 1000 ml 200 ml 0 ml Output Total 500 ml Balance 1000 ml -300 ml 0 ml ELSIE MURILLO MD Aug 07, 2017 15:24
[2017-08-07] MEDS ORDERED: fentaNYL PF VIAL 100 MCG/2 ML VIAL IV PRN (18:00)
[2017-08-07] MEDS: oxyCODONE/APAP 5/325 1 TAB TABLET PO PRN (18:38)
[2017-08-07 19:00] VITALS: BP 177/87
[2017-08-07 23:00] VITALS: BP 156/96
[2017-08-08 03:08] VITALS: BP 134/85
[2017-08-08 07:40] VITALS: BP 159/75
[2017-08-08] MEDS: valACYclovir 500 MG TABLET. PO SCH ×2 (09:34→19:46)
[2017-08-08] MEDS: POTASSIUM CL 30MEQ D5-0.45NACL 1,000 ML IV SCH ×2 (09:35→19:43)
--- NOTE | 2017-08-08 11:25 | PDOC ---
G I PROGRESS NOTE Subjective "Stomach hurts", roughly in area of shingles. Tolerating liquids, but reluctant to advance. No N, V. Objective Reviewed images from EGD/EUS done last Monday that were given to patient. No copy of formal report (have requested). Physical Exam Lungs clear. RRR Abdomen soft, not distended. Zoster looks some better. Review of Relevant I have reviewed the following items patrizia (where applicable) has been applied. Medications Current Medications Fentanyl Citrate (Fentanyl 2ml Vial) 100 mcg 1X ONCE IV Last administered on 08/06/17 12:01; Start 08/06/17 at 11:45; Stop 08/06/17 at 11:46; Status DC Ondansetron HCl (Zofran) 8 mg 1X ONCE IV Last administered on 08/06/17 12:00 ; Start 08/06/17 at 11:45; Stop 08/06/17 at 11:46; Status DC Fentanyl Citrate (Fentanyl 2ml Vial) 50 mcg PRN Q15MIN PRN IV PAIN GREATER THAN 3/10 Last administered on 08/06/17 14:28; Start 08/06/17 at 11:45; Stop 08/07/17 at 11:44; Status DC Sodium Chloride 1,000 ml @ 1,000 mls/hr 1X ONCE IV Last administered on 08/06 12:00; Start 08/06/17 at 11:45; Stop 08/06/17 at 12:44; Status DC Ondansetron HCl (Zofran) 4 mg PRN Q8HRS PRN IV NAUSEA/VOMITING; Start at 14:45; Stop 08/07/17 at 14:44; Status DC Fentanyl Citrate (Fentanyl 2ml Vial) 50 mcg PRN Q2HR PRN IV PAIN Last administered on 08/07/17 10:40; Start 08/06/17 at 14:45; Stop 08/07/17 at 14 :44; Status DC Sodium Chloride 1,000 ml @ 75 mls/hr [id number] IV Last administered on 04:20; Start 08/06/17 at 15:00; Stop 08/07/17 at 11:57; Status DC Labetalol HCl (Normodyne) 20 mg PRN Q6HRS PRN IVP HYPERTENSION, SEE COMMENTS Last administered on 08/06/17 17:08; Start 08/06/17 at 16:45 Potassium Chloride/Dextrose/ Sod Cl 1,000 ml @ 100 mls/hr Q10H IV Last administered on 08/08/17 09:35; Start 08/07/17 at 12:00 Valacyclovir HCl (Valtrex) 1,000 mg BID PO Last administered on 08/08/17 09: 34; Start 08/07/17 at 13:00 Iohexol (Omnipaque 240 Mg/ml) 30 ml 1X ONCE PO Last administered on 12:45; Start 08/07/17 at 12:45; Stop 08/07/17 at 12:46; Status DC Iohexol (Omnipaque 300 Mg/ml) 75 ml 1X ONCE IV Last administered on 14:11; Start 08/07/17 at 12:45; Stop 08/07/17 at 12:46; Status DC Info (Do NOT chart on this entry -- for MONITORING) 1 each PRN DAILY PRN MC SEE COMMENTS; Start 08/07/17 at 12:45; Stop 08/09/17 at 12:44 Fentanyl Citrate (Fentanyl 2ml Vial) 50 mcg PRN Q2HR PRN IV PAIN; Start at 18:00 Oxycodone/ Acetaminophen (Percocet 5/325) 1 tab PRN Q4HRS PRN PO PAIN Last administered on 08/07/17 18:38; Start 08/07/17 at 18:00 Active Scripts Active Zofran Odt (Ondansetron) 4 Mg Tab.rapdis 1 Tab SL Q8HRS PRN Lisinopril 20 Mg Tablet 20 Mg PO DAILY Omeprazole 40 Mg Capsule. 1 Cap PO DAILY Reported Tramadol Hcl 50 Mg Tablet 1 Tab PO PRN Q6HRS Gabapentin 300 Mg Capsule 300 Mg PO TID Cod Liver Oil 1 Each Capsule 1 Each PO DAILY Biotin 5,000 Mcg Tab.rapdis 5,000 Mcg PO DAILY Black Cohosh Extract (Black Cohosh Root Extract) 80 Mg Capsule 40 Mg PO PRN PRN Centrum Silver Tablet (Multivits-Min/Fa/Lycopene/Lut) 1 Each Tablet 1 Each PO DAILY Vitamin B-12 5,000 Mcg Tab Sl (Cyanocobalamin/Cobamamide) 1 Each Tab.subl 1 Each SL Multivitamins (Multivitamin) 1 Each Tablet 1 Tab PO DAILY Vitamin E (Vitamin E Mixed) 400 Unit Capsule 400 Unit PO DAILY Vitamin C (Ascorbic Acid) 500 Mg Tablet 500 Mg PO DAILY Vitamin D3 (Cholecalciferol (Vitamin D3)) 400 Unit Tablet 400 Unit PO DAILY Folic Acid 1 Mg Tablet 1 Tab PO DAILY Vitals/I & O Vital Sign - Last 24 Hours 08/07/17 08/07/17 08/07/17 08/07/17 11:34 14:56 18:38 19:00 Temp 98.1 98.2 98.1 98.2 Pulse 69 68 Resp 18 18 B/P (MAP) 184/83 (116) 177/87 (117) Pulse Ox 99 97 97 96 O2 Delivery Room Air Room Air Room Air Room Air 08/07/17 08/07/17 08/07/17 08/08/17 19:44 20:00 23:00 03:08 Temp 98.8 99.8 98.8 99.8 Pulse 71 68 Resp 18 18 B/P (MAP) 156/96 (116) 134/85 (101) Pulse Ox 97 99 O2 Delivery Room Air Room Air Room Air Room Air 08/08/17 08/08/17 07:40 08:00 Temp 98.9 98.9 Pulse 76 Resp 17 B/P (MAP) 159/75 (103) Pulse Ox 99 O2 Delivery Room Air Room Air Intake and Output 08/07/17 08/07/17 08/08/17 14:59 22:59 06:59 Intake Total 0 ml 0 ml Balance 0 ml 0 ml Problem List Problems Medical Problems: (1) Abdominal pain Status: Acute (2) Pancreatic pseudocyst Status: Acute Assessment Enlarging pseudocyst. [place] [facility] [place] notions of [place] transgast[place]; have no info re: his level of expertise with this. Plan of Care: Continue current Tx, Mgmt Plan of Care Note When feasible, have cyst dealt with. ANTONIO GAMINO MD Aug 08, 2017 11:25
[2017-08-08 11:36] VITALS: BP 173/90
--- NOTE | 2017-08-08 11:42 | PDOC ---
PROGRESS NOTES Chief Complaint Chief Complaint back pain shingles, acute neuropathy Pancreatitis and pseudocyst. weakness, debility History of Present Illness History of Present Illness back pain, puritis no event normal PO itnake, normal stools Vitals Vitals Vital Signs Date Time Temp Pulse Resp B/P (MAP) Pulse Ox O2 Delivery O2 Flow Rate FiO2 08/08/17 11:36 98.7 74 17 173/90 (117) 100 Room Air 98.7 Physical Exam General: Alert, Oriented X3, Cooperative, No acute distress Heart: Regular rate, Normal S1, Normal S2, No murmurs Lungs: Clear Abdomen: Soft, Other (tender over RUQ where vesicles are) Extremities: No clubbing, No cyanosis Skin: Other (vesicles to RUQ/right back--tender to touch, no LUQ pain) Review of Systems Review of Systems no n.vd.' Assessment and Plan Assessmemt and Plan Cont IV fluid with anti-viral meds GI reviewing outside imaging and plans, potential drain to cyst, options discussed Problems Medical Problems: (1) Abdominal pain Status: Acute (2) Pancreatic pseudocyst Status: Acute Problems: Comment Review of Relevant I have reviewed the following items patrizia (where applicable) has been applied. Medications Current Medications Fentanyl Citrate (Fentanyl 2ml Vial) 100 mcg 1X ONCE IV Last administered on 08/06/17 12:01; Start 08/06/17 at 11:45; Stop 08/06/17 at 11:46; Status DC Ondansetron HCl (Zofran) 8 mg 1X ONCE IV Last administered on 08/06/17 12:00 ; Start 08/06/17 at 11:45; Stop 08/06/17 at 11:46; Status DC Fentanyl Citrate (Fentanyl 2ml Vial) 50 mcg PRN Q15MIN PRN IV PAIN GREATER THAN 3/10 Last administered on 08/06/17 14:28; Start 08/06/17 at 11:45; Stop 08/07/17 at 11:44; Status DC Sodium Chloride 1,000 ml @ 1,000 mls/hr 1X ONCE IV Last administered on 08/06 12:00; Start 08/06/17 at 11:45; Stop 08/06/17 at 12:44; Status DC Ondansetron HCl (Zofran) 4 mg PRN Q8HRS PRN IV NAUSEA/VOMITING; Start at 14:45; Stop 08/07/17 at 14:44; Status DC Fentanyl Citrate (Fentanyl 2ml Vial) 50 mcg PRN Q2HR PRN IV PAIN Last administered on 08/07/17 10:40; Start 08/06/17 at 14:45; Stop 08/07/17 at 14 :44; Status DC Sodium Chloride 1,000 ml @ 75 mls/hr [id number] IV Last administered on 04:20; Start 08/06/17 at 15:00; Stop 08/07/17 at 11:57; Status DC Labetalol HCl (Normodyne) 20 mg PRN Q6HRS PRN IVP HYPERTENSION, SEE COMMENTS Last administered on 08/06/17 17:08; Start 08/06/17 at 16:45 Potassium Chloride/Dextrose/ Sod Cl 1,000 ml @ 100 mls/hr Q10H IV Last administered on 08/08/17 09:35; Start 08/07/17 at 12:00 Valacyclovir HCl (Valtrex) 1,000 mg BID PO Last administered on 08/08/17 09: 34; Start 08/07/17 at 13:00 Iohexol (Omnipaque 240 Mg/ml) 30 ml 1X ONCE PO Last administered on 12:45; Start 08/07/17 at 12:45; Stop 08/07/17 at 12:46; Status DC Iohexol (Omnipaque 300 Mg/ml) 75 ml 1X ONCE IV Last administered on 14:11; Start 08/07/17 at 12:45; Stop 08/07/17 at 12:46; Status DC Info (Do NOT chart on this entry -- for MONITORING) 1 each PRN DAILY PRN MC SEE COMMENTS; Start 08/07/17 at 12:45; Stop 08/09/17 at 12:44 Fentanyl Citrate (Fentanyl 2ml Vial) 50 mcg PRN Q2HR PRN IV PAIN; Start at 18:00 Oxycodone/ Acetaminophen (Percocet 5/325) 1 tab PRN Q4HRS PRN PO PAIN Last administered on 08/07/17 18:38; Start 08/07/17 at 18:00 Active Scripts Active Zofran Odt (Ondansetron) 4 Mg Tab.rapdis 1 Tab SL Q8HRS PRN Lisinopril 20 Mg Tablet 20 Mg PO DAILY Omeprazole 40 Mg Capsule. 1 Cap PO DAILY Reported Tramadol Hcl 50 Mg Tablet 1 Tab PO PRN Q6HRS Gabapentin 300 Mg Capsule 300 Mg PO TID Cod Liver Oil 1 Each Capsule 1 Each PO DAILY Biotin 5,000 Mcg Tab.rapdis 5,000 Mcg PO DAILY Black Cohosh Extract (Black Cohosh Root Extract) 80 Mg Capsule 40 Mg PO PRN PRN Centrum Silver Tablet (Multivits-Min/Fa/Lycopene/Lut) 1 Each Tablet 1 Each PO DAILY Vitamin B-12 5,000 Mcg Tab Sl (Cyanocobalamin/Cobamamide) 1 Each Tab.subl 1 Each SL Multivitamins (Multivitamin) 1 Each Tablet 1 Tab PO DAILY Vitamin E (Vitamin E Mixed) 400 Unit Capsule 400 Unit PO DAILY Vitamin C (Ascorbic Acid) 500 Mg Tablet 500 Mg PO DAILY Vitamin D3 (Cholecalciferol (Vitamin D3)) 400 Unit Tablet 400 Unit PO DAILY Folic Acid 1 Mg Tablet 1 Tab PO DAILY Vitals/I & O Vital Sign - Last 24 Hours 08/07/17 08/07/17 08/07/17 08/07/17 14:56 18:38 19:00 19:44 Temp 98.1 98.2 98.1 98.2 Pulse 69 68 Resp 18 18 B/P (MAP) 184/83 (116) 177/87 (117) Pulse Ox 97 97 96 97 O2 Delivery Room Air Room Air Room Air Room Air 08/07/17 08/07/17 08/08/17 08/08/17 20:00 23:00 03:08 07:40 Temp 98.8 99.8 98.9 98.8 99.8 98.9 Pulse 71 68 76 Resp 18 18 17 B/P (MAP) 156/96 (116) 134/85 (101) 159/75 (103) Pulse Ox 99 99 O2 Delivery Room Air Room Air Room Air Room Air 08/08/17 08/08/17 08:00 11:36 Temp 98.7 98.7 Pulse 74 Resp 17 B/P (MAP) 173/90 (117) Pulse Ox 100 O2 Delivery Room Air Room Air Intake and Output 08/07/17 08/07/17 08/08/17 15:00 23:00 07:00 Intake Total 0 ml 0 ml Balance 0 ml 0 ml ELSIE MURILLO MD Aug 08, 2017 11:42
--- NOTE | 2017-08-08 13:04 | PDOC ---
SURGICAL PROGRESS NOTE Subjective Pt with c/o epigastric pain and shingles pain, hesitant to advance diet Vital Signs Vital Signs Date Time Temp Pulse Resp B/P (MAP) Pulse Ox O2 Delivery O2 Flow Rate FiO2 08/08/17 11:36 98.7 74 17 173/90 (117) 100 Room Air 98.7 I&O Intake and Output 08/08/17 07:00 Intake Total 0 ml Balance 0 ml Intake Oral 0 ml # Voids 4 General: Alert, Oriented X3, Cooperative, mild distress Abdomen: Soft, Other (mild TTP) Problem List Problems Medical Problems: (1) Abdominal pain Status: Acute (2) Pancreatic pseudocyst Status: Acute Assessment/Plan pancreatic pseudocyst cont supportive care for shingles consider cystgastrostomy electively, or f/u with [facility] for endoscopic drainage Problems: YANELI SANTAMARIA MD Aug 08, 2017 13:04
[2017-08-08 15:01] VITALS: BP 171/83
[2017-08-08] MEDS: oxyCODONE/APAP 5/325 1 TAB TABLET PO PRN ×2 (15:09→20:01)
[2017-08-08 19:48] VITALS: BP 184/84
[2017-08-08] MEDS: LABETALOL 20 MG/4 ML DISP.SYRIN. IVP PRN (20:02)
[2017-08-08 23:57] VITALS: BP 161/66
[2017-08-09 03:55] VITALS: BP 157/83
[2017-08-09] MEDS: POTASSIUM CL 30MEQ D5-0.45NACL 1,000 ML IV SCH (06:33)
[2017-08-09 07:15] VITALS: BP 153/81
[2017-08-09 07:59] LABS: BASO # 0.1 x10^3/uL (0.0-0.2); BASO % 1 % (0-3); EOS % 3 % (0-3); HEMATOCRIT 28.2 % (36.0-47.0); HEMOGLOBIN 9.1 g/dL (12.0-15.5); LYMPH # 1.1 x10^3/uL (1.0-4.8); LYMPH % 26 % (24-48); MEAN CORPUSCULAR HEMOGLOBIN 29 pg (25-35); MEAN CORPUSCULAR HGB CONC 32 g/dL (31-37); MEAN CORPUSCULAR VOLUME 91 fL (79-100); MONO % 24 % (0-9); NEUT % 46 % (31-73); PLATELET COUNT 284 x10^3/uL (140-400); WHITE BLOOD COUNT 4.1 x10^3/uL (4.0-11.0)
[2017-08-09 08:06] LABS: ALBUMIN 2.4 g/dL (3.4-5.0); CALCIUM 8.8 mg/dL (8.5-10.1); CREATININE 0.8 mg/dL (0.6-1.0); GFR 87.4; POTASSIUM 3.9 mmol/L (3.5-5.1)
[2017-08-09 08:25] LABS: ALBUMIN/GLOBULIN RATIO 0.6 (1.0-1.7); TOTAL BILIRUBIN 0.3 mg/dL (0.2-1.0); TOTAL PROTEIN 6.3 g/dL (6.4-8.2)
[2017-08-09] MEDS: valACYclovir 500 MG TABLET. PO SCH (08:55)
[2017-08-09 09:07] LABS: % EOS 2 % (0-5); ANISOCYTOSIS SLIGHT; PLT ESTIMATE ADEQUATE (ADEQUATE)
--- NOTE | 2017-08-09 09:50 | PDOC ---
Subjective: Subjective: Burning pain RUQ. Would like to eat more today. Objective: Vital Signs: Vital Signs Date Time Temp Pulse Resp B/P (MAP) Pulse Ox O2 Delivery O2 Flow Rate FiO2 08/09/17 07:15 99.3 72 19 153/81 (105) 99 Room Air 99.3 Labs: Laboratory Tests Test 08/09/17 07:30 White Blood Count 4.1 x10^3/uL Red Blood Count 3.10 x10^6/uL Hemoglobin 9.1 g/dL Hematocrit 28.2 % Mean Corpuscular Volume 91 fL Mean Corpuscular Hemoglobin 29 pg Mean Corpuscular Hemoglobin Concent 32 g/dL Red Cell Distribution Width 17.0 % Platelet Count 284 x10^3/uL Neutrophils (%) (Auto) 46 % Lymphocytes (%) (Auto) 26 % Monocytes (%) (Auto) 24 % Eosinophils (%) (Auto) 3 % Basophils (%) (Auto) 1 % Neutrophils # (Auto) 1.9 x10^3uL Lymphocytes # (Auto) 1.1 x10^3/uL Monocytes # (Auto) 1.0 x10^3/uL Eosinophils # (Auto) 0.1 x10^3/uL Basophils # (Auto) 0.1 x10^3/uL Segmented Neutrophils % 55 % Lymphocytes % 22 % Monocytes % 21 % Eosinophils % 2 % Platelet Estimate Adequate Anisocytosis Slight Sodium Level 136 mmol/L Potassium Level 3.9 mmol/L Chloride Level 104 mmol/L Carbon Dioxide Level 24 mmol/L Anion Gap 8 Blood Urea Nitrogen 5 mg/dL Creatinine 0.8 mg/dL Estimated GFR (Cockcroft-Gault) 87.4 BUN/Creatinine Ratio 6 Glucose Level 99 mg/dL Calcium Level 8.8 mg/dL Total Bilirubin 0.3 mg/dL Aspartate Amino Transf (AST/SGOT) 15 U/L Alanine Aminotransferase (ALT/SGPT) 9 U/L Alkaline Phosphatase 72 U/L Total Protein 6.3 g/dL Albumin 2.4 g/dL Albumin/Globulin Ratio 0.6 PE: GEN: NAD LUNGS: CTAB HEART: RRR ABD: BS+, no epigastric tenderness SKIN: rash RUQ NEURO/PSYCH: A & O 3 A/P: Enlarging pancreatic pseudocyst Shingles Anemia - stable -- ADAT. Surg following, discussed cystgastrostomy later on. GLORIA KOHLI Aug 09, 2017 09:50
[2017-08-09] MEDS ORDERED: PANTOPRAZOLE 40 MG TABLET.DR. PO SCH (10:30)
[2017-08-09 10:32] VITALS: BP 164/83
[2017-08-09] MEDS: oxyCODONE/APAP 5/325 1 TAB TABLET PO PRN ×2 (10:46→14:35)
[2017-08-09] MEDS ORDERED: VALA500T PO (13:49)
[2017-08-09] MEDS ORDERED: OXYC1TAB7 PO (13:49)
--- NOTE | 2017-09-07 10:38 | PDOC3 ---
Discharge Summary Visit Information Date of Admission: Aug 06, 2017 Date of Discharge: Aug 09, 2017 Admitting Diagnosis: back pain Final Diagnosis back pain shingles, acute neuropathy Pancreatitis and pseudocyst. weakness, debility hypokalemia anemia moderate/severe malnutrition, POA, w/ hypoalbumin and BMI 23 Vitals Problems Medical Problems: (1) Abdominal pain Status: Acute (2) Pancreatic pseudocyst Status: Acute Brief Hospital Course Allergies Allergies Coded Allergies Type Severity Reaction Last Updated Verified No Known Medication Allergies Allergy Unknown 08/19/17 Yes aspirin Adverse Reaction Intermediate HX OF PERFORATED ULCERS 08/15/17 Yes Brief Hospital Course Ms. Holman is a 67 old admit with acute back pain and flank pain, CT showed pancreatic pseudocyst, then skin changed to have shingles, Acyclovir 5x a day started for treatment, back pain, puritis po intake improved no change in stool pt DC with plan to f.u soon to have the cyst or pseudocyst of her pancreas addressed, plan bx or drainage, GI and gen surg following, Discharge Information Condition at Discharge: Improved Follow Up: Weeks Disposition/Orders: D/C to Home Scheduled Ascorbic Acid (Vitamin C), 500 MG PO DAILY, (Reported) Biotin (Biotin), 5,000 MCG PO DAILY, (Reported) Cholecalciferol (Vitamin D3) (Vitamin D3), 400 UNIT PO DAILY, (Reported) Cod Liver Oil (Cod Liver Oil), 1 EACH PO DAILY, (Reported) Folic Acid (Folic Acid), 1 TAB PO DAILY, (Reported) Gabapentin (Gabapentin), 300 MG PO TID, (Reported) Lisinopril (Lisinopril), 20 MG PO DAILY Multivitamin (Multivitamins), 1 TAB PO DAILY, (Reported) Multivits-Min/Fa/Lycopene/Lut (Centrum Silver Tablet), 1 EACH PO DAILY, ( Reported) Omeprazole (Omeprazole), 1 CAP PO DAILY Valacyclovir Hcl (Valacyclovir), 1,000 MG PO BID Vitamin E Mixed (Vitamin E), 400 UNIT PO DAILY, (Reported) Scheduled PRN Black Cohosh Root Extract (Black Cohosh Extract), 40 MG PO PRN PRN for SHIVERING , (Reported) Ondansetron (Zofran Odt), 1 TAB SL Q8HRS PRN for NAUSEA/VOMITING Oxycodone Hcl/Acetaminophen (Oxycodone-Acetaminophen 5-325), 1 TAB PO PRN Q4HRS PRN for PAIN Miscellaneous Medications Cyanocobalamin/Cobamamide (Vitamin B-12 5,000 Mcg Tab Sl), 1 EACH SL, (Reported) Patient Instructions Patient Instructions > 30 min face to face discussion of plan ELSIE MURILLO MD Sep 07, 2017 10:38
== END 2017-08-09 14:35 | disposition home or self-care (01) | DRG 438 ==
LOC: ER 10:46 → 6 SOUTH 14:16
PROVIDERS: ADMIT Internal Medicine; ATTEND Internal Medicine
DX: K86.3 Pseudocyst of pancreas (principal); K85.90 Acute pancreatitis without necrosis or infection, unspecified; B02.9 Zoster without complications; M19.90 Unspecified osteoarthritis, unspecified site; F10.20 Alcohol dependence, uncomplicated; F17.210 Nicotine dependence, cigarettes, uncomplicated; M10.9 Gout, unspecified; I10 Essential (primary) hypertension; G62.9 Polyneuropathy, unspecified; K21.9 Gastro-esophageal reflux disease without esophagitis; D64.9 Anemia, unspecified; K59.00 Constipation, unspecified; R07.89 Other chest pain; Z82.49 Family history of ischemic heart disease and other diseases of the circulatory system; Z80.6 Family history of leukemia; Z82.3 Family history of stroke; Z83.3 Family history of diabetes mellitus; Z83.49 Family history of other endocrine, nutritional and metabolic diseases; Z90.710 Acquired absence of both cervix and uterus; Z87.440 Personal history of urinary (tract) infections; Z87.11 Personal history of peptic ulcer disease; Z98.891 History of uterine scar from previous surgery; Z98.51 Tubal ligation status
CPT/HCPCS: 36415; 74177; 76700; 80053; 83690; 85007; 85025; 96361; 96374; 96375; 96376; J2405; J3010; J3490; J7030; Q9966; Q9967; 99285-25

== ENCOUNTER 2019-08-03 01:23 | Emergency (ER) | payer OTHER ==
[~2019-08-03] VITALS: Ht 162.6 cm; Wt 68.0 kg
[~2019-08-03 01:23] MED LIST changes: -COD1CAPS2 PO; +COD1CAPS6 PO; -GABA-586 PO; +GABA300C18 PO; +LISI1TAB20 PO; +LISI1TAB23 PO; -LISI1TAB3 PO; -LISI1TAB7 PO; +OMEP20CA10 PO; -OMEP20CA9 PO; +OMEP40CA45 PO; -OMEP40CA5 PO; +OXYC1TAB7 PO; +TRAM-48 PO; +VALA500T PO; +VITA-8 PO; -VITA400C36 PO
[2019-08-03 01:35] VITALS: BP 172/79
--- NOTE | 2019-08-03 01:40 | PHYS DOC ---
Past Medical History Past Medical History: Hypertension Additional Past Medical Histor: ULCERS, NEUROPATHY Past Surgical History: Cholecystectomy, Hysterectomy Additional Past Surgical Histo: LAP Alcohol Use: None Drug Use: None Adult General HPI HPI 68-year-old female with history of hypertension presents to the emergency department via EMS. His complaint is that she cannot stop crying. Patient states that her best friend today she found out around noon states she's been drinking wine since that time. She called EMS because she's had uncontrolled emotions and cannot stop crying. Patient denies any auditory, visual hallucinations. She denies any suicidal or homicidal ideation. Patient denies any chest pain, shortness breath, nausea, vomiting, abdominal pain, headache, visual change. She has no medical complaints on exam All other ROS negative unless documented in HPI Review of Systems Review of Systems See Above Current Medications Current Medications Current Medications Medications (Trade) Dose Ordered Sig/Suhas Start Time Stop Time Status Last Admin Dose Admin Alprazolam (Xanax) 0.25 mg 1X ONCE 08/03/19 02:00 08/03/19 02:01 DC 08/03/19 01:54 0.25 MG Allergies Allergies Allergies Coded Allergies Type Severity Reaction Last Updated Verified aspirin Adverse Reaction Intermediate HX OF PERFORATED ULCERS 08/15/17 Yes Physical Exam Physical Exam See Above Constitutional: Well developed, well nourished, non-toxic appearance, tearful [] HENT: Normocephalic, atraumatic, bilateral external ears normal, oropharynx moist, no oral exudates, nose normal. [] Eyes: PERRLA, EOMI, conjunctiva normal, no discharge. [] Cardiovascular:Heart rate regular rhythm, no murmur [] Lungs & Thorax: Bilateral breath sounds clear to auscultation [] Skin: Warm, dry, no erythema, no rash. [] Extremities: No tenderness, no cyanosis, no clubbing, ROM intact, no edema. [] Neurologic: Alert and oriented X 3, no focal deficits noted. [] Psychologic: Tearful [] Current Patient Data Vital Signs Vital Signs Date Time Temp Pulse Resp B/P (MAP) Pulse Ox O2 Delivery O2 Flow Rate FiO2 08/03/19 01:35 98.8 77 18 172/79 (110) 95 Room Air 98.8 EKG EKG [] Radiology/Procedures Radiology/Procedures [] Course & Med Decision Making Course & Med Decision Making Pertinent Labs and Imaging studies reviewed. (See chart for details) []68-year-old female with history of hypertension presents to the emergency department via EMS. His complaint is that she cannot stop crying. Patient states that her best friend today she found out around noon states she's been drinking wine since that time. She called EMS because she's had uncontrolled emotions and cannot stop crying. Patient denies any auditory, vi sual hallucinations. She denies any suicidal or homicidal ideation. Patient denies any chest pain, shortness breath, nausea, vomiting, abdominal pain, headache, visual change. She has no medical complaints on exam. Xanax 0.25mg po x 1 Discharge home with family Recommend follow up with PCP as needed Dragon Disclaimer Dragon Disclaimer This electronic medical record was generated, in whole or in part, using a voice recognition dictation system. Departure Departure Impression: Primary Impression: Crying associated with mood Additional Impression: Grief reaction Disposition: 01 HOME, SELF-CARE Condition: STABLE Referrals: JENARO TOWNSEND (PCP) Patient Instructions: Grief Reaction Additional Instructions: Recommend follow up with PCP 3 - 5 days Return to the ER with worsening symptoms, intractable pain, fever, altered mental status Tylenol/Motrin as needed for pain Problem Qualifiers JHOANA ASHER MD Aug 03, 2019 01:40
[2019-08-03] MEDS ORDERED: ALPRAZolam 0.25 MG TABLET PO ONE (02:00)
== END 2019-08-03 02:23 | disposition home or self-care (01) ==
LOC: ER 01:23
DX: R45.83 Excessive crying of child, adolescent or adult (principal); F43.20 Adjustment disorder, unspecified; I10 Essential (primary) hypertension; Z88.6 Allergy status to analgesic agent
CPT/HCPCS: 99283

== ENCOUNTER 2019-09-29 07:31 | Emergency (ER) | payer MEDICARE, OTHER ==
[~2019-09-29 07:31] MED LIST changes: -OMEP20CA10 PO; +OMEP20CA16 PO
[2019-09-29 07:45] VITALS: BP 135/78
[2019-09-29] MEDS ORDERED: CEPH500C PO (08:07)
[2019-09-29] MEDS ORDERED: PERM60CR12 TP (08:07)
[2019-09-29] MEDS ORDERED: cefTRIAXone IM 1 GM VIAL IM ONE (08:15)
--- NOTE | 2019-09-29 08:22 | PHYS DOC ---
Past Medical History Past Medical History: Hypertension, Pancreatitis Additional Past Medical Histor: ULCERS, NEUROPATHY, GOUT Past Surgical History: No Surgical History Additional Past Surgical Histo: LAP Alcohol Use: Occasionally Drug Use: None Adult General Chief Complaint Chief Complaint: SKIN RASH/ABSCESS [facility] Patient is a 69 year old female presenting with rash. Apparently she went over to a friend's O she did some drinking she does not rub or exactly what happened but then when she came home she had a rash on her left arm left shoulder left neck area. Possible bug bite she thinks it might of been bugs in the health she's not sure. No fever no chest pain no shortness of breath no vomiting just this rash very very itchy and somewhat painful. Review of Systems Review of Systems Constitutional: Denies fever or chills [] Eyes: Denies change in visual acuity, redness, or eye pain [] HENT: Denies nasal congestion or sore throat [] Respiratory: Denies cough or shortness of breath [] Cardiovascular: No additional information not addressed in HPI [] GI: Denies abdominal pain, nausea, vomiting, bloody stools or diarrhea [] : All other systems were reviewed and found to be within normal limits, except as documented in this note. Current Medications Current Medications Current Medications Medications (Trade) Dose Ordered Sig/Suhas Start Time Stop Time Status Last Admin Dose Admin Ceftriaxone Sodium (Rocephin Im) 1 gm 1X ONCE 09/29/19 08:15 09/29/19 08:16 DC Allergies Allergies Allergies Coded Allergies Type Severity Reaction Last Updated Verified aspirin Adverse Reaction Intermediate HX OF PERFORATED ULCERS 08/15/17 Yes Physical Exam Physical Exam Constitutional: Well developed, well nourished, no acute distress, non-toxic appearance. [] HENT: Normocephalic, atraumatic, bilateral external ears normal, oropharynx moist, no oral exudates, nose normal. [] Eyes: PERRLA, EOMI, conjunctiva normal, no discharge. [] Neck: Normal range of motion, no tenderness, supple, no stridor. [] Cardiovascular:Heart rate regular rhythm, no murmur [] Lungs & Thorax: Bilateral breath sounds clear to auscultation [] Abdomen: Bowel sounds normal, soft, no tenderness, no masses, no pulsatile masses. [] Skin: Patient has a pleuritic papular rash there are some papules and straight lines on the lateral aspect of the left bicep area extending up to the trapezius area. Really no vesicles at all is very very itchy mildly tender to palpation no fluctuance no bullae Back: No tenderness, no CVA tenderness. [] Extremities: No tenderness, no cyanosis, no clubbing, ROM intact, no edema. [] Neurologic: Alert and oriented X 3, normal motor function, normal sensory function, no focal deficits noted. [] Psychologic: Affect normal, judgement normal, mood normal. [] Current Patient Data Vital Signs Vital Signs Date Time Temp Pulse Resp B/P (MAP) Pulse Ox O2 Delivery O2 Flow Rate FiO2 09/29/19 07:45 98.3 73 18 135/78 (97) 96 Room Air 98.3 EKG EKG [] Radiology/Procedures Radiology/Procedures [] Course & Med Decision Making Course & Med Decision Making Pertinent Labs and Imaging studies reviewed. (See chart for details) []Rash could be consistent with scabies patient will be given permethrin. Also will give some antibiotics in case of superinfection. Return precautions discussed patient voiced understanding. It does not look like shingles to me Dragon Disclaimer Dragon Disclaimer This electronic medical record was generated, in whole or in part, using a voice recognition dictation system. Departure Departure Impression: Primary Impression: Rash Disposition: 01 HOME, SELF-CARE Condition: STABLE Patient Instructions: Rash, [id number] Scripts Permethrin (PERMETHRIN) 60 Gm Cream..g. 1 CIERRA TP ONCE, #60 GM 1 Refill Prov: BARAK GOFF MD 09/29/19 Cephalexin (CEPHALEXIN) 500 Mg Capsule 1 CAP PO QID, #28 CAP Prov: BARAK GOFF MD 09/29/19 BARAK GOFF MD Sep 29, 2019 08:22
== END 2019-09-29 08:40 | disposition home or self-care (01) ==
LOC: ER 07:31
DX: R21 Rash and other nonspecific skin eruption (principal); I10 Essential (primary) hypertension; M10.9 Gout, unspecified; Z88.6 Allergy status to analgesic agent
CPT/HCPCS: 96372; 99283; J0696